=== PATIENT | female | born 1950 | race Caucasian/White ===

== ENCOUNTER 2021-07-23 11:45 | Outpatient (REF) | payer OTHER, SELFPAY ==
[2021-07-23 13:42] LABS: MANUAL DIFF FLAG NO
[2021-07-23 14:03] LABS: Basophils Absolute Auto 0.1 X10*3/uL (0.0-0.2); Basophils Percent Auto 0.5 % (0-2); Eosinophils Absolute Auto 0.3 X10*3/uL (0.0-0.4); Eosinophils Percent Auto 2.8 % (0-4); Hemoglobin 14.9 g/dl (12.0-16.0); Imm Gran Abs Auto 0.02 X10*3/uL (0.00-0.03); Imm Gran Pct Auto 0.2 % (0.0-0.4); Lymphocytes Absolute Auto 2.1 X10*3/uL (1.2-4.9); Lymphocytes Percent Auto 20.7 % (20-40); Mean Corpuscular HGB Conc 32.4 g/dl (31.0-35.0); Mean Corpuscular Hemoglobin 29.3 pg (27.0-33.0); Mean Corpuscular Volume 90.6 fL (80-98); Mean Platelet Volume 11.4 fL (9.4-12.3); Monocytes Percent Auto 9.6 % (2-11); Neutrophils Absolute Auto 6.8 X10*3/uL (2.0-8.3); Neutrophils Percent Auto 66.2 % (45-73); Platelet Count 426 X10*3/uL (160-400); Red Blood Count 5.08 X10*6/uL (4.20-5.50); White Blood Count 10.3 X10*3/uL (4.8-10.8)
[2021-07-23 14:10] LABS: Estimated Average Glucose 108 mg/dL; Hemoglobin A1c % 5.4 %
[2021-07-23 14:27] LABS: Anion Gap 15 (12-20); Blood Urea Nitrogen 11 mg/dL (9-16); Carbon Dioxide 23 mmol/L (22-29); Chloride 108 mmol/L (96-108); Estimated Glomerular Filt Rate > 60; Glucose Random 102 mg/dL (60-115); Sodium 142 mmol/L (135-145)
[2021-07-23 14:41] LABS: Thyroid Stimulating Hormone 1.11 uIU/mL (0.32-4.0)
== END 2021-07-23 11:46 | disposition home or self-care (01) ==
LOC: HO.HMGCLDS 11:45
PROVIDERS: PCP Physician Assistant Medical; Visit Provider Physician Assistant
DX: R10.9 Unspecified abdominal pain (principal); R42 Dizziness and giddiness; R63.4 Abnormal weight loss; R35.1 Nocturia
CPT/HCPCS: 36415; 80048; 83036; 84443; 85025

== ENCOUNTER 2024-05-28 13:45 | Outpatient (AMB) | payer OTHER, SELFPAY ==
--- OUTSIDE RECORDS SUMMARY | 2024-05-28 13:46 | XMS_ITS | Continuity of Care Document ---
Author Organization [facility] ter Address [address] [place] [id number]- Care Team Providers Care Classified Advertising Manager Name Role Phone Not on Staff, PCP Primary Care Physician Unavail able Encounter [facility] [place] Date(s): 02/01/22 - 02/01/[address] [address]- Encounter Diagnosis Blurred vision(Final) - 02/01/22 Discharge Disposition: A-D/C Home Attending Physician: Nerissa Hays MD Admitting Physician: Nerissa Hays MD Referring Physician: Not on Staff, Referring MD Allergies, Adverse Reactions, Alerts Substance Reaction Severity Status penicillin Active Bee Stings Active Latex Active Vital Signs Most recent to oldest [Reference Range]: 1 2 3 Oxygen Saturation [94-100 %] 100 % (02/01/22 4:02 PM) 100 % (02/01/22 2:22 PM) Pulse Rate [55-90 bpm] 64 bpm (02/01/22 6:14 PM) 64 bpm (02/01/22 4:02 PM) 65 bpm (02/01/22 2:22 PM) Blood Pressure [90-138/55-84 mm Hg] 129/71mm Hg (02/01/22 4:02 PM) 128/59mm Hg (02/01/22 2:22 PM) Respiratory Rate [16-30 br/min] 18 br/min (02/01/22 4:02 PM) 18 br/min (02/01/22 2:22 PM) Temperature [96.8-100.4 DegF] 98.5 DegF (02/01/22 4:02 PM) 98.7 DegF (02/01/22 2:22 PM) Mode of Delivery (Oxygen) Room air (02/01/22 4:02 PM) Room air (02/01/22 2:22 PM) Blood pressure sites Arm, left (02/01/22 4:02 PM) Temperature Route Oral (02/01/22 4:02 PM) Oral (02/01/22 2:22 PM) Social History Social History Type Response Smoking Status Never smoker entered on: 01/23/18 Sex
--- NOTE | 2024-05-28 14:14 | MHC.OFFWIV ---
Intake Vital Signs 05/28/24 14:15 Height 5 ft 6.75 in Weight 156 lb BMI 24.6 BP 118/84 Blood Pressure Location Lt brachial Position Sitting Pulse 76 Pulse Source Pulse Oximeter Temp 97.7 F Temp Source Temporal Artery Scan Pulse Oximetry (%) 96 Oxygen Delivery Method Room Air Intake Visit Reasons: EP ?UTI Intake Note: pt c/o urinary urgency and discomfort. Started Patient Tobacco Use Status: Never used Tobacco Allergies Penicillins [PENICILLINS] Allergy (Intermediate, Verified 05/28/24 14:14) HIVES latex [LATEX] Allergy (Mild, Verified 05/28/24 14:14) RASH Do you need a note to return to daycare/school/sports/work: No HPI HPI Comments History of Present Illness Details This is a 74-year-old female who presented to the walk-in clinic with her daughter complaining of dysuria and increased urinary frequency with decreased urine volume x2 days. Patient had an episode of urinary incontinence this morning, which is highly unusual for the patient. She denies any fever/chills. She denies any flank/back pain. Patient is otherwise feeling well no abdominal pain or nausea/vomiting/diarrhea. [facility] Medical History (Updated 07/23/21 @ 11:39 by CHER Pena) Nocturia more than twice per night Abdominal pain Dizziness Weight loss, non-intentional Social History Patient Tobacco Use Status: Never used Tobacco Review of Systems Const All systems reviewed & are unremarkable except as noted in HPI and below Reports no additional complaints Eyes Reports no additional complaints ENT Reports no additional complaints Card Reports no additional complaints Resp Reports no additional complaints GI Reports no additional complaints Reports no additional complaints Musc Reports no additional complaints Skin/Breast Reports system reviewed and no additional complaints, except as documented Neuro Reports no additional complaints Psych Reports no additional complaints Endo Reports no additional complaints Carroll/Lymph Reports no additional complaints Aller/Immun Reports no additional complaints Physical Exam Vital Signs: Last Vital Signs Temp 97.7 F 05/28/24 14:15 Pulse 76 05/28/24 14:15 BP 118/84 05/28/24 14:15 Pulse Ox 96 05/28/24 14:15 Oxygen Delivery Method Room Air 05/28/24 14:15 BMI result Body Mass Index 24.6 Const Other: Vital signs reviewed. Constitutional: Non-toxic appearing. No acute distress. Well-developed and well-nourished. HEENT: Normocephalic and atraumatic. Skin: Warm and dry. No rashes or lesions noted. Neck: Full and painless range of motion. No cervical lymphadenopathy. Cardio: Regular rate. No lower extremity edema. No JVD. Pulmonary: No respiratory distress. No accessory muscle usage. Gastrointestinal: Soft, nontender, and nondistended in all 4 quadrants. Normoactive bowel sounds in all 4 quadrants. Genitourinary: No CVA tenderness. Musculoskeletal: Normal range of motion in joints throughout the body. No deformity or other signs of injury. Neuro: Alert and oriented x4. Cranial nerves 2-12 grossly intact. No focal deficits appreciated. Psych: Normal mood and affect. Results AMB Urinalysis, Automated UA Leukoctes 70 Jessica/uL Last Edit by Nikita Quiroz CMA on 05/28/24 14:31 UA Nitrite Negative Last Edit by Nikita Quiroz CMA on 05/28/24 14:31 UA Urobilinogen 0.2 mg/dL Last Edit by Nikita Quiroz CMA on 05/28/24 14:31 UA Protein 15 mg/dL Last Edit by Nikita Quiroz CMA on 05/28/24 14:31 UA pH 5.5 Last Edit by Nikita Quiroz CMA on 05/28/24 14:31 UA Blood 10 Enzo/uL Last Edit by Nikita Quiroz CMA on 05/28/24 14:31 UA Specific [place] 1.025 Last Edit by Nikita Quiroz CMA on 05/28/24 14:31 UA Ketone Positive Last Edit by Nikita Quiroz CMA on 05/28/24 14:31 UA Bilirubin 1 mg/dL Last Edit by Nikita Quiroz CMA on 05/28/24 14:31 UA Glucose 0 mg/dL Last Edit by Nikita Quiroz CMA on 05/28/24 14:31 Results Reviewed Results Reviewed: Laboratory Last Values Urine pH (Auto) 5.5 05/28/24 14:30 Specific [place] (Auto) 1.025 05/28/24 14:30 Urine Protein (Auto) 15 mg/dL 05/28/24 14:30 Glucose (UA)(Auto) 0 mg/dL 05/28/24 14:30 Urine Ketones (Auto) Positive 05/28/24 14:30 Urine Blood (Auto) 10 Enzo/uL 05/28/24 14:30 Urine Nitrite (Auto) Negative 05/28/24 14:30 Urine Bilirubin (Auto) 1 mg/dL 05/28/24 14:30 Urine Urobilinogen (Auto) 0.2 mg/dL 05/28/24 14:30 Leukocyte Esterase (Auto) 70 Jessica/uL 05/28/24 14:30 Assessment & Plan Assessment & Plan (1) Urinary tract infection: Code(s): N39.0 - Urinary tract infection, site not specified Qualifiers: Urinary tract infection type: acute cystitis Hematuria presence: without hematuria Qualified Code(s): N30.00 - Acute cystitis without hematuria Plan: This is a 74-year-old female who presented to the walk-in clinic with her daughter complaining of dysuria and increased urinary frequency with decreased urine volume x2 days. POCT urinalysis shows positive leukocyte esterase concerning for acute cystitis. Patient's vital signs are stable, physical exam is otherwise benign, and patient is overall nontoxic appearing. No CVA tenderness or systemic symptoms to suggest acute pyelonephritis. History and physical most consistent with an acute uncomplicated cystitis. Patient was given a prescription for p.o. trimethoprim/sulfamethoxazole 800/160 mg twice daily x3 days. Patient's daughter requested the least frequent dosing as well as the shortest duration of time of her antibiotics as the patient's family is currently helping her with her medications. Patient was advised to follow-up here or proceed directly to the emergency room if she were to develop fever/chills, nausea/vomiting, flank/back pain, or worsening/persistent symptoms. Patient and her daughter verbalized understanding and they are in agreement with the plan. Orders: Orders AMB Urinalysis Automated Today Lidia Christopher NP Z13.9 - Encounter for screening, unspecified Medications: New sulfamethoxazole-trimethoprim 800-160 mg 1 tab PO BID 3 days 6 tabs 0RF CHER Morrison Coding Level of Care Code Est Pt Level 3 (14337) Diagnoses Acute cystitis without hematuria N30.00 Urinary tract infection type: acute cystitis Hematuria presence: without hematuria
[2024-05-28 14:15] VITALS: BP 118/84; PULSE 76; TEMP 36.5; O2SAT 96; BMI 24.6
== END 2024-05-28 15:39 | disposition home or self-care (01) ==
PROVIDERS: PCP Internal Medicine; Visit Provider Physician Assistant Medical
DX: N30.00 Acute cystitis without hematuria (principal)
CPT/HCPCS: 81003; 99213

== ENCOUNTER 2024-08-05 14:07 | Outpatient (AMB) | payer MEDICARE, OTHER, SELFPAY ==
--- NOTE | 2024-08-05 14:08 | MHC.OFFWIV ---
Intake Vital Signs 08/05/24 14:19 Height 5 ft 6.75 in Weight 156 lb BMI 24.6 BP 122/80 Blood Pressure Location Lt brachial Position Sitting Pulse 72 Pulse Source Pulse Oximeter Temp 97.6 F Temp Source Oral Pulse Oximetry (%) 97 Oxygen Delivery Method Room Air Intake Visit Reasons: EP-uti Intake Note: Patient here for itching, burning sensation at times which has been going on for a couple weeks. Patient Tobacco Use Status: Never used Tobacco Allergies Penicillins [PENICILLINS] Allergy (Intermediate, Verified 08/05/24 14:18) HIVES latex [LATEX] Allergy (Mild, Verified 08/05/24 14:18) RASH Do you need a note to return to daycare/school/sports/work: No HPI HPI Comments History of Present Illness Details Patient is a 74-year-old female who is here with her daughter complaining of at least 1 week of burning with urination, increased urgency and frequency of urination. She denies any fevers, low back pain or blood in her urine. Her daughter explains that the family helps her with her medications so she was requesting the same medication she got over the summer because it is only for 3 days and the family will have to be available to give her the medications so she is requesting in the shortest dose possible. She tells me that she had similar symptoms in the summer and was given Bactrim and it worked well after a 3 day course. [facility] Medical History (Updated 08/05/24 @ 14:35 by Paula Ttutle PA-C) Nocturia more than twice per night Abdominal pain Dizziness Weight loss, non-intentional Social History Patient Tobacco Use Status: Never used Tobacco Review of Systems Const All systems reviewed & are unremarkable except as noted in HPI and below Physical Exam Vital Signs: Last Vital Signs Temp 97.6 F 08/05/24 14:19 Pulse 72 08/05/24 14:19 BP 122/80 08/05/24 14:19 Pulse Ox 97 08/05/24 14:19 Oxygen Delivery Method Room Air 08/05/24 14:19 BMI result Body Mass Index 24.6 Const General: cooperative, healthy appearing, comfortable and no acute distress Orientation/consciousness: patient oriented x3 HEENT Head: Yes normal to inspection Ears: hearing grossly normal bilaterally General nose exam: Normal external nose present Face and sinus: Yes normal facial exam Neck Neck: Yes normal visual inspection, Yes trachea midline and Yes supple Resp Effort & Inspection: normal respiratory effort and able to speak in complete sentences Skin General skin exam: no rashes or lesions noted Neuro General: patient oriented x3 Psych Appearance: grossly normal Speech and movement: Normal speech and movement present Attitude: cooperative Thought process: Normal thought process present Insight: Good insight present (Psych) Judgement: Good judgement present (Psych) Assessment & Plan Assessment & Plan (1) UTI (urinary tract infection): Code(s): N39.0 - Urinary tract infection, site not specified Qualifiers: Urinary tract infection type: acute cystitis Hematuria presence: with hematuria Qualified Code(s): N30.01 - Acute cystitis with hematuria Plan: UA negative for leukocyte esterase and nitrites. However it was positive for blood. She is likely developing an infection based on her HPI. Sent Bactrim for 3 days, as requested. Plan See above Medications: Refilled sulfamethoxazole-trimethoprim 800-160 mg 1 tab PO BID 3 days 6 tabs 0RF Coding Level of Care Code New Pt Level 3 (91359) Diagnoses Acute cystitis with hematuria N30.01 Urinary tract infection type: acute cystitis Hematuria presence: with hematuria
[2024-08-05 14:19] VITALS: BP 122/80; PULSE 72; TEMP 36.4; O2SAT 97; BMI 24.6
== END 2024-08-05 14:37 | disposition home or self-care (01) ==
PROVIDERS: PCP Internal Medicine; Visit Provider Physician Assistant
DX: N30.01 Acute cystitis with hematuria (principal); Z13.9 Encounter for screening, unspecified

== ENCOUNTER → 2024-08-05 14:07 | Outpatient (BNVA) | payer MEDICARE, MEDICAID, OTHER, SELFPAY | PROVIDERS: PCP Internal Medicine; Visit Provider Physician Assistant | DX: N30.01 Acute cystitis with hematuria (principal) | CPT/HCPCS: 81003; 99202 ==

== ENCOUNTER 2024-11-29 11:13 | Inpatient (IN) | payer MEDICARE, SELFPAY ==
--- NOTE | ~2024-11-29 | XR_ITS ---
CLINICAL HISTORY: cough 1 view chest x-ray Comparison: CR - XR CHEST 1V - 11/30/24 01:13 EST Findings: Left basilar consolidation and small left effusion. Right lung is clear. Heart size is stable. No acute osseous findings. IMPRESSION: 1. Left basilar consolidation and small left pleural effusion. This document has been electronically signed by: Linda Butterfield MD on 12/05/2024 08:52:56
--- NOTE | ~2024-11-29 | CT_ITS ---
CLINICAL HISTORY: left flank pain. Kidnye stones CT abdomen and pelvis without contrast Comparison: None Findings: No consolidation or effusion. Mild atelectasis at the lung bases. Distended gallbladder with large fundal gallstone. No inflammatory change or bile duct dilatation. 3 mm obstructing right ureteropelvic junction stone. Mild hydronephrosis. No significant perinephric fat stranding. No bowel obstruction, pneumoperitoneum, or pneumatosis. Small umbilical hernia contains fat without induration. Extensive distal colonic diverticulosis without diverticulitis. Hysterectomy. Ovaries not identified. Normal appendix. Urinary bladder unremarkable. Osteopenia. Old fractures at T12, L1, L2, L3, L5, and S2. IMPRESSION: 1. 3 mm obstructing right ureteropelvic junction stone. 2. Additional findings as noted above. No CT explanation for left flank pain. This document has been electronically signed by: Joanie Walker MD on 11/29/2024 18:47:07
--- NOTE | ~2024-11-29 | XR_ITS ---
CLINICAL HISTORY: agitation, rales bilateral bases 1 view chest x-ray Comparison: None Findings: Low lung volumes. Prominent interstitium. No consolidation or effusion. Heart size at the upper limits. Osteopenia. No fracture. IMPRESSION: Prominent interstitium is nonspecific. This could be due to edema or infection. This document has been electronically signed by: Joanie Walker MD on 11/30/2024 02:06:09
--- NOTE | ~2024-11-29 | CT_ITS ---
CLINICAL HISTORY: fall CT head without contrast Comparison: None Findings: No intra-axial mass, midline shift, hydrocephalus, or acute hemorrhage. Moderate atrophy like change. Mild mucosal thickening in the sinuses. No fluid levels. Partial opacification of left mastoids. Right mastoids clear. The orbits are unremarkable. There is no acute fracture. IMPRESSION: 1. Mild left mastoid and paranasal sinus disease of uncertain chronicity. 2. No acute intracranial findings. This document has been electronically signed by: Joanie Walker MD on 11/29/2024 22:20:24
--- NOTE | ~2024-11-29 | CT_ITS ---
EXAMINATION: CT CHEST WITHOUT IV CONTRAST INDICATION: L rib ttp, s/p fall COMPARISON: There are no prior studies available for comparison. TECHNIQUE: Helical CT scan of the chest was performed without intravenous contrast. Coronal and sagittal reformatted images were generated and reviewed. This CT exam was performed with one or more of the following dose reduction techniques: automated exposure control, adjustment of the mA and/or kV according to patient size, use of iterative reconstruction technique. DLP: 760 mGy-cm CHEST: THYROID: The thyroid is unremarkable. LUNGS: There is subsegmental atelectasis at both lung bases. MEDIASTINUM: There is no mediastinal lymphadenopathy. CATINA: Evaluation of the hilar regions is limited by lack of intravenous contrast material. CARDIOVASCULATURE: The heart is normal in size. There is no pericardial effusion. The thoracic aorta is normal in caliber. There is an aberrant right subclavian artery. DEGREE OF CORONARY CALCIFICATION: none PLEURA: There are tiny bilateral pleural effusions. No pneumothorax. MAIN AIRWAYS: The mainstem bronchi and proximal branches are patent. AXILLA: There is no axillary lymphadenopathy. BONES AND SOFT TISSUES: There are nondisplaced fractures of the left 5th and 6th ribs. UPPER ABDOMEN: The visualized portions of the liver, spleen, and adrenals have an unremarkable appearance. CT/CT chest wo IV con IMPRESSION: 1. Nondisplaced fractures of the left 5th and 6th ribs. 2. Tiny bilateral pleural effusions with adjacent subsegmental atelectasis. 3. Aberrant right subclavian artery. Electronically signed by: Kush Lauren MD 11/30/2024 03:17 PM [facility]
--- NOTE | ~2024-11-29 | CT_ITS ---
CLINICAL HISTORY: rib fractures, new consolidation r o hemothorax CT chest without contrast Comparison: CT/ME/SR - CT CHEST WO IV CON - 11/30/24 14:29 EST Findings: No mediastinal mass or lymphadenopathy. No cardiomegaly. Trace calcified coronary artery disease. Normal size thoracic aorta with a trace amount of calcified atherosclerotic disease. Aberrant right subclavian artery. Consolidation in the lower lobes. Question ground-glass opacity versus motion. No pneumothorax. Small bilateral pleural effusions measuring fluid attenuation, previously trace. Mild height loss T12 and L2 and severe height loss of L1, unchanged. Fracture of left 4th through 6th rib of the posterior/lateral aspect. The 6th rib fracture is displaced by up 3 mm. No identified acute right rib fractures; there is motion Question sludge ball in the gallbladder measuring 3.3 cm. Motion versus mild gallbladder wall thickening. Colonic diverticulosis. Impression: Fracture of the left 4th through 6th ribs. No pneumothorax or hemothorax. Small bilateral pleural effusions, increased since the prior study. Consolidation in the lower lobes could be atelectasis and/or pneumonia. Ground-glass opacity versus motion which could be secondary to edema or infectious/inflammatory. Suspect a sludge ball in the gallbladder measuring 3.3 cm. Motion artifact versus mild gallbladder wall thickening. Evaluate further with right upper quadrant ultrasound. This document has been electronically signed by: Jes Maddox MD on 12/05/2024 13:32:32
--- NOTE | ~2024-11-29 | CT_ITS ---
CLINICAL HISTORY: fall CT cervical spine without contrast Comparison: None Findings: Normal vertebral body alignment. Severe hypertrophic multilevel facet disease. [id number] disc disease most significant C6-C7. Moderate to severe foraminal stenosis throughout the cervical spine. Osteopenia. No acute fracture. Visualized intracranial contents are unremarkable. No cervical fluid collections or masses. Aberrant right subclavian artery noted. Mild atelectasis in the upper lungs. IMPRESSION: Degenerative spondylosis cervical spine with no acute fracture. This document has been electronically signed by: Joanie Walker MD on 11/29/2024 22:20:07
[2024-11-29 11:23] VITALS: BP 114/59; PULSE 81; O2SAT 96
[2024-11-29 11:25] VITALS: BMI 26.1
--- NOTE | 2024-11-29 11:45 | ED_ITS ---
HPI - General Adult General Chief complaint: Abdominal Pain Stated complaint: L FLANK PAIN PER EMS Time Seen by Provider: 11/29/24 11:21 Source: patient Mode of arrival: ambulatory Limitations: no limitations History of Present Illness ED Provider: Nolan Kruger HPI narrative: 74-year-old female history of dementia UTI, Alzheimer's presents to ED for left flank left lower abdominal pain. Patient states flank. It is worse on movement. Patient denies any recent trauma. Due to pain patient rather not walk due to pain. Patient has sent me she moves her torso and walk she has flank low back pain. Patient denies any urinary/bowel incontinence. LASER BEAM MACHINE OPERATOR was presents to confirm patient's history. Patient and LASER BEAM MACHINE OPERATOR denies any fever or chills or coughing. Related Data Home Medications ?Medication ?Instructions ?Recorded ?Confirmed diltiazem HCl 240 mg 240 mg PO DAILY 05/28/24 11/30/24 capsule,extended release 24 hr fluoxetine 20 mg capsule 20 mg PO DAILY 05/28/24 11/30/24 loratadine 10 mg tablet 10 mg PO DAILY PRN Allergy Symptoms 05/28/24 11/30/24 acetaminophen 650 mg 1,300 mg PO BID 11/30/24 11/30/24 tablet,extended release atorvastatin 20 mg tablet 20 mg PO DAILY 11/30/24 11/30/24 cholecalciferol (vitamin D3) 50 50 mcg PO DAILY 11/30/24 11/30/24 mcg (2,000 unit) tablet (Vitamin D3) fluticasone propionate 50 1 spray intranasal DAILY 11/30/24 11/30/24 mcg/actuation nasal spray,suspension food supplemt, lactose-reduced 1 ea PO DAILY 11/30/24 11/30/24 (Ensure oral liquid) hydrocortisone acetate 1 % topical 1 appl topical DAILY PRN Rash 11/30/24 11/30/24 cream hydroxyzine HCl 25 mg tablet 25 mg PO TID PRN Anxiety 11/30/24 11/30/24 lidocaine 5 % topical cream 1 appl topical DAILY PRN Pain 11/30/24 11/30/24 olmesartan 5 mg tablet 5 mg PO DAILY 11/30/24 11/30/24 vitamin B complex 1 tab PO DAILY 11/30/24 11/30/24 Previous Rx's ?Medication ?Instructions ?Recorded cefuroxime axetil 250 mg tablet 250 mg PO Q12H 7 days #14 tabs 11/29/24 naproxen 500 mg tablet 500 mg PO BID PRN pain #14 tabs 11/29/24 Allergies Allergy/AdvReac Type Severity Reaction Status Date / Time Penicillins [PENICILLINS] Allergy Intermediate HIVES Verified 11/29/24 11:25 latex [LATEX] Allergy Mild RASH Verified 11/29/24 11:25 Review of Systems 2 Review of Systems: Left flank Yes all other systems are reviewed and are negative [facility] Past Medical History Medical History (Updated 11/30/24 @ 15:31 by CHER Larsen) Nocturia more than twice per night Abdominal pain Dizziness Weight loss, non-intentional Social History Social History Patient Tobacco Use Status: Never used Tobacco Smoked in Last 30 Days: No Use of substances other than those prescribed or required for medical reasons: No Advance Directives: No Advance Directives Information Provided: Yes Do you have a plan to hurt others: No Plan Physical Exam ED Vital Signs: Vital Signs - 24 hr 11/29/24 21:15 11/29/24 23:48 11/30/24 01:48 Temperature 97.8 F 97.8 F 98.2 F Pulse Rate 59 75 79 Respiratory Rate 18 16 16 Blood Pressure 143/77 H 147/77 H 115/67 Pulse Oximetry 95 95 97 Oxygen Delivery Method Room Air Room Air Room Air 11/30/24 06:23 11/30/24 07:15 11/30/24 07:16 Temperature 97.0 F 97.7 F Pulse Rate 58 77 77 Respiratory Rate 16 16 18 Blood Pressure 148/57 H 123/62 123/62 Pulse Oximetry 95 95 Oxygen Delivery Method Room Air Room Air 11/30/24 08:55 11/30/24 10:25 Temperature 98.7 F 97.8 F Pulse Rate 68 68 Respiratory Rate 16 16 Blood Pressure 138/63 127/65 Pulse Oximetry 97 96 Oxygen Delivery Method Room Air Room Air BMI result Body Mass Index 26.1 Const General: cooperative, healthy appearing, comfortable and no acute distress Orientation/consciousness: patient oriented x3 HENMT Head: Yes normal to inspection, Yes No palpable skull fracture present, Yes normocephalic and Yes atraumatic Ears: hearing grossly normal bilaterally, external ears normal, TM's normal bilaterally, TM normal on the right, TM normal on the left, EAC's normal, mastoids normal and no periauricular adenopathy Throat: Yes posterior oropharynx normal, Yes tonsils normal and Yes uvula midline Eyes General: appearance normal, both eyes and all related structures Neck Neck: Yes normal visual inspection, Yes full ROM, Yes no lymphadenopathy, Yes no meningeal signs, Yes trachea midline, Yes supple, No anterior neck swelling and No tender Chest Chest palpation & inspection: normal inspection of the chest and normal palpation of entire chest wall Resp Effort & Inspection: normal respiratory effort and able to speak in complete sentences Cardio Jugular venous distension: no JVD Heart sounds: S1 normal heart sound present and S2 normal heart sound present GI Inspection: Yes normal to inspection Palpation (GI): Soft to palpation, not firm, nontender, no guarding and not rigid General: Yes CVA tenderness (Left. Also were pain on moving) Back/Spine/Pelvis Back: CVA tenderness (Left. Also were pain on moving) Skin General skin exam: no rashes or lesions noted, elasticity normal and turgor normal Neuro General: patient oriented x3, gait normal, tone normal, moves all extremities, Normal light touch and pain sensation, no meningeal signs, no focal motor deficits, CN's II-XI intact bilaterally and normal sensation to monofilament Extrem General: Yes normal to inspection, Yes full ROM and Yes capillary refill normal Psych Appearance: grossly normal, well kempt and not disheveled Course Reevaluation(s) Reevaluation #1: Rosy Simmons NP 11/29/2024 22:30 - physician observation is starting at this time, reviewed narrative below Received patient in a brief sign out D Nadine KWON, received sign-out on patient pending CT imaging after a fall in the emergency department. CT remains pending at this time. Case management had become involved in her case, given daughter expressing concerns for patient returning home this evening given the late hour, and her history of dementia, daughter felt that she would be better suited for assistance with discharge home in the morning. The daughter lives in [place], she does not have local family. There is a family friend locally as well as her CHART COMPUTER her CHART COMPUTER would not be able to be with her tonight. Our upper caser Jesenia MCCANN thought that during her time of evaluation with the patient she appeared uncomfortable, she seemed to be moving about on the bed having a hard time sitting still. Order was placed for patient to receive acetaminophen for analgesia. Nursing staff advised me that when they attempted to provide medication to patient she became acutely agitated, spitting the medication out yelling kicking and swinging at staff. She was not able to be redirected verbally. She received an additional dose of lorazepam 2 mg. Despite previous notations in the chart with provider having spoken with patient's CHART COMPUTER Dana, who noted that sundowning, and agitated behaviors are not uncommon for her. Patient's daughter as well as her son report that this acute agitation is is entirely new behavior for her. She has not experienced behaviors like this in the past. I am unable to discern whether she is having pain as she is not answering any questions for me. 23:15 - On re-evaluation patient is resting on stretcher with eyes closed, she arouses to verbal stimuli but not answering questions purposefully. Will allow patient additional rest at this time. CT of the head is without acute intracranial pathology, and CT of the cervical spine without acute fracture subluxation. IMPRESSION: 1. Mild left mastoid and paranasal sinus disease of uncertain chronicity. 2. No acute intracranial findings. IMPRESSION: Degenerative spondylosis cervical spine with no acute fracture. 00:30 - unable to obtain much history from patient, to be expected secondary to sedative effects from lorazepam. Is not clear whether she is experiencing any abdominal or flank pain upon palpation which traction she does not overtly endorse pain no grimacing or guarding, but stating various different numbers. I am able to passively range her bilateral lower extremities without difficulty or meeting any resistance no signs of pain wincing or guarding. I do note at this time that she has bilateral lower extremity pitting edema 1+ on the right 2+ on the left, she does not follow commands for auscultation of lung sounds but she does appear to have some mild rales at the bilateral bases, not certain if this is baseline for her core she has any underlying CHF. It is unclear to me whether the agitated behavior she has exhibited today are entirely new for her as there is conflicting information from her caregiver versus family members, I am less inclined to think that this is acute delirium secondary to urinary tract infection, on review urinalysis with gross microscopic hematuria, 2+ leukocyte esterase, urine WBC is 6-10 but also with squamous epithelial cells, trace urine bacteria. She is afebrile. In part her persistent agitated behavior may be medication side effect as she is not chronically exposed to benzodiazepines. Plan to assess BNP, obtain CXR to evaluate for pulmonary vascular congestion, viral serologies. Her LFTs are within normal range, do not suspect hyperammonemia/hepatic encephalopathy as etiology for agitation/confusion. Signed out to ED Attending Dr. Cardona, if CXR/viral serologies unremarkable, she will remain in physician observation for PT/CM and disposition Reevaluation #2: 11/30/24--physician observation continued. Labs and imaging reviewed. Case management evaluated patient plan was for patient to be brought home by daughter with resumption of home health services. However daughter at bedside and states patient's current mental status is atypical for her. States this is not her baseline. Patient in exquisite amount of left-sided rib pain. No appreciable ecchymosis/erythema or deformity. Chest x-ray showing possible CHF vs infectious etiology, mild bilateral LE pitting edema noted, chronic per daughter. Lower suspicion for acute CHF at this time. >Will obtain CT chest for further eval. Additional labs added on including ammonia. Concern for acute encephalopathy. Patient will require admission for further workup. -ammonia, magnesium and lipase WNL 1523--CT chest wo IV con IMPRESSION: 1. Nondisplaced fractures of the left 5th and 6th ribs. 2. Tiny bilateral pleural effusions with adjacent subsegmental atelectasis. 3. Aberrant right subclavian artery. > plan to admit for further management. Case discussed with hospitalist, Dr. Fuentes Medications Administered Discontinued Medications Generic Name Dose Route Start Last Admin Trade Name Freq PRN Reason Stop Dose Admin Acetaminophen 975 mg 11/29/24 22:18 11/29/24 23:00 Acetaminophen 325 Mg Tablet PO 11/29/24 22:19 Not Given ONCE ONE Cefuroxime Axetil 500 mg 11/29/24 19:13 11/29/24 19:31 Cefuroxime Axetil 500 Mg Tablet PO 11/29/24 19:14 500 mg ONCE ONE Administration Ketorolac Tromethamine 15 mg 11/30/24 02:10 11/30/24 02:17 Ketorolac Tromethamine 15 Mg/Ml Vial IVPUSH 11/30/24 02:11 15 mg ONCE ONE Administration Lorazepam 2 mg 11/29/24 16:07 11/29/24 16:31 Lorazepam 2 Mg/Ml Vial IVPUSH 11/29/24 16:08 2 mg ONCE ONE Administration Lorazepam 2 mg 11/29/24 22:46 11/29/24 23:19 Lorazepam 1 Mg Tablet PO 11/29/24 22:47 Not Given ONCE ONE Lorazepam 2 mg 11/29/24 22:58 11/29/24 23:13 Lorazepam 2 Mg/Ml Vial IVPUSH 11/29/24 22:59 2 mg ONCE ONE Administration Olanzapine 10 mg 11/29/24 12:23 11/29/24 12:33 Olanzapine 10 Mg Vial IM 11/29/24 12:24 10 mg STAT STA Administration Medical Decision Making Medical Decision Making MDM Narrative: 74-year-old female with flank pain radiating to lower back abdomen that is worse with movement seems more muscular but do basic labs and a UA most likely imaging probably CT scan. Patient well-appearing not in any distress. 12:22pm; patient patient is starting being aggressive and noncompliant for labs and imaging due to dementia Alzheimer's. LASER BEAM MACHINE OPERATOR patient usually has these moments of agression around this time. Patient tried to hit staff and was walking away from the bed. Son Grant was on the phone and he says he makes final decision for his mom and states his mother is not compliant and continue to be aggressive he gave us permission to give patient medication to calm her down. We tracked doctor patient fell least 20 minutes with no improvement. Zyprexa ordered. 12:33pm: Patient is scratching me and kicking me and staff. Patient was placed in bed and Zyprexa 10 was given with help of ANGELO. 7:02pm: Patient, and pleasant. Patient was able to get CT scan done which showed she had 3 mm UVJ stone. As per LASER BEAM MACHINE OPERATOR patient has episodes of dementia . She states she will be home with patient. ANGELO explained the patient will need follow-up with outpatient Urology. ANGELO Cortez will contact patient's Provider. . Not suspecting urosepsis. Not suspecting a KI pyelonephritis. Patient walk around the ED pleasant. 7:14pm: Spoke with patient's daughter Anali who was informed of patient's diagnosis of kidney stones and UTI. She was informed of worrisome signs and informed for patient to return to the ED immediately if she has a. She is agreeable for patient to be given a cephalosporin to ensure there is no allergic reaction. And she states patient is part of the pace program and they will organize her follow-up with Urology. She was informed patient will not be given any narcotic due to history of Alzheimer's and dementia. Patient will be given naproxen for pain. 7;37pm: Waiting for patient to receive oral antibiotics we heard a loud thud in the room and found patient sitting down with back face in the wall. Patient fell and hit her head until the wall. Patient fell onto the her buttocks and her head hit the wall. Ca states patient was trying to use the commode. Patient has a parietallaceration that required [address] scan and cervical C-spine scan ordered. Case signed out to CHER NOWAK Differential Diagnosis Differential Diagnoses: The differential diagnosis associated with the presentation includes (UTI kidney) Admission/Observation Consideration of admission/observation: Escalation of care including admission/observation considered Lab Data MDM Lab Attestation statement: I reviewed the patient's lab results. 11/29/24 14:28 11/29/24 14:28 Labs: Lab Results 11/29/24 11/29/24 11/30/24 Range/Units 14:25 14:28 01:27 WBC 12.7 H (4.8-10.8) X10*3/uL RBC 4.74 (4.20-5.50) X10*6/uL Hgb 14.1 (12.0-16.0) g/dl Hct 42.0 (37.0-47.0) % MCV 88.6 (80.0-98.0) fL MCH 29.7 (27.0-33.0) pg MCHC 33.6 (31.0-35.0) g/dl RDW 13.5 (11.0-16.0) % Plt Count 431 H (160-400) X10*3/uL MPV 10.0 (9.4-12.3) fL Immature Gran % (Auto) 0.4 (0.0-0.4) % Neut % (Auto) 66.7 (45-73) % Lymph % (Auto) 20.0 (20-40) % Gilliam % (Auto) 8.9 (2-11) % Eos % (Auto) 3.4 (0-4) % Baso % (Auto) 0.6 (0-2) % Lymph # (Auto) 2.5 (1.2-4.9) X10*3/uL Gilliam # (Auto) 1.1 (0.1-1.2) X10*3/uL Eos # (Auto) 0.4 (0.0-0.4) X10*3/uL Baso # (Auto) 0.1 (0.0-0.2) X10*3/uL Abs Immat Gran (auto) 0.05 H (0.00-0.03) X10*3/uL Absolute Neuts (auto) 8.4 H (2.0-8.3) x10*3/uL Absolute Nucleated RBC 0.000 (0.0-0.012) X10*3/uL Nucleated RBC % (auto) 0.0 (0.0-0.2) /100WBC Sodium 141 (135-145) mmol/L Potassium 3.6 (3.3-5.1) mmol/L Chloride 111 H (96-108) mmol/L Carbon Dioxide 21 L (22-29) mmol/L Anion Gap 13 (12-20) BUN 20 H (9-16) mg/dL Creatinine 0.79 (0.5-1.4) mg/dL Estim Creat Clear Calc 64.0 Estimated GFR > 60 Random Glucose 102 (60-115) mg/dL Calcium 9.9 (8.4-10.2) mg/dL Magnesium (1.6-2.6) mg/dL Total Bilirubin 0.3 (0.0-1.0) mg/dL AST 22 (5-31) U/L ALT 15 (0-31) U/L Alkaline Phosphatase 117 (39-117) U/L Ammonia (13-55) umol/L B-Natriuretic Peptide 49 (<100) pg/mL Total Protein 8.1 H (6.5-8.0) g/dL Albumin 4.5 (3.5-5.0) g/dL Lipase (8-78) U/L Urine Color Yellow Urine Appearance Turbid Urine pH 5.5 (5.0-9.0) Ur Specific Lennon 1.025 (1.005-1.025) Urine Protein 30 (1+) H (Neg-Trace) mg/dL Urine Glucose (UA) Negative (Negative) mg/dL Urine Ketones Trace (Negative) mg/dL Urine Blood Large (3+) H (Negative) Urine Nitrite Negative (Negative) Ur Leukocyte Esterase Moderate (2+) H (Negative) Urine RBC >20 H (0-2) /HPF Urine WBC 6-10 (0-5) /HPF Ur Squamous Epith Cells 11-20 (0-2) /HPF Calcium Oxalate Crystal Present Urine Bacteria Trace (None Seen) Hyaline Casts 3-5 (0-2) /LPF Influenza Type A (PCR) NEGATIVE (Negative) Influenza Type B (PCR) NEGATIVE (Negative) RSV RNA Qual (PCR) NEGATIVE (Negative) SARS-CoV-2 RNA (RT-PCR) NEGATIVE (Negative) 11/30/24 Range/Units 13:05 WBC (4.8-10.8) X10*3/uL RBC (4.20-5.50) X10*6/uL Hgb (12.0-16.0) g/dl Hct (37.0-47.0) % MCV (80.0-98.0) fL MCH (27.0-33.0) pg MCHC (31.0-35.0) g/dl RDW (11.0-16.0) % Plt Count (160-400) X10*3/uL MPV (9.4-12.3) fL Immature Gran % (Auto) (0.0-0.4) % Neut % (Auto) (45-73) % Lymph % (Auto) (20-40) % Gilliam % (Auto) (2-11) % Eos % (Auto) (0-4) % Baso % (Auto) (0-2) % Lymph # (Auto) (1.2-4.9) X10*3/uL Gilliam # (Auto) (0.1-1.2) X10*3/uL Eos # (Auto) (0.0-0.4) X10*3/uL Baso # (Auto) (0.0-0.2) X10*3/uL Abs Immat Gran (auto) (0.00-0.03) X10*3/uL Absolute Neuts (auto) (2.0-8.3) x10*3/uL Absolute Nucleated RBC (0.0-0.012) X10*3/uL Nucleated RBC % (auto) (0.0-0.2) /100WBC Sodium (135-145) mmol/L Potassium (3.3-5.1) mmol/L Chloride (96-108) mmol/L Carbon Dioxide (22-29) mmol/L Anion Gap (12-20) BUN (9-16) mg/dL Creatinine (0.5-1.4) mg/dL Estim Creat Clear Calc Estimated GFR Random Glucose (60-115) mg/dL Calcium (8.4-10.2) mg/dL Magnesium 2.4 (1.6-2.6) mg/dL Total Bilirubin (0.0-1.0) mg/dL AST (5-31) U/L ALT (0-31) U/L Alkaline Phosphatase (39-117) U/L Ammonia 39 (13-55) umol/L B-Natriuretic Peptide (<100) pg/mL Total Protein (6.5-8.0) g/dL Albumin (3.5-5.0) g/dL Lipase 13 (8-78) U/L Urine Color Urine Appearance Urine pH (5.0-9.0) Ur Specific Lennon (1.005-1.025) Urine Protein (Neg-Trace) mg/dL Urine Glucose (UA) (Negative) mg/dL Urine Ketones (Negative) mg/dL Urine Blood (Negative) Urine Nitrite (Negative) Ur Leukocyte Esterase (Negative) Urine RBC (0-2) /HPF Urine WBC (0-5) /HPF Ur Squamous Epith Cells (0-2) /HPF Calcium Oxalate Crystal Urine Bacteria (None Seen) Hyaline Casts (0-2) /LPF Influenza Type A (PCR) (Negative) Influenza Type B (PCR) (Negative) RSV RNA Qual (PCR) (Negative) SARS-CoV-2 RNA (RT-PCR) (Negative) Independent Interpretation I performed an independent interpretation of an: CT Scan Radiology Impression Discussion of test interpretation with radiology: I have reviewed the radiologist's reading. Independent Historian Clinical information obtained from an independent historian. History obtained from or confirmed by: Other (LASER BEAM MACHINE OPERATOR Dana) Discharge Plan Discharge Clinical Impression: Encephalopathy, Calculus, ureter, Acute UTI, Fracture, ribs Patient Disposition: Admitted As Inpatient Additional Instructions: Patient will need follow-up with Urology. Return to the ED immediately for any altered mental status, fever, chills, nausea, vomiting, flank pain, bloody urine, or any other concerning symptoms. Report Number: [id number]: Total DLP = 861.00 mGy-cm CLINICAL HISTORY: left flank pain. Kidnye stones CT abdomen and pelvis without contrast Comparison: None Findings: No consolidation or effusion. Mild atelectasis at the lung bases. Distended gallbladder with large fundal gallstone. No inflammatory change or bile duct dilatation. 3 mm obstructing right ureteropelvic junction stone. Mild hydronephrosis. No significant perinephric fat stranding. No bowel obstruction, pneumoperitoneum, or pneumatosis. Small umbilical hernia contains fat without induration. Extensive distal colonic diverticulosis without diverticulitis. Hysterectomy. Ovaries not identified. Normal appendix. Urinary bladder unremarkable. Osteopenia. Old fractures at T12, L1, L2, L3, L5, and S2. IMPRESSION: 1. 3 mm obstructing right ureteropelvic junction stone. 2. Additional findings as noted above. No CT explanation for left flank pain. This document has been electronically signed by: Joanie Walker MD on 11/29/2024 18:47:07 Dictated By: Joanie Walker MD Signed By: <Electronically signed by Joanie Walker MD in [place]> 11/29/241846 DD/ 46 TD/TT: 11/29/241846 Automobile Drivers: Print Language: Slovenian
[2024-11-29] MEDS: OLANZapine 10 MG VIAL IM (12:33)
--- OUTSIDE RECORDS SUMMARY | 2024-11-29 13:09 | XMS_ITS | Clinical Summary ---
Author Organization [facility] Address [address] [place] [address] Phone Care Team Providers Care Student Career Development Specialist Name Role Phone Sean Roberts MD Primary Care Provider + Allergies Active Allergy Reactions Criticality Noted Date Comments Bee Pollen 03/18/2006 Other Reaction(s): Hives/Urticaria Erythromycin Nausea And Vomiting 03/18/2006 Latex 12/05/2005 Other Reaction(s): Hives/Urticaria Penicillins 12/05/2005 Other Reaction(s): Hives/Urticaria Medications Medication Sig Dispensed Refills Start Date End Date Status multivit-min/folic acid/lutein (CENTRUM SILVER ORAL) Take by mouth. Active dilTIAZem CD (CARDIZEM CD) 240 mg 24 hr capsule Take 1 capsule (240 mg total) by mouth 1 (one) time each day. 07/27/2024 Active acetaminophen (TYLENOL) 500 mg capsule Take 2 Capsules by mouth. Active cholecalciferol (VITAMIN D-3) 25 mcg (1,000 unit) capsule Take by mouth. 01/01/2011 Active docusate sodium (COLACE) 100 mg capsule Take 100 mg by mouth. Active EPINEPHrine (EpiPen 2-Sedrick) 0.3 mg/0.3 mL injection Inject 1 Units as directed as needed for Other (anaphylaxis). 02/10/2024 Active FLUoxetine (PROzac) 20 mg capsule Take 1 capsule (20 mg total) by mouth 1 (one) time each day. 04/14/2024 Active fluticasone propionate (FLONASE) 50 mcg/actuation nasal spray 2 Sprays by Nasal route daily. 02/05/2023 Active hydrOXYzine HCL (ATARAX) 10 mg tablet Take 1 Tablet by mouth every 8 hours as needed for Itching. 07/27/2024 Active lidocaine (LIDODERM) 5 % patch Place 1 Patch onto the skin every 24 hours. 2024 Active loratadine (CLARITIN) 10 mg tablet Take 1 Tablet by mouth at bedtime. 04/14/2024 Active ondansetron (ZOFRAN) 4 mg tablet Take 1 Tablet by mouth. Active pravastatin (PRAVACHOL) 10 mg tablet Take 1 tablet (10 mg total) by mouth 1 (one) time each day. 02/10/2024 Active Active Problems Problem Noted Date Diagnosed Date Diarrhea 09/15/2024 White matter disease 01/22/2022 Gallstone 06/04/2019 Chronic headache 08/16/2016 Overview (09/15/2024): Cluster pattern; onset prior to 40's. IBS (irritable bowel syndrome) 08/16/2016 Overview (09/15/2024): IBS/C; childhood onset. Alt C/D as adult. Midline cystocele 04/15/2016 Mixed hyperlipidemia 08/14/2012 Obesity, unspecified 01/01/2011 Vitamin D deficiency 12/14/2009 Anxiety 12/15/2008 Diverticulitis of colon without hemorrhage 03/16 Overview (09/15/2024): Incidental finding at colonoscopy 03/16/2008. Palpitations 12/25/2005 Encounters Date Type Department Care Team Description 10/01/2024 2:54 PM EST - 10/01/2024 11:[address] [facility] Hospital Encounter [facility] Xray [address] [place] [id number] Back pain, lumbosacral Discharge Disposition: Home or Self Care 10/01/2024 1:30 PM EST - 10/01/2024 11:[address] [facility] Hospital Encounter [facility] Bone Density [address] [place] [id number] Vitamin D deficiency, unspecified; Encounter for screening for osteoporosis Discharge Disposition: Home or Self Care 09/22/[address] [place] [address] [place], [place] from Last 3 Months Immunizations Name Administration Dates Next Due H1N1 Inj Preservative Free 10/25/2009 Influenza Quadravalent, MDCK , 0.5ml, with preservative (Flucelvax) 6mo and older 09/10/2017 Influenza trivalent, 0.5mL ( Fluad) 65yo and older 07/27/2024,07/30/2023,08/03/2021,08/18,08/10/2018,08/05/2016,07/04/2015 ,08/10/2014,08/24/2013,08/14/2012,06/29,07/20/2010 Influenza trivalent, 0.5mL, preservative free (Fluarix; FluLaval; Fluzone) ages 6mo and older (Afluria) 3 years and older 07/10/2020,08/27/2007 Influenza, Unspecified 08/27/2022,07/01/2020 Moderna SARS-CoV-2 COVID-19, mRNA, LNP-S, preservative free 02/23/2021 Pneumococcal conjugate 13 va lent (Prevnar 13, PCV13) 2mo and older 08/06/2019,03/09/2015 Pneumococcal polysaccharide 23 valent (Pneumovax 23) 2yo and older 08/05/2016 Td Tetanus diptheria (Tdvax) 7yo and older 05/11/2005 Tdap Tetanus diptheria acell ular pertussis (Boostrix; Adacel) 7yo and older 03/10/2013 Zoster Live 08/14/2012 Zoster recombinant (Shingrix ) 19yo and older 01/04/2022,10/25/2021,10/28/2019 Surgical History Surgery Date Site/Laterality Comments KNEE SURGERY 2002 Right PROCEDURE: HISTORICAL KNEE SURGERY; COMMENT: arthroscopic COLONOSCOPY 2013 PROCEDURE: HISTORICAL COLONOSCOPY; COMMENT: diverticulosis COLONOSCOPY 2007 PROCEDURE: HISTORICAL COLONOSCOPY; COMMENT: diverticulosis SALPINGOOPHORECTOMY 09/2013 PROCEDURE: AK LAPAROSCOPY W/RMVL ADNEXAL STRUCTURES; COMMENT: r cystadenoma; BSO done by Dr. Wyman OTHER SURGICAL HISTORY Left PROCEDURE: HISTORY OTHER; COMMENT: wrist fracture left Medical History Medical History Date Comments Family history of colonic polyps 03/16/2008 DX:Family history of colonic polyps; COMMENT: Negative colonoscopy 03/16/2008, no colon cancer screening needed for 5 years. Diverticulosis of colon (wit hout mention of hemorrhage) 03/16/2008 DX:Diverticulosis of colon ( without mention of hemorrhage); COMMENT: Incidental finding at colonoscopy 03/16/2008. FHx: migraine headaches 07/20/2010 DX:FHx: migraine headaches Obesity, unspecified 01/01/2011 DX:Obesity, unspecified Mixed hyperlipidemia 08/14/2012 DX:Mixed hy perlipidemia History of other specified c onditions presenting hazards to health DX:History of other speci fied conditions presenting hazards to health; COMMENT: pt states she had overies removed about 2 years ago. pt stsates it was not cancer but was told it could have turned into cancer if not removed IBS (irritable bowel syndrome) 08/16/2016 D X:IBS (irritable bowel syndrome); COMMENT: IBS/C; childhood onset. Chronic headache 08/16/2016 DX:Chronic head ache Gallstone 06/04/2019 DX:Gallstone Diarrhea DX:Diarrhea Anxiety state DX:Anxiety state Esophageal reflux DX:Esophageal reflux Depressive disorder DX:Depressiv e disorder Family History Medical History Relation Name Comments Breast cancer Aunt m. aunt dx55 maternal No Known Problems Brother Cataracts Father No Known Problems Maternal Grandfather No Known Problems Maternal Grandmother Cervical cancer Mother No Known Problems Other No Known Problems Paternal Grandfather No Known Problems Paternal Grandmother No Known Problems Sister 1 No Known Problems Sister 2 No Known Problems Sister 3 No Known Problems Uncle Blindness Neg Hx Colon cancer Neg Hx Glaucoma Neg Hx Macular degeneration Neg Hx Ovarian cancer Neg Hx Strabismus Neg Hx Relation Name Status Comments Aunt m. aunt dx55 Brother Daughter Anali Alive Father (Age 91) HEART Maternal Grandfather Maternal Grandmother Mother (Age 63) CANCER CER VIX Other Paternal Grandfather Paternal Grandmother Sister 1 LUNG CANCER Sister 2 Alive htn colon polyp arrythmia thyroid disease kidney stone Sister 3 Alive borderline dm k idney stone Son Grant Alive Uncle Social History Tobacco Use Types Packs/Day Years Used Date Smoking Tobacco: Never Smokeless Tobacco: Never Alcohol Use Standard Drinks/Week Comments No 0 (1 standard drink = 0.6 oz pur e alcohol) Sex and Gender Information Value Date Recorded Sex Assigned at Not on file Gender Identity Not on file Sexual Orientation Not on file Job Start Date Occupation Industry Not on file Not on file Not on file Obstetrics History Last Filed Vital Signs Vital Sign Reading Time Taken Comments Blood Pressure 128/80 07/27/2024 1:35 PM EDT Pulse 78 07/27/2024 1:35 PM EDT Temperature - - Respiratory Rate - - Oxygen Saturation - - Inhaled Oxygen Concentration - - Weight 72.6 kg (160 lb) 07/27/2024 1:35 PM EDT Height 167.6 cm (5' 6 ) 07/27/2024 1:35 PM EDT Body Mass Index 25.82 07/27/2024 1:35 PM EDT Plan of Treatment Health Maintenance Due Date Last Done Comments Cholesterol Screening (Lipid Panel) 10/05/2022 Depression Screening 10/05/2022 Falls Risk Assessment 10/05/2022 Medicare Annual Wellness Visit 10/05/2022 Social Influencers of Health Screening 10/05/2022 DTaP,Tdap,and Td Vaccines (3 - Td or Tdap) 03/10/2023 03/10/2013, 05/11/2005 Colorectal Cancer Screening: Colonoscopy 01/14/2024 01/13/2014 COVID-19 Vaccine ( season) 2024 10/25/2021, 03/21/2021, 02/23/2021 Breast Cancer Screening 08/29/2024 08/29/20, 08/23/2021, 12/07/2018, Additional history exists Osteoporosis Screening (Bone Density Screening) 10/01/2029 10/01/2024, 12/07/2018 Hepatitis C Screening Completed 05/28/2013 Zoster Vaccines Completed 01/04/2022, 09/28, 10/28/2019, Additional history exists Influenza Vaccine Completed 07/27/2024, , 08/27/2022, Additional history exists Pneumococcal Vaccine: 65+ Years Completed 08/31/2024, 08/06/2019, 08/05/2016, Additional history exists RSV Immunization Patients 60+ Years Old Completed 09/21/2024 HIB Vaccines Aged Out No longer eligi ble based on patient's age to complete this topic HPV Vaccines Aged Out No longer eligi ble based on patient's age to complete this topic Hepatitis A Vaccines Aged Out No long er eligible based on patient's age to complete this topic Hepatitis B Vaccines Aged Out No long er eligible based on patient's age to complete this topic IPV Vaccines Aged Out No longer eligi ble based on patient's age to complete this topic MMR Vaccines Aged Out No longer eligi ble based on patient's age to complete this topic Meningococcal ACWY Vaccine Aged Out N o longer eligible based on patient's age to complete this topic RSV Immunization Patients Under 20 months Aged Out No longer eligible based on patient's age to complete this topic Varicella Vaccines Aged Out No longer eligible based on patient's age to complete this topic Procedures Procedure Name Priority Date/Time Associated Diagnosis Comments XR TOTAL SPINE 1 VIEW Routine 10/01/2024 3:03 PM EST Back pain, lumbosacral BD BONE DENSITY DXA AXIAL SKELETON Routine 10/01/2024 2:16 PM EST Vitamin D deficiency, unspecified Encounter for screening for osteoporosis SCREENING MAMMOGRAPHY BI 2-VIEW BREAST INC CAD Routine 08/29/2022 10:34 AM EDT Encounter for screening mammogram for malignant neoplasm of breast COLONOSCOPY Routine 01/13/2014 HEPATITIS C SCREENING Routine 05/28/2013 from Last 3 Months or Most Recently Relevant to Health Maintenance Results * XR Total Spine 1 View (10/01/2024 3:03 PM EST) Anatomical Region Laterality Modality Spine Radiographic Jovanna ging 10/04/2024 9:34 AM EST Impressions 10/04/2024 9:37 AM EST Diffuse osteopenia. Mild superior end plate compression deformity T12 and L1 vertebra likely acute fractures. These are new compared to previous lumbar spine x-ray 11/16/2023. -------- FINAL REPORT -------- Dictated By: Yoandy Moser Dictated Date: 10/04/2024 09:34 ET Assigned Physician: Yoandy Moser Reviewed and Electronically Signed By: Yoandy Moser Signed Date: 10/04/2024 09:37 ET Workstation ID: [id number] Transcribed By: Self Edit Transcribed Date: 10/04/2024 09:34 ET Narrative 10/04/2024 9:37 AM EST EXAMINATION: Total spine, one view. CLINICAL INDICATION: Back pain. COMPARISON: Lumbar spine MRI ??11/16/2023. Lumbar spine x-ray 120 and 24 FINDINGS: Single AP view of the enteric tube thoracic and lumbar spine reveals mild levoscoliosis of the thoracolumbar junction. There is diffuse osteopenia. There is mild compression deformity T12 and L1 vertebra . Rest of the thoracic spine is limited on AP view however no obvious deformity seen. There is diffuse osteopenia. The paravertebral soft tissues are normal. Procedure Note Yoandy Moser MD - 10/04/2024 EXAMINATION: Total spine, one view. CLINICAL INDICATION: Back pain. COMPARISON: Lumbar spine MRI 11/16/2023. Lumbar spine x-ray 120 and 24 FINDINGS: Single AP view of the enteric tube thoracic and lumbar spinereveals mild levoscoliosis of the thoracolumbar junction. There is diffuseosteopenia. There is mild compression deformity T12 and L1 vertebra . Restof the thoracic spine is limited on AP view however no obvious deformityseen. There is diffuse osteopenia. The paravertebral soft tissues arenormal. IMPRESSION: Diffuse osteopenia. Mild superior end plate compression deformity T12 andL1 vertebra likely acute fractures. These are new compared to previouslumbar spine x-ray 11/16/2023. -------- FINAL REPORT -------- Dictated By: Yoandy Moser Dictated Date: 10/04/2024 09:34 ET Assigned Physician: Yoandy Moser Reviewed and Electronically Signed By: Yoandy Moser Signed Date: 10/04/2024 09:37 ET Workstation ID: [id number] Transcribed By: Self Edit Transcribed Date: 10/04/2024 09:34 ET Sean Roberts MD IMG XR PROCEDURE S * BD Bone Density DXA Axial Skeleton (10/01/2024 2:16 PM EST) Anatomical Region Laterality Modality Wrist, Hip, L-spine Bone Densito metry 10/03/2024 9:46 AM EST Impressions 10/03/2024 9:47 AM EST Osteoporosis. ? [id number] -------- FINAL REPORT -------- Dictated By: Pratibha Stone Dictated Date: 10/03/2024 09:46 ET Assigned Physician: Pratibha Stone Reviewed and Electronically Signed By: Pratibha Stone Signed Date: 10/03/2024 09:47 ET Workstation ID: [id number] Transcribed By: Self Edit Transcribed Date: 10/03/2024 09:46 ET Narrative 10/03/2024 9:47 AM EST History: Low estrogen state due to menopause. Personal history of fracture. Comparison: No comparison imaging at this institution. Findings: Bone densitometry is performed utilizing dual energy x-ray absorptiometry (DXA) in the Chat[employer] Prodigy unit. The lumbar spine and proximal femora are evaluated in the AP projection. The FRAX questionaire was completed. The results indicate osteoporosis, with a left total femur T-score of -3.6. The Z score is -2.1, indicating low bone mineral density for age. ??The detailed DEXA report will be mailed to the referring physician's office. DualFemur FRAX: 10-year Probability of Fracture: Major Osteoporotic 33.8 percent ??Hip 14.0 percent. Procedure Note Pratibha Stone MD - 10/03/2024 History: Low estrogen state due to menopause. Personal history offracture. Comparison: No comparison imaging at this institution. Findings: Bone densitometry is performed utilizing dual energy x-ray absorptiometry(DXA) in the Chat[employer] Prodigy unit. The lumbar spine and proximal femora areevaluated in the AP projection. The FRAX questionaire was completed. The results indicate osteoporosis, with a left total femur T-score of-3.6. The Z score is -2.1, indicating low bone mineral density for age.The detailed DEXA report will be mailed to the referring physician'soffice. DualFemur FRAX: 10-year Probability of Fracture: Major Osteoporotic 33.8percent Hip 14.0 percent. IMPRESSION: Osteoporosis. [id number] -------- FINAL REPORT -------- Dictated By: Pratibha Stone Dictated Date: 10/03/2024 09:46 ET Assigned Physician: Pratibha Stone Reviewed and Electronically Signed By: Pratibha Stone Signed Date: 10/03/2024 09:47 ET Workstation ID: [id number] Transcribed By: Self Edit Transcribed Date: 10/03/2024 09:46 ET Sean Roberts MD IMG DXA PROCEDUR ES * SCREENING MAMMOGRAPHY BI 2-VIEW BREAST INC CAD (08/29/2022 10:34 AM EDT) Anatomical Region Laterality Modality Radiographic Jovanna ging 08/23/2021 5:23 PM EDT Narrative 08/29/2022 12:45 PM EDT This is a summary report. The complete report is available in the patient's medical record. If you cannot access the medical record, please contact the sending organization for a detailed fax or copy. Full field digital screening mammography, using both 2D mammography and tomosynthesis, reviewed with CAD and compared to previous. ??The breasts are composed of fatty and fibroglandular tissue. ??No suspicious mass, architectural distortion or suspicious calcifications are identified. IMPRESSION: : No mammographic evidence of malignancy. BIRADS 1-Negative; N. 5 year breast cancer risk assessment 2.0 % Lifetime breast cancer risk assessment 5.1 % Breast cancer risk category Low (<15%) Procedure Note Ronnie Paez MD - 12/01/2023 This is a summary report. The complete report is available in thepatient's medical record. If you cannot access the medical record, pleasecontact the sending organization for a detailed fax or copy. Full field digital screening mammography, using both 2D mammography andtomosynthesis, reviewed with CAD and compared to previous. The breastsare composed of fatty and fibroglandular tissue. No suspicious mass,architectural distortion or suspicious calcifications are identified. IMPRESSION: : No mammographic evidence of malignancy. BIRADS 1-Negative; N. 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 Expl anation Health Care Decision (hx) 11/19/2023 HE ALTH CARE PROXY Health Care Decision (hx) 11/19/2023 HE ALTH CARE PROXY Health Care Decision (hx) 04/14/2018 AD GUZMAN DIRECTIVE Health Care Decision (hx) 04/14/2018 AD GUZMAN DIRECTIVE Health Care Decision (hx) 04/14/2018 AD GUZMAN DIRECTIVE Health Care Decision (hx) 04/14/2018 AD GUZMAN DIRECTIVE Health Care Decision (hx) 04/14/2018 AD GUZMAN DIRECTIVE Health Care Decision (hx) 04/14/2018 AD GUZMAN DIRECTIVE Health Care Decision (hx) 04/14/2018 AD GUZMAN DIRECTIVE Health Care Decision (hx) 04/14/2018 AD GUZMAN DIRECTIVE Care Teams Student Career Development Specialist Relationship Specialty Start Date End Date Sean Roberts MD [address] [place] [id number] PCP - General Internal Medicine 10/01/24
--- OUTSIDE RECORDS SUMMARY | 2024-11-29 13:09 | XMS_ITS | Clinical Summary ---
Author Organization [facility] Address [address] [place] [address] Care Team Providers Care Supervisor Weaving Name Role Phone Luiza St MD Primary Care Provider [phone] Allergies No known active allergies Medications Medication Sig Dispensed Refills Start Date End Date Status hydrOXYzine (ATARAX) 25 MG tablet Take 1 tablet (25 mg total) by mouth. 0 Active FLUoxetine (PROzac) 20 MG capsule Take 1 capsule (20 mg total) by mouth daily. 0 Active dilTIAZem (CARDIZEM) 30 MG tablet Take 1 tablet (30 mg total) by mouth 4 (four) times a day. 0 Active pravastatin (PRAVACHOL) tablet 20 mg Take 1 tablet (20 mg total) by mouth daily. 0 Active Active Problems No known active problems Social History Tobacco Use Types Packs/Day Years Used Date Smoking Tobacco: Never Smokeless Tobacco: Never Tobacco Cessation:Counseling Given: Not Answered Alcohol Use Standard Drinks/Week Comments Not Currently 0 (1 standard drink = 0.6 oz pur e alcohol) Social Sex and Gender Information Value Date Recorded Sex Assigned at Not on file Gender Identity Not on file Sexual Orientation Not on file Job Start Date Occupation Industry Not on file Not on file Not on file Last Filed Vital Signs Vital Sign Reading Time Taken Comments Blood Pressure 143/73 10/28/2023 11:22 AM EST Pulse 74 10/28/2023 11:22 AM EST Temperature 37 ??C (98.6 ??F) 10/28/2023 11:22 AM EST Respiratory Rate - - Oxygen Saturation 100% 10/28/2023 11:22 AM EST Inhaled Oxygen Concentration - - Weight 68.9 kg (152 lb) 10/28/2023 11:22 AM EST Height - - Body Mass Index - - Plan of Treatment Health Maintenance Due Date Last Done Comments Hepatitis C Screening 1950 COVID-19 Vaccine (#1) 1950 Depression Screening 1962 Preventative Health Evaluation 1968 Colon Cancer Screening (Colonoscopy) 1995 Breast Cancer Screening (Mammogram) 2000 Fall Risk Assessment 2015 Osteoporosis Screening (DEXA Scan) 2015 DTap / Tdap / Td (2 - Td or Tdap) 03/10/2023 03/10/2013 Influenza Vaccine (#1) 2024 3, 08/03/2021, 09/10/2017, Additional history exists RSV Adult > 60+ Yrs or (1 - 1-dose 75+ series) 2025 Pneumococcal Vaccine Completed 08/05/2016, 03/09/20 Shingrix-Zoster Vaccine Completed 01/05/20, 10/25/2021, 10/28/2019 Hepatitis B Vaccines Aged Out No long er eligible based on patient's age to complete this topic RSV Ped < 20 months Aged Out No longe r eligible based on patient's age to complete this topic Care Teams Supervisor Weaving Relationship Specialty Start Date End Date Luiza St MD [address] [place] [address] PCP - General Internal Medicine 09/10/23
[2024-11-29 14:33] LABS: MANUAL DIFF FLAG NO
[2024-11-29 14:36] LABS: Appearance Urine Turbid; Color Urine Yellow; Glucose Urine UA Negative (Negative); Leukocyte Esterase Urine Moderate (2+) (Negative); Nitrite Urine Negative (Negative); PH 5.5 (5.0-9.0); Specific Gravity - Urine 1.025 (1.005-1.025); UMIC TRIGGER UACC YES; Urine Blood Large (3+) (Negative); Urine Ketones Trace mg/dL (Negative); Urine Protein 30 (1+) mg/dL (Neg-Trace)
[2024-11-29 14:40] VITALS: BP 129/81; PULSE 69; RESP 18; TEMP 36.2; O2SAT 98
[2024-11-29 14:40] LABS: Basophils Absolute Auto 0.1 X10*3/uL (0.0-0.2); Basophils Percent Auto 0.6 % (0-2); Eosinophils Absolute Auto 0.4 X10*3/uL (0.0-0.4); Eosinophils Percent Auto 3.4 % (0-4); Hemoglobin 14.1 g/dl (12.0-16.0); Imm Gran Abs Auto 0.05 X10*3/uL (0.00-0.03); Imm Gran Pct Auto 0.4 % (0.0-0.4); Lymphocytes Absolute Auto 2.5 X10*3/uL (1.2-4.9); Mean Corpuscular HGB Conc 33.6 g/dl (31.0-35.0); Mean Corpuscular Hemoglobin 29.7 pg (27.0-33.0); Mean Corpuscular Volume 88.6 fL (80.0-98.0); Monocytes Absolute Auto 1.1 X10*3/uL (0.1-1.2); Monocytes Percent Auto 8.9 % (2-11); Neutrophils Absolute Auto 8.4 x10*3/uL (2.0-8.3); Neutrophils Percent Auto 66.7 % (45-73); Platelet Count 431 X10*3/uL (160-400); Red Blood Count 4.74 X10*6/uL (4.20-5.50); Red Cell Distribution Width 13.5 % (11.0-16.0); White Blood Count 12.7 X10*3/uL (4.8-10.8)
[2024-11-29 14:45] LABS: Bacteria Urine Trace (None Seen); Calcium Oxalate Crystals Urine Present; RBC Urine >20 /HPF (0-2); UACC Culture Trigger YES
[2024-11-29 14:51] LABS: Alanine Aminotransferase 15 U/L (0-31); Albumin Level 4.5 g/dL (3.5-5.0); Anion Gap 13 (12-20); Aspartate Amino Transferase 22 U/L (5-31); Bilirubin Total 0.3 mg/dL (0.0-1.0); Blood Urea Nitrogen 20 mg/dL (9-16); Calcium 9.9 mg/dL (8.4-10.2); Carbon Dioxide 21 mmol/L (22-29); Chloride 111 mmol/L (96-108); Estimated Glomerular Filt Rate > 60; Glucose Random 102 mg/dL (60-115); Potassium 3.6 mmol/L (3.3-5.1); Sodium 141 mmol/L (135-145); Total Protein 8.1 g/dL (6.5-8.0)
[2024-11-29 15:05] LABS: Alkaline Phosphatase 117 U/L (39-117)
[2024-11-29] MEDS: LORazepam 2 MG/ML VIAL IVPUSH ×2 (16:31→23:13)
[2024-11-29] MEDS: cefuroxime axetiL 500 MG TABLET PO (19:31)
--- NOTE | 2024-11-29 19:34 | PC.NURSE ---
Pt medicated per [facility] plan of care ongoing.
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
[2024-11-29 21:15] VITALS: BP 143/77; PULSE 59; RESP 18; TEMP 36.6; O2SAT 95
--- NOTE | 2024-11-29 21:32 | PC.NURSE ---
T/w contacting daughter Anali at [phone]. Daughter lives in [place], trying to get a flight home tomorrow to bring patient home as pt lives alone. Daughter concerned pt is not safe for DC home alone. AUBRIE aware, plan for PT/CM.
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
[2024-11-29 23:48] VITALS: BP 147/77; PULSE 75; RESP 16; TEMP 36.6; O2SAT 95
[2024-11-30] VITALS (10 sets, daily range): BP systolic 106–148; BP diastolic 53–74; PULSE 58–91; RESP 16–18; TEMP 36.1–37.1; O2SAT 93–99
--- NOTE | 2024-11-30 01:15 | PC.NURSE ---
xray with pt Plan of care ongoing
[2024-11-30 01:53] LABS: B Type Natriuretic Peptide 49 pg/mL (<100)
[2024-11-30 02:10] LABS: Influenza A PCR NEGATIVE (Negative); Influenza B PCR NEGATIVE (Negative); Resp Syncy Virus RNA Qual PCR NEGATIVE (Negative); SARS COV2 PCR INHOUSE NEGATIVE (Negative)
[2024-11-30] MEDS: Ketorolac Tromethamine 15 MG/ML VIAL IVPUSH (02:17)
--- NOTE | 2024-11-30 02:18 | PC.NURSE ---
Pt medicated per [facility] Plan of care ongoing
--- NOTE | 2024-11-30 08:46 | MHC.CM.PN ---
Addendum entered by Shilpi Topete 11/30/24 16:15: Pts cesar Briones present at bedside and very concerned about her mothers condition, stating she is not even close to her baseline and something is wrong. Per ED provider, pt will be evaluated further and likely admitted. Addendum entered by Shilpi Topete 11/30/24 10:17: Return call received from Marium Lee at [facility], per Marium this pt is not with their insurance program. She suggested this CM call [facility] and [facility] to inquire about her being with them. This CM spoke with [facility] and they confirmed this pt is active with their insurance program. Task sent to registration to update insurance info. Addendum entered by Shilpi Topete 11/30/24 09:39: Return call received from pts cesar Briones. This CM shared PT's recommendation for STR for her mother with Anali. Per Anali, she doesn't think her mother will do well there, and would like to instead have her return home with PT services in the home. Anali is currently in route to the hospital from the airport in [place] and will be here this afternoon to set up the plan for her mother. This CM placed a call to [place] program bottle caser Marium Lee to discuss VNA options with her, voicemail left, awaiting return call. Original Note: PT has evaluated pt and are recommending STR. This CM placed a call to pts cesar Briones to discuss STR options, voicemail was left, awaiting return call.
--- NOTE | 2024-11-30 11:21 | PHA.MEDREC ---
Addendum entered by Ulises Chi RPh 11/30/24 11:42: MED REC CHECKED BY [facility] Original Note: Pharmacy Consult ? Medication Reconciliation Pharmacy has completed the medication reconciliation. Utilized list from [employer] program ([phone])
[2024-11-30 13:24] LABS: Ammonia 39 umol/L (13-55)
[2024-11-30 13:32] LABS: Lipase 13 U/L (8-78); Magnesium 2.4 mg/dL (1.6-2.6)
--- NOTE | 2024-11-30 16:08 | P.HPHOSP_ITS ---
History of Present Illness Date of Service: 11/30/24 Chief Complaint: Confusion in backdrop of UTI 74-year-old female history of dementia UTI, Alzheimer's presents to ED for left flank left lower abdominal pain. Patient states flank. It is worse on movement. Patient denies any recent trauma. Due to pain patient rather not walk due to pain. Patient has sent me she moves her torso and walk she has flank low back pain. Patient denies any urinary/bowel incontinence. CLINICAL RESEARCHER was presents to confirm patient's history. Patient and CLINICAL RESEARCHER denies any fever or chills or coughing. Hospital Course Admitted to physician observation after fall in ER with fracture of left 5th and 6th ribs; urine with active sediment empirically started on Ceftin orally. Alzheimer's dementia worsened in the backdrop of UTI. Patient lives alone and unable to return home Review of Systems 2 Review of Systems: Unable to obtain [facility] Medical History Nocturia more than twice per night Abdominal pain Dizziness Weight loss, non-intentional Social History Patient Tobacco Use Status: Never used Tobacco Smoked in Last 30 Days: No Use of substances other than those prescribed or required for medical reasons: No Advance Directives: No Advance Directives Information Provided: Yes Do you have a plan to hurt others: No Plan Meds Allergies Allergy/AdvReac Type Severity Reaction Status Date / Time Penicillins [PENICILLINS] Allergy Intermediate HIVES Verified 11/29/24 11:25 latex [LATEX] Allergy Mild RASH Verified 11/29/24 11:25 Active Medications: Current Medications Acetaminophen (Acetaminophen 325 Mg Tablet) 650 mg PO Q6H PRN PRN Reason: Pain, Mild 1-3,fever,headache Calcium Carbonate (Calcium Carbonate 750 Mg Tab.Chew) 750 mg PO Q4H PRN PRN Reason: Heartburn Ceftriaxone Sodium (Ceftriaxone Sodium 1 Gm Vial) 1 gm IVPUSH DAILY ONE Stop: 11/30/24 16:03 Diltiazem HCl (Diltiazem Hcl Cd 240 Mg Cap.Er.Deg) 240 mg PO DAILY [facility]; Protocol Enoxaparin Sodium (Enoxaparin Sodium 40 Mg/0.4 Ml Syringe) 40 mg SUBCUT Q24H [facility] Fluoxetine HCl (Fluoxetine Hcl 20 Mg Capsule) 20 mg PO DAILY [facility] Hydroxyzine HCl (Hydroxyzine Hcl 25 Mg Tablet) 25 mg PO Q6H PRN PRN Reason: anxiety/restlessness Lactated Ringer's (Lr) 1,000 mls @ 100 mls/hr IVCONT .Q10H [facility] Magnesium Hydroxide (Milk Of Magnesia 30 Ml Oral.Susp) 30 ml PO DAILY PRN PRN Reason: Constipation Melatonin (Melatonin 3 Mg Tablet) 6 mg PO BEDTIME PRN PRN Reason: Insomnia Morphine Sulfate (Morphine Sulfate 4 Mg/Ml Cartridge) 2 mg IVPUSH Q4H PRN; Protocol PRN Reason: Pain, Moderate(Pain Scale 4-6) Non-Formulary Medication (Olmesartan) 5 mg PO DAILY [facility] Ondansetron HCl (Ondansetron Hcl 4 Mg/2 Ml Vial) 4 mg IVPUSH Q8H PRN PRN Reason: Nausea and Vomiting Risperidone (Risperidone 1 Mg Tablet) 1 mg PO BEDTIME PRN PRN Reason: agitation/sundowning Sodium Chloride (0.9 % Sodium Chloride Flush 3 Ml Syringe) 3 ml IVFLUSH QSHIFT [facility] Home Medications ?Medication ?Instructions ?Recorded ?Confirmed ?Last Taken ?Type diltiazem HCl 240 mg 240 mg PO DAILY 05/28/24 11/30/24 Unknown History capsule,extended release 24 hr fluoxetine 20 mg capsule 20 mg PO DAILY 05/28/24 11/30/24 Unknown History loratadine 10 mg tablet 10 mg PO DAILY PRN Allergy Symptoms 05/28/24 11/30/24 Unknown History acetaminophen 650 mg 1,300 mg PO BID 11/30/24 11/30/24 Unknown History tablet,extended release atorvastatin 20 mg tablet 20 mg PO DAILY 11/30/24 11/30/24 Unknown History cholecalciferol (vitamin D3) 50 50 mcg PO DAILY 11/30/24 11/30/24 Unknown History mcg (2,000 unit) tablet (Vitamin D3) fluticasone propionate 50 1 spray intranasal DAILY 11/30/24 11/30/24 Unknown History mcg/actuation nasal spray,suspension food supplemt, lactose-reduced 1 ea PO DAILY 11/30/24 11/30/24 Unknown History (Ensure oral liquid) hydrocortisone acetate 1 % topical 1 appl topical DAILY PRN Rash 11/30/24 11/30/24 Unknown History cream hydroxyzine HCl 25 mg tablet 25 mg PO TID PRN Anxiety 11/30/24 11/30/24 Unknown History lidocaine 5 % topical cream 1 appl topical DAILY PRN Pain 11/30/24 11/30/24 Unknown History olmesartan 5 mg tablet 5 mg PO DAILY 11/30/24 11/30/24 Unknown History vitamin B complex 1 tab PO DAILY 11/30/24 11/30/24 Unknown History Physical Exam 2 Vital Signs and Narrative: Vital Signs: Last Vital Signs Temp 97.8 F 11/30/24 10:25 Pulse 68 11/30/24 10:25 Resp 16 11/30/24 10:25 BP 127/65 11/30/24 10:25 Pulse Ox 96 11/30/24 10:25 O2 Del Method Room Air 11/30/24 10:25 BMI result Body Mass Index 26.1 Const: Other: Awake confused uncomfortable appearing Chest: Other: Tender left lateral chest wall Resp: Other: Clear but diminished all srivastava. Air entry to bases Cardio: Other: No S4; positive S1-S2; no S3 murmurs rubs or gallops GI: Other: Soft nontender nondistended normoactive bowel sounds Neuro: Other: Unable to complete exam but moving all extremities with equal power Extrem: Other: No edema bilaterally Results Labs 11/29/24 14:28 11/29/24 14:28 Labs: Laboratory Results - last 24 hr 11/30/24 11/30/24 01:27 13:05 Magnesium 2.4 Ammonia 39 B-Natriuretic Peptide 49 Lipase 13 Influenza Type A (PCR) NEGATIVE Influenza Type B (PCR) NEGATIVE RSV RNA Qual (PCR) NEGATIVE SARS-CoV-2 RNA (RT-PCR) NEGATIVE Imaging Radiologist's Impressions: Impressions Chest CT 11/30/24 12:39 IMPRESSION: 1. Nondisplaced fractures of the left 5th and 6th ribs. 2. Tiny bilateral pleural effusions with adjacent subsegmental atelectasis. 3. Aberrant right subclavian artery. Electronically signed by: Kush Lauren MD 11/30/2024 03:17 PM [facility] Assessment and Plan (1) Acute metabolic encephalopathy: Status: Acute (2) Acute UTI: Status: Acute (3) Alzheimer's type dementia: Qualifiers: Alzheimer's disease onset: unspecified onset Dementia severity: u nspecified severity Dementia behavioral or psychological symptom: without behavioral, psychotic, or mood disturbance or anxiety Qualified Code(s): G30.9 - Alzheimer's disease, unspecified; F02.80 - Dementia in other diseases classified elsewhere, unspecified severity, without behavioral disturbance, psychotic disturbance, mood disturbance, and anxiety Status: Acute Plan 74-year-old female history of dementia UTI, Alzheimer's presents to ED for left flank left lower abdominal pain. During ER stay fell and sustained fractures of left 5th and 6th ribs. Confusion escalated inpatient unable to return to home setting 1. Acute metabolic encephalopathy likely secondary to UTI -admit to genera medical floor; IV ceftriaxone 1 g daily -we will attempt to repeat urine with blood cultures as well -follow up clinically 2. Nondisplaced fractures left 5th 6th rib -Lidoderm patch q.12 hours -judicious use of morphine -adjust as clinically indicated 3. Alzheimer's type dementia with increased confusion secondary to 1 -continue outpatient therapies as ordered -avoid benzodiazepines at all cost -hydroxyzine 25 mg p.o. q.6 hours p.r.n. anxiety -Risperdal 1 mg at HS for sundowning or agitation Full code Lovenox Will require at least 2 midnights going forward for IV antibiotics to treat UTI causing severe metabolic encephalopathy. Has essentially failed outpatient therapies. This can not be achieved a lesser acute setting Quality Stroke Does the patient have a stroke diagnosis?: No VTE Prior VTE?: No VTE Risk Level:: Medical - moderate - high VTE Device Contraindication: Treatment Not Indicated VTE Drug Contraindication: N/A - Med Ordered
[2024-11-30] MEDS: Lactated Ringers 1,000 ML 100 ML IVCONT (16:25)
[2024-11-30] MEDS: 0.9 % Sodium Chloride Flush 3 ML SYRINGE IVFLUSH ×2 (16:25→21:23)
[2024-11-30] MEDS: Morphine Sulfate 4 MG/ML CARTRIDGE 2 MG IVPUSH (16:33)
--- NOTE | 2024-11-30 17:11 | PC.NURSE ---
Pt adamantly refuses Enoxaprin injection. Will continue to encourage Pt to take injection.
[2024-11-30] MEDS: Enoxaparin Sodium 40 MG/0.4 ML SYRINGE SUBCUT (19:19)
[2024-11-30] MEDS: risperiDONE 1 MG TABLET PO (20:04)
[2024-11-30] MEDS: Melatonin 3 MG TABLET 6 MG PO (20:04)
[2024-11-30] MEDS: hydrOXYzine HCL 25 MG TABLET PO (20:04)
[2024-11-30] MEDS: cefTRIAXone sodium 1 GM VIAL IVPUSH (21:23)
[2024-12-01 00:12] VITALS: BMI 26.9
[2024-12-01] MEDS: Lactated Ringers 1,000 ML 100 ML IVCONT ×2 (02:01→12:20)
[2024-12-01 04:00] VITALS: BP 145/63; PULSE 68; RESP 16; TEMP 36.8; O2SAT 92
[2024-12-01 07:19] VITALS: BP 134/69; PULSE 81; RESP 20; TEMP 37; O2SAT 92
[2024-12-01 07:51] LABS: MANUAL DIFF FLAG NO
[2024-12-01 07:58] LABS: Basophils Absolute Auto 0.1 X10*3/uL (0.0-0.2); Basophils Percent Auto 0.6 % (0-2); Eosinophils Absolute Auto 0.4 X10*3/uL (0.0-0.4); Eosinophils Percent Auto 3.8 % (0-4); Hematocrit 36.5 % (37.0-47.0); Hemoglobin 12.1 g/dl (12.0-16.0); Imm Gran Abs Auto 0.03 X10*3/uL (0.00-0.03); Imm Gran Pct Auto 0.3 % (0.0-0.4); Lymphocytes Absolute Auto 1.8 X10*3/uL (1.2-4.9); Lymphocytes Percent Auto 19.1 % (20-40); Mean Corpuscular HGB Conc 33.2 g/dl (31.0-35.0); Mean Corpuscular Hemoglobin 29.9 pg (27.0-33.0); Mean Corpuscular Volume 90.1 fL (80.0-98.0); Mean Platelet Volume 10.4 fL (9.4-12.3); Monocytes Absolute Auto 1.2 X10*3/uL (0.1-1.2); Monocytes Percent Auto 12.1 % (2-11); Neutrophils Absolute Auto 6.1 x10*3/uL (2.0-8.3); Neutrophils Percent Auto 64.1 % (45-73); Platelet Count 313 X10*3/uL (160-400); Red Blood Count 4.05 X10*6/uL (4.20-5.50); Red Cell Distribution Width 13.8 % (11.0-16.0); White Blood Count 9.6 X10*3/uL (4.8-10.8)
[2024-12-01 08:21] LABS: Alanine Aminotransferase 11 U/L (0-31); Albumin Level 3.4 g/dL (3.5-5.0); Alkaline Phosphatase 87 U/L (39-117); Anion Gap 8 (12-20); Aspartate Amino Transferase 24 U/L (5-31); Bilirubin Total 0.6 mg/dL (0.0-1.0); Blood Urea Nitrogen 14 mg/dL (9-16); Carbon Dioxide 23 mmol/L (22-29); Chloride 114 mmol/L (96-108); Creatinine Clr Calc Pharmacy 73.2; Estimated Glomerular Filt Rate > 60; Glucose Random 101 mg/dL (60-115); Potassium 3.9 mmol/L (3.3-5.1); Sodium 141 mmol/L (135-145); Total Protein 6.2 g/dL (6.5-8.0)
[2024-12-01] MEDS: Morphine Sulfate 4 MG/ML CARTRIDGE 2 MG IVPUSH ×3 (08:29→21:53)
[2024-12-01 08:56] LABS: Calcium 8.8 mg/dL (8.4-10.2)
[2024-12-01] MEDS: hydrOXYzine HCL 50 MG/ML VIAL IM (09:01)
[2024-12-01 09:56] VITALS: O2SAT 90
--- NOTE | 2024-12-01 11:49 | MHC.CM.PN ---
[facility], Pt lives alone and has home care services from [facility] program. 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 At baseline, pt. walks without assistive device, goes out regularly with family (gets her nails done) is able to walk up and down stairs. She began with [facility] this past Jul. PCP is: Sean Roberts. HCP is her dtr, copy will be requested from [facility] program. DCP TBD. CM to follow for DC needs.
--- NOTE | 2024-12-01 12:48 | P.PNIM_ITS ---
Subjective Subjective Date of Service: 12/02/24 Interval History: Agitated this a.m.. Remains confused. Responded well to IV morphine and IM hydroxyzine Review of Systems Unable to obtain Physical Exam 2 Vital Signs: Vital Signs: Last Vital Signs Temp 98.6 F 12/01/24 07:19 Pulse 81 12/01/24 07:19 Resp 20 12/01/24 07:19 BP 134/69 12/01/24 07:19 Pulse Ox 90 L 12/01/24 09:56 O2 Del Method Room Air 12/01/24 09:56 BMI result Body Mass Index 26.9 Const: Other: Awake confused uncomfortable appearing Chest: Other: Tender left lateral chest wall Resp: Other: Clear but diminished all srivastava. Air entry to bases Cardio: Other: No S4; positive S1-S2; no S3 murmurs rubs or gallops GI: Other: Soft nontender nondistended normoactive bowel sounds Neuro: Other: Unable to complete exam but moving all extremities with equal power Extrem: Other: No edema bilaterally Objective Data Active Medications Acetaminophen (Acetaminophen 325 Mg Tablet) 650 mg PO Q6H PRN PRN Reason: Pain, Mild 1-3,fever,headache Calcium Carbonate (Calcium Carbonate 750 Mg Tab.Chew) 750 mg PO Q4H PRN PRN Reason: Heartburn Ceftriaxone Sodium (Ceftriaxone Sodium 1 Gm Vial) 1 gm IVPUSH Q24H [facility] Last Admin: 11/30/24 21:23 Dose: 1 gm Documented By: DOMO Diltiazem HCl (Diltiazem Hcl Cd 240 Mg Cap.Er.Deg) 240 mg PO DAILY [facility]; Protocol Last Admin: 12/01/24 09:09 Dose: Not Given Documented By: RODRIGO Non-Admin Reason: Agitation Enoxaparin Sodium (Enoxaparin Sodium 40 Mg/0.4 Ml Syringe) 40 mg SUBCUT Q24H [facility] Last Admin: 11/30/24 19:19 Dose: 40 mg Documented By: AUDREY Fluoxetine HCl (Fluoxetine Hcl 20 Mg Capsule) 20 mg PO DAILY [facility] Last Admin: 12/01/24 09:09 Dose: Not Given Documented By: RODRIGO Non-Admin Reason: Agitation Hydroxyzine HCl (Hydroxyzine Hcl 25 Mg Tablet) 25 mg PO Q6H PRN PRN Reason: anxiety/restlessness Last Admin: 11/30/24 20:04 Dose: 25 mg Documented By: AUDREY Lactated Ringer's (Lr) 1,000 mls @ 100 mls/hr IVCONT .Q10H [facility] Last Admin: 12/01/24 12:20 Dose: 100 mls/hr Documented By: RODRIGO Lidocaine (Lidocaine 4 % Patch Adh..Patch) 1 patch TRANSDERMA DAILY [facility]; Protocol Last Admin: 12/01/24 09:09 Dose: Not Given Documented By: RODRIGO Non-Admin Reason: Agitation Magnesium Hydroxide (Milk Of Magnesia 30 Ml Oral.Susp) 30 ml PO DAILY PRN PRN Reason: Constipation Melatonin (Melatonin 3 Mg Tablet) 6 mg PO BEDTIME PRN PRN Reason: Insomnia Last Admin: 11/30/24 20:04 Dose: 6 mg Documented By: AUDREY Morphine Sulfate (Morphine Sulfate 4 Mg/Ml Cartridge) 2 mg IVPUSH Q4H PRN; Protocol PRN Reason: Pain, Moderate(Pain Scale 4-6) Last Admin: 12/01/24 08:29 Dose: 2 mg Documented By: RODRIGO Ondansetron HCl (Ondansetron Hcl 4 Mg/2 Ml Vial) 4 mg IVPUSH Q8H PRN PRN Reason: Nausea and Vomiting Risperidone (Risperidone 1 Mg Tablet) 1 mg PO BEDTIME PRN PRN Reason: agitation/sundowning Last Admin: 11/30/24 20:04 Dose: 1 mg Documented By: AUDREY Sodium Chloride (0.9 % Sodium Chloride Flush 3 Ml Syringe) 3 ml IVFLUSH QSHIFT [facility] Last Admin: 12/01/24 09:04 Dose: Not Given Documented By: RODRIGO Non-Admin Reason: IV Running Valsartan (Valsartan 40 Mg Tablet) 20 mg PO DAILY [facility] Last Admin: 12/01/24 09:10 Dose: Not Given Documented By: RODRIGO Non-Admin Reason: Agitation Labs 12/01/24 07:23 12/01/24 07:23 Labs: Laboratory Results - last 24 hr 11/30/24 12/01/24 13:05 07:23 MCV 90.1 MCH 29.9 MCHC 33.2 RDW 13.8 Plt Count 313 D MPV 10.4 Immature Gran % (Auto) 0.3 Neut % (Auto) 64.1 Lymph % (Auto) 19.1 L Schley % (Auto) 12.1 H Eos % (Auto) 3.8 Baso % (Auto) 0.6 Lymph # (Auto) 1.8 Schley # (Auto) 1.2 Eos # (Auto) 0.4 Baso # (Auto) 0.1 Abs Immat Gran (auto) 0.03 Absolute Neuts (auto) 6.1 Absolute Nucleated RBC 0.000 Nucleated RBC % (auto) 0.0 Anion Gap 8 L Estim Creat Clear Calc 73.2 Estimated GFR > 60 Random Glucose 101 Calcium 8.8 D Magnesium 2.4 Total Bilirubin 0.6 AST 24 ALT 11 Alkaline Phosphatase 87 Ammonia 39 Total Protein 6.2 L Albumin 3.4 L Lipase 13 Microbiology Microbiology Results: Microbiology 11/29/24 Unknown Urine Culture - Final Urine clean catch - Clean Catch Midstream Strep agalactiae (Grp B) Assessment and Plan (1) Acute metabolic encephalopathy: Status: Acute (2) Alzheimer's type dementia: Status: Acute (3) Acute UTI: Status: Acute (4) Fracture, ribs: Status: Acute Plan 74-year-old female history of dementia UTI, Alzheimer's presents to ED for left flank left lower abdominal pain. During ER stay fell and sustained fractures of left 5th and 6th ribs. Confusion escalated inpatient unable to return to home setting 1. Acute metabolic encephalopathy likely secondary to UTI -admit to genera medical floor; IV ceftriaxone 1 g daily(initially treated can not obtain urine. We will treat empirically) -we will attempt to repeat urine with blood cultures as well -follow up clinically 2. Nondisplaced fractures left 5th 6th rib -Lidoderm patch q.12 hours -judicious use of morphine -adjust as clinically indicated 3. Alzheimer's type dementia with increased confusion secondary to 1 -continue outpatient therapies as ordered -avoid benzodiazepines at all cost -hydroxyzine 25 mg p.o. q.6 hours p.r.n. anxiety -Risperdal 1 mg at HS for sundowning or agitation Full code Lovenox Will require at least 2 midnights going forward for IV antibiotics to treat UTI causing severe metabolic encephalopathy. Has essentially failed outpatient therapies. This can not be achieved a lesser acute setting Quality Stroke Does the patient have a stroke diagnosis?: No VTE Prior VTE?: No VTE Risk Level:: Medical - moderate - high VTE Device Contraindication: Treatment Not Indicated VTE Drug Contraindication: N/A - Med Ordered
[2024-12-01 20:16] VITALS: BP 137/62; PULSE 83; RESP 23; TEMP 37.1; O2SAT 92
[2024-12-01] MEDS: cefTRIAXone sodium 1 GM VIAL IVPUSH (21:53)
[2024-12-02] MEDS: Lactated Ringers 1,000 ML 100 ML IVCONT (03:55)
[2024-12-02 05:03] VITALS: BP 113/60; PULSE 75; RESP 16; TEMP 37.5; O2SAT 93
[2024-12-02] MEDS: Morphine Sulfate 4 MG/ML CARTRIDGE 2 MG IVPUSH ×2 (09:11→13:20)
[2024-12-02] MEDS: 0.9 % Sodium Chloride Flush 3 ML SYRINGE IVFLUSH ×2 (09:17→22:27)
[2024-12-02] MEDS: hydrOXYzine HCL 25 MG TABLET PO (11:59)
[2024-12-02] MEDS: FLUoxetine HCl 20 MG CAPSULE PO (12:06)
[2024-12-02] MEDS: dilTIAZem HCL CD 240 MG CAP.ER.DEG PO (12:06)
--- NOTE | 2024-12-02 12:48 | PM.NEUROCN ---
History of Present Illness Data of Consult Service Date: 12/02/24 Primary Care Provider: Sean Roberts MD HPI Reason for consult: Dementia and encephalopathy 74 years old woman who probably has underlying diagnosis of dementia came to hospital with abdominal pain and I was asked to see her were confusion. She was unable to provide any history. There was no history of any recent seizure or focal finding or complaint Review of Systems Review of Systems: No recent cold or flu-like illness PMFSH Past Medical History Medical History Nocturia more than twice per night Abdominal pain Dizziness Weight loss, non-intentional Social History Social History Household Members: None Housing: House Do you presently have visiting nurse or other home services: Yes Comment: 1:1 Patient Tobacco Use Status: Never used Tobacco Smoked in Last 30 Days: No Use of substances other than those prescribed or required for medical reasons: No Currently Displaying Signs/Symptoms of Drug Intoxication Withdrawal: No Have you been hit, kicked, punched, or otherwise hurt by someone within the past year? If so, by whom?: No Do you feel safe in your current relationship?: No Current Relationship Is there a partner from a previous relationship who is making you feel unsafe now?: No Are you made to feel afraid or neglected: No (Family answers for pt d/t confusion and hx of dementia) Advance Directives: No Advance Directives Information Provided: Yes Do you have a plan to hurt others: No Plan Recently lost weight without trying: Unsure How much weight loss: Unsure Eating poorly because of decreased appetite: Yes Nutrition screen score: 5 Nutrition Risks: On aspiration precautions Patient : No : No Poor oral hygiene: No service: No Meds Allergies Allergy/AdvReac Type Severity Reaction Status Date / Time Penicillins [PENICILLINS] Allergy Intermediate HIVES Verified 11/29/24 11:25 latex [LATEX] Allergy Mild RASH Verified 11/29/24 11:25 Active Medications: Current Medications Acetaminophen (Acetaminophen 325 Mg Tablet) 650 mg PO Q6H PRN PRN Reason: Pain, Mild 1-3,fever,headache Calcium Carbonate (Calcium Carbonate 750 Mg Tab.Chew) 750 mg PO Q4H PRN PRN Reason: Heartburn Ceftriaxone Sodium (Ceftriaxone Sodium 1 Gm Vial) 1 gm IVPUSH Q24H [facility] Last Admin: 12/01/24 21:53 Dose: 1 gm Diltiazem HCl (Diltiazem Hcl Cd 240 Mg Cap.Er.Deg) 240 mg PO DAILY [facility]; Protocol Last Admin: 12/02/24 12:06 Dose: 240 mg Enoxaparin Sodium (Enoxaparin Sodium 40 Mg/0.4 Ml Syringe) 40 mg SUBCUT Q24H [facility] Last Admin: 12/01/24 17:08 Dose: Not Given Fluoxetine HCl (Fluoxetine Hcl 20 Mg Capsule) 20 mg PO DAILY [facility] Last Admin: 12/02/24 12:06 Dose: 20 mg Hydroxyzine HCl (Hydroxyzine Hcl 25 Mg Tablet) 25 mg PO Q6H PRN PRN Reason: anxiety/restlessness Last Admin: 12/02/24 11:59 Dose: 25 mg Hydroxyzine HCl (Hydroxyzine Hcl 50 Mg/Ml Vial) 25 mg IM Q4H PRN PRN Reason: agitation Lidocaine (Lidocaine 4 % Patch Adh..Patch) 1 patch TRANSDERMA DAILY [facility]; Protocol Last Admin: 12/02/24 09:19 Dose: Not Given Magnesium Hydroxide (Milk Of Magnesia 30 Ml Oral.Susp) 30 ml PO DAILY PRN PRN Reason: Constipation Melatonin (Melatonin 3 Mg Tablet) 6 mg PO BEDTIME PRN PRN Reason: Insomnia Last Admin: 11/30/24 20:04 Dose: 6 mg Morphine Sulfate (Morphine Sulfate 4 Mg/Ml Cartridge) 2 mg IVPUSH Q4H PRN; Protocol PRN Reason: Pain, Moderate(Pain Scale 4-6) Last Admin: 12/02/24 09:11 Dose: 2 mg Ondansetron HCl (Ondansetron Hcl 4 Mg/2 Ml Vial) 4 mg IVPUSH Q8H PRN PRN Reason: Nausea and Vomiting Risperidone (Risperidone 1 Mg Tablet) 1 mg PO BEDTIME PRN PRN Reason: agitation/sundowning Last Admin: 11/30/24 20:04 Dose: 1 mg Sodium Chloride (0.9 % Sodium Chloride Flush 3 Ml Syringe) 3 ml IVFLUSH QSHIFT [facility] Last Admin: 12/02/24 09:17 Dose: 3 ml Valsartan (Valsartan 40 Mg Tablet) 20 mg PO DAILY [facility] Last Admin: 12/02/24 09:19 Dose: Not Given Home Medications ?Medication ?Instructions ?Recorded ?Confirmed ?Last Taken ?Type diltiazem HCl 240 mg 240 mg PO DAILY 05/28/24 11/30/24 Unknown History capsule,extended release 24 hr fluoxetine 20 mg capsule 20 mg PO DAILY 05/28/24 11/30/24 Unknown History loratadine 10 mg tablet 10 mg PO DAILY PRN Allergy Symptoms 05/28/24 11/30/24 Unknown History acetaminophen 650 mg 1,300 mg PO BID 11/30/24 11/30/24 Unknown History tablet,extended release atorvastatin 20 mg tablet 20 mg PO DAILY 11/30/24 11/30/24 Unknown History cholecalciferol (vitamin D3) 50 50 mcg PO DAILY 11/30/24 11/30/24 Unknown History mcg (2,000 unit) tablet (Vitamin D3) fluticasone propionate 50 1 spray intranasal DAILY 11/30/24 11/30/24 Unknown History mcg/actuation nasal spray,suspension food supplemt, lactose-reduced 1 ea PO DAILY 11/30/24 11/30/24 Unknown History (Ensure oral liquid) hydrocortisone acetate 1 % topical 1 appl topical DAILY PRN Rash 11/30/24 11/30/24 Unknown History cream hydroxyzine HCl 25 mg tablet 25 mg PO TID PRN Anxiety 11/30/24 11/30/24 Unknown History lidocaine 5 % topical cream 1 appl topical DAILY PRN Pain 11/30/24 11/30/24 Unknown History olmesartan 5 mg tablet 5 mg PO DAILY 11/30/24 11/30/24 Unknown History vitamin B complex 1 tab PO DAILY 11/30/24 11/30/24 Unknown History Physical Exam Vital Signs: Vital Signs: Last Vital Signs Temp 99.5 F 12/02/24 05:03 Pulse 75 12/02/24 05:03 Resp 16 12/02/24 05:03 BP 113/60 12/02/24 05:03 Pulse Ox 93 12/02/24 05:03 O2 Del Method Nasal Cannula 12/02/24 05:03 O2 Flow Rate 2 12/02/24 05:03 BMI result Body Mass Index 26.9 Neuro: Other: She was alert and awake restless anxious trying to come out of bed stating that people were trying to hurt her. She followed some one-step commands. Face was symmetrical. Visual srivastava seem to be full. There was no focal arm or leg weakness. Plantars were flexor. Speech was okay. Results Labs 12/01/24 07:23 12/01/24 07:23 Labs: Head CT revealed moderate to severe left and moderately severe right hemispheric atrophy that was more pronounced in temporal areas and cortical areas. 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 At this time she was confused and was having anxiety, paranoia and delusions. These symptoms were probably part of the neuropsychiatric syndrome. I recommend quickly ruling out any treatable medical problem and sending her back to her place of residence as her mental status would likely worsened if she stays away in a new situation. Treatment is symptomatic. Sometime memantine 5-10 mg twice a day can make significant difference. Procedures Date of Service Date of Service: 12/02/24
[2024-12-02] MEDS: Lactated Ringers 1,000 ML 80 ML IVCONT (13:42)
--- NOTE | 2024-12-02 14:27 | HO.PM.IMPN ---
Subjective Subjective Date of Service: 12/02/24 Interval History: seen and examined this morning follow up for rib fractures, possible UTI, encephalopathy confused and agitated this am; name calling and refusing vitals, medications unable to get any significant history Constitutional Constitutional: Denies chills and Denies fever(s) Physical Exam Vital Signs: Vital Signs: Last Vital Signs Temp 99.5 F 12/02/24 05:03 Pulse 75 12/02/24 05:03 Resp 16 12/02/24 05:03 BP 113/60 12/02/24 05:03 Pulse Ox 93 12/02/24 05:03 O2 Del Method Nasal Cannula 12/02/24 05:03 O2 Flow Rate 2 12/02/24 05:03 BMI result Body Mass Index 26.9 Const: Other: awake, alert; agitated; confused Resp: Effort & Inspection: normal respiratory effort, able to speak in complete sentences, no respiratory distress and no use of accessory muscles Neuro: Other: no focal deficits appreciated; speech normal; confused; difficult to obtain full neuro exam General: moves all extremities Objective Data Active Medications Acetaminophen (Acetaminophen 325 Mg Tablet) 650 mg PO Q6H PRN PRN Reason: Pain, Mild 1-3,fever,headache Calcium Carbonate (Calcium Carbonate 750 Mg Tab.Chew) 750 mg PO Q4H PRN PRN Reason: Heartburn Ceftriaxone Sodium (Ceftriaxone Sodium 1 Gm Vial) 1 gm IVPUSH Q24H [facility] Last Admin: 12/01/24 21:53 Dose: 1 gm Documented By: MELITON Diltiazem HCl (Diltiazem Hcl Cd 240 Mg Cap.Er.Deg) 240 mg PO DAILY [facility]; Protocol Last Admin: 12/02/24 12:06 Dose: 240 mg Documented By: LORRAINE Enoxaparin Sodium (Enoxaparin Sodium 40 Mg/0.4 Ml Syringe) 40 mg SUBCUT Q24H [facility] Last Admin: 12/01/24 17:08 Dose: Not Given Documented By: RODRIGO Non-Admin Reason: Patient Refused Fluoxetine HCl (Fluoxetine Hcl 20 Mg Capsule) 20 mg PO DAILY [facility] Last Admin: 12/02/24 12:06 Dose: 20 mg Documented By: LORRAINE Hydroxyzine HCl (Hydroxyzine Hcl 25 Mg Tablet) 25 mg PO Q6H PRN PRN Reason: anxiety/restlessness Last Admin: 12/02/24 11:59 Dose: 25 mg Documented By: LORRAINE Hydroxyzine HCl (Hydroxyzine Hcl 50 Mg/Ml Vial) 25 mg IM Q4H PRN PRN Reason: agitation Lactated Ringer's (Lr) 1,000 mls @ 80 mls/hr IVCONT .[id number] [facility] Last Admin: 12/02/24 13:42 Dose: 80 mls/hr Documented By: LORRAINE Lidocaine (Lidocaine 4 % Patch Adh..Patch) 1 patch TRANSDERMA DAILY [facility]; Protocol Last Admin: 12/02/24 09:19 Dose: Not Given Documented By: LORRAINE Non-Admin Reason: agitation. pt refused Magnesium Hydroxide (Milk Of Magnesia 30 Ml Oral.Susp) 30 ml PO DAILY PRN PRN Reason: Constipation Melatonin (Melatonin 3 Mg Tablet) 6 mg PO BEDTIME PRN PRN Reason: Insomnia Last Admin: 11/30/24 20:04 Dose: 6 mg Documented By: AUDREY Morphine Sulfate (Morphine Sulfate 4 Mg/Ml Cartridge) 2 mg IVPUSH Q4H PRN; Protocol PRN Reason: Pain, Moderate(Pain Scale 4-6) Last Admin: 12/02/24 13:20 Dose: 2 mg Documented By: LORRAINE Ondansetron HCl (Ondansetron Hcl 4 Mg/2 Ml Vial) 4 mg IVPUSH Q8H PRN PRN Reason: Nausea and Vomiting Risperidone (Risperidone 1 Mg Tablet) 1 mg PO BEDTIME PRN PRN Reason: agitation/sundowning Last Admin: 11/30/24 20:04 Dose: 1 mg Documented By: AUDREY Sodium Chloride (0.9 % Sodium Chloride Flush 3 Ml Syringe) 3 ml IVFLUSH QSHIFT [facility] Last Admin: 12/02/24 09:17 Dose: 3 ml Documented By: LORRAINE Valsartan (Valsartan 40 Mg Tablet) 20 mg PO DAILY [facility] Last Admin: 12/02/24 09:19 Dose: Not Given Documented By: LORRAINE Non-Admin Reason: agitation. pt refused Labs 12/01/24 07:23 12/01/24 07:23 Assessment and Plan (1) Acute metabolic encephalopathy: Status: Acute (2) Fracture, ribs: Status: Acute (3) UTI (urinary tract infection): Status: Acute Plan 74-year-old female history of dementia UTI, Alzheimer's presents to ED for left flank left lower abdominal pain. During ER stay fell and sustained fractures of left 5th and 6th ribs. Confusion escalated inpatient unable to return to home setting Acute metabolic encephalopathy vs hospital delirium likely multifactorial due to possible UTI, obstructing kidney stone, pain medication, in the setting of dementia (reported as alzheimer's) seen by neuro - significant cerebral degeneration especially in temporal lobes, more so on the left side, which would typically result in cognitive and behavioral symptoms seen by psych - recommend to avoid hydroxyzine; recommend scheduled risperidone EKG ordered, pt not cooperative will check b12, folate, thyroid function minimal po intake - gentle IVF to prevent dehydration minimize use of narcotics if able to control pain with tylenol possible UTI continue IV ceftriaxone urine culture from 2/3 group B strep repeat urine culture pending kidney stone initial ct with 3mm obstructing stone unclear if patient is having pain related to this urology consult pending Nondisplaced fractures left 5th 6th rib Lidoderm patch and IV tylenol for pain control IV morphine for severe pain only due to confusion HTN continue baseline medications Full code Lovenox requires ongoing inpatient stay for IV antibiotics to treat UTI causing severe metabolic encephalopathy, safe disposition Quality Stroke Does the patient have a stroke diagnosis?: No VTE Prior VTE?: No VTE Risk Level:: Medical - moderate - high VTE Device Contraindication: Treatment Not Indicated VTE Drug Contraindication: N/A - Med Ordered
[2024-12-02] MEDS: risperiDONE 0.5 MG TABLET PO ×2 (15:28→22:27)
[2024-12-02] MEDS: Enoxaparin Sodium 40 MG/0.4 ML SYRINGE SUBCUT (15:30)
--- NOTE | 2024-12-02 15:42 | PM.PSYCN ---
History of Present Illness Date of Service: 12/02/2024 Chief Complaint: Metabolic encephalopathy Reason for Consult: delirium Discussed with referring provider: Yes Sources of Information: patient interviewed, chart reviewed and crisis/core team assessment reviewed HPI Narrative: Mrs. Maciel is a 74 year-old woman with hx of AD who was brought to [facility] ED due to left side pain. She was found to have a non displaced fractures of 5th and 5th ribs and mild plural effusion. Other pertinent labs include initial slight elevation of WBC (12.7), no anemia; CMP no electrolyte abnormality, BUN 14, Cr. 0.70 with a creatinine clearance of 73.2. LFT wnl, ammonia 39. TSH 1.11. UA showed +protein, +blood, +leukocytes, culture positive for strep gr B. Psychiatry asked to assess if symptoms of paranoia and increase combative behaviors are related to delirium or her underlying dx of AD. Pt seen in the room. She reports as increasingly more confused, poor attention. She had received combination of hydroxyzine, morphine and therefore presented slightly more somnolent. She tells me she is at home and ask me to leave. She is not able to tell the month, year. [facility] Medical History Nocturia more than twice per night Abdominal pain Dizziness Weight loss, non-intentional Diagnostics Vital Signs (24Hr): Vital Signs - 24 hr 12/01/24 20:16 12/02/24 05:03 Temperature 98.7 F 99.5 F Pulse Rate 83 75 Respiratory Rate 23 H 16 Blood Pressure 137/62 113/60 Pulse Oximetry 92 93 Oxygen Delivery Method Room Air Nasal Cannula Oxygen Flow Rate 2 BMI result Body Mass Index 26.9 Labs 12/01/24 07:23 12/01/24 07:23 Labs: Laboratory Results - last 48 hr 12/01/24 07:23 WBC 9.6 RBC 4.05 L Hgb 12.1 Hct 36.5 L MCV 90.1 MCH 29.9 MCHC 33.2 RDW 13.8 Plt Count 313 D MPV 10.4 Immature Gran % (Auto) 0.3 Neut % (Auto) 64.1 Lymph % (Auto) 19.1 L Miller % (Auto) 12.1 H Eos % (Auto) 3.8 Baso % (Auto) 0.6 Lymph # (Auto) 1.8 Miller # (Auto) 1.2 Eos # (Auto) 0.4 Baso # (Auto) 0.1 Abs Immat Gran (auto) 0.03 Absolute Neuts (auto) 6.1 Absolute Nucleated RBC 0.000 Nucleated RBC % (auto) 0.0 Sodium 141 Potassium 3.9 Chloride 114 H Carbon Dioxide 23 Anion Gap 8 L BUN 14 Creatinine 0.70 Estim Creat Clear Calc 73.2 Estimated GFR > 60 Random Glucose 101 Calcium 8.8 D Total Bilirubin 0.6 AST 24 ALT 11 Alkaline Phosphatase 87 Total Protein 6.2 L Albumin 3.4 L Imaging Radiology Impressions: ITS Impressions Chest CT 11/30/24 12:39 IMPRESSION: 1. Nondisplaced fractures of the left 5th and 6th ribs. 2. Tiny bilateral pleural effusions with adjacent subsegmental atelectasis. 3. Aberrant right subclavian artery. Electronically signed by: Kush Lauren MD 11/30/2024 03:17 PM [facility] [place] Exam Mental Status Exam Narrative: Appearance: wearing hospital gown, poor hygiene, in NAD Behavior: engagement limited by poor attention, somnolence. Psychomotor: no agitation or retardation noted Speech:mumbling, some delayed in response, spontaneous TP: disorganized/derailment TC: being at home, somewhat paranoid, asking this mortgage or loan underwriter to leave Mood: okay Affect: somnolent Psychosis: appears internally preoccupied Delusions: some paranoia Insight/judgment: impaired x 2. Memory/cog: alert, not oriented to place, month, year nor situation, very poor attention. Medications Medications Current Medications Acetaminophen (Acetaminophen 325 Mg Tablet) 650 mg PO Q6H PRN PRN Reason: Pain, Mild 1-3,fever,headache Calcium Carbonate (Calcium Carbonate 750 Mg Tab.Chew) 750 mg PO Q4H PRN PRN Reason: Heartburn Ceftriaxone Sodium (Ceftriaxone Sodium 1 Gm Vial) 1 gm IVPUSH Q24H [facility] Last Admin: 12/01/24 21:53 Dose: 1 gm Diltiazem HCl (Diltiazem Hcl Cd 240 Mg Cap.Er.Deg) 240 mg PO DAILY [facility]; Protocol Last Admin: 12/02/24 12:06 Dose: 240 mg Enoxaparin Sodium (Enoxaparin Sodium 40 Mg/0.4 Ml Syringe) 40 mg SUBCUT Q24H [facility] Last Admin: 12/02/24 15:30 Dose: 40 mg Fluoxetine HCl (Fluoxetine Hcl 20 Mg Capsule) 20 mg PO DAILY [facility] Last Admin: 12/02/24 12:06 Dose: 20 mg Lactated Ringer's (Lr) 1,000 mls @ 80 mls/hr IVCONT .[id number] [facility] Last Admin: 12/02/24 13:42 Dose: 80 mls/hr Acetaminophen (Ofirmev) 1,000 mg in 100 mls @ 400 mls/hr IV Q6H PRN PRN Reason: Pain, Moderate(Pain Scale 4-6) Lidocaine (Lidocaine 4 % Patch Adh..Patch) 1 patch TRANSDERMA DAILY [facility]; Protocol Last Admin: 12/02/24 09:19 Dose: Not Given Magnesium Hydroxide (Milk Of Magnesia 30 Ml Oral.Susp) 30 ml PO DAILY PRN PRN Reason: Constipation Melatonin (Melatonin 3 Mg Tablet) 6 mg PO BEDTIME PRN PRN Reason: Insomnia Last Admin: 11/30/24 20:04 Dose: 6 mg Morphine Sulfate (Morphine Sulfate 4 Mg/Ml Cartridge) 2 mg IVPUSH Q4H PRN; Protocol PRN Reason: Pain, Severe (Pain Scale 7-10) Ondansetron HCl (Ondansetron Hcl 4 Mg/2 Ml Vial) 4 mg IVPUSH Q8H PRN PRN Reason: Nausea and Vomiting Risperidone (Risperidone 0.5 Mg Tablet) 0.5 mg PO TID [facility] Last Admin: 12/02/24 15:28 Dose: 0.5 mg Sodium Chloride (0.9 % Sodium Chloride Flush 3 Ml Syringe) 3 ml IVFLUSH QSHIFT [facility] Last Admin: 12/02/24 15:28 Dose: Not Given Valsartan (Valsartan 40 Mg Tablet) 20 mg PO DAILY [facility] Last Admin: 12/02/24 09:19 Dose: Not Given Allergies Allergies Allergy/AdvReac Type Severity Reaction Status Date / Time Penicillins [PENICILLINS] Allergy Intermediate HIVES Verified 11/29/24 11:25 latex [LATEX] Allergy Mild RASH Verified 11/29/24 11:25 Assessment & Plan Assessment & Plan (1) Major neurocognitive disorder: Status: Acute Code(s): F03.90 - Unspecified dementia, unspecified severity, without behavioral disturbance, psychotic disturbance, mood disturbance, and anxiety (2) Delirium due to another medical condition: Status: Acute Code(s): F05 - Delirium due to known physiological condition Plan Mrs. Maciel is a 74 year-old woman with hx of AD, who was brought to [facility] ED after a fall. She was found to have nondisplaced fracture 5th and 6th. urine culture + for strep grp B started on ceftriaxone. Her current presentation is consistent with delirium superimposed on dementia. Recommend scheduling risperidone 0.5mg po BID. If pt agitated and refusing oral would recommend low dose of olanzapine 2.5mg IM/IV q6h prn agitation. Monitor EKG, Qtc<500ms, K>4, Mg>2. Avoid oversedation with morphine, also try other non opioid medications for pain. I would recommend to discontinue hydroxizine as antihistamine medication also worsen delirium. Will follow pts tomorrow. Total time managing care of this patient today ____ minutes.
[2024-12-02 15:47] VITALS: BP 133/82; PULSE 86; RESP 18; TEMP 36.4; O2SAT 90
[2024-12-02] MEDS: Acetaminophen 1,000 MG/100 ML PIGGYBACK 400 MG IV (17:40)
[2024-12-02 20:00] VITALS: BP 104/56; PULSE 69; RESP 16; TEMP 37.1; O2SAT 90
[2024-12-02] MEDS: cefTRIAXone sodium 1 GM VIAL IVPUSH (22:27)
[2024-12-02 23:42] VITALS: BP 130/58; PULSE 62; RESP 18; TEMP 36.7; O2SAT 93
[2024-12-03] MEDS: Acetaminophen 1,000 MG/100 ML PIGGYBACK 400 MG IV ×2 (00:39→09:39)
[2024-12-03] MEDS: Lactated Ringers 1,000 ML 80 ML IVCONT ×2 (01:23→15:51)
[2024-12-03 03:07] VITALS: BP 102/55; PULSE 56; RESP 14; TEMP 36.6; O2SAT 93
[2024-12-03 08:00] VITALS: BP 135/68; PULSE 66; RESP 16; TEMP 37.2; O2SAT 94
[2024-12-03] MEDS: Lidocaine 4 % Patch ADH..PATCH 1 PATCH TRANSDERMA (09:28)
[2024-12-03] MEDS: FLUoxetine HCl 20 MG CAPSULE PO (09:29)
[2024-12-03] MEDS: dilTIAZem HCL CD 240 MG CAP.ER.DEG PO (09:29)
[2024-12-03] MEDS: risperiDONE 0.5 MG TABLET PO ×2 (09:29→20:31)
[2024-12-03] MEDS: Valsartan 40 MG TABLET 20 MG PO (09:29)
[2024-12-03 11:19] LABS: Anion Gap 13 (12-20); Blood Urea Nitrogen 11 mg/dL (9-16); Calcium 8.9 mg/dL (8.4-10.2); Carbon Dioxide 20 mmol/L (22-29); Chloride 110 mmol/L (96-108); Creatinine Clr Calc Pharmacy 81.3; Estimated Glomerular Filt Rate > 60; Glucose Random 98 mg/dL (60-115); Potassium 3.5 mmol/L (3.3-5.1); Sodium 139 mmol/L (135-145)
--- NOTE | 2024-12-03 11:28 | HO.PM.IMPN ---
Subjective Subjective Date of Service: 12/03/24 Interval History: seen and examined this morning follow up for dilirium, suspected UTI, rib fractures calm and cooperative this morning, following commands, remains confused has pain sometimes but not able to localize pain Review of Systems Review of Systems: Yes all other systems are reviewed and are negative Constitutional Constitutional: Denies fever(s) Cardiovascular Cardiovascular: Denies dyspnea Respiratory Respiratory: Denies cough and Denies dyspnea Gastrointestinal Gastrointestinal: Denies abdominal pain Physical Exam Vital Signs: Vital Signs: Last Vital Signs Temp 98.9 F 12/03/24 08:00 Pulse 66 12/03/24 08:00 Resp 16 12/03/24 08:00 BP 135/68 12/03/24 08:00 Pulse Ox 94 12/03/24 08:00 O2 Del Method Room Air 12/03/24 08:00 O2 Flow Rate 2 12/02/24 05:03 BMI result Body Mass Index 26.9 Const: General: cooperative, comfortable, no acute distress, alert and awake Nutritional Appearance: average body habitus Orientation/consciousness: oriented to person Resp: Effort & Inspection: normal respiratory effort, able to speak in complete sentences, no respiratory distress and no use of accessory muscles Cardio: Rate: regular rate Neuro: General: oriented to person, moves all extremities and CN's II-XI intact bilaterally Extrem: General: Yes no pedal edema Objective Data Active Medications Acetaminophen (Acetaminophen 325 Mg Tablet) 650 mg PO Q6H PRN PRN Reason: Pain, Mild 1-3,fever,headache Calcium Carbonate (Calcium Carbonate 750 Mg Tab.Chew) 750 mg PO Q4H PRN PRN Reason: Heartburn Ceftriaxone Sodium (Ceftriaxone Sodium 1 Gm Vial) 1 gm IVPUSH Q24H [facility] Last Admin: 12/02/24 22:27 Dose: 1 gm Documented By: TYREE Diltiazem HCl (Diltiazem Hcl Cd 240 Mg Cap.Er.Deg) 240 mg PO DAILY [facility]; Protocol Last Admin: 12/03/24 09:29 Dose: 240 mg Documented By: LORRAINE Enoxaparin Sodium (Enoxaparin Sodium 40 Mg/0.4 Ml Syringe) 40 mg SUBCUT Q24H [facility] Last Admin: 12/02/24 15:30 Dose: 40 mg Documented By: LORRAINE Fluoxetine HCl (Fluoxetine Hcl 20 Mg Capsule) 20 mg PO DAILY [facility] Last Admin: 12/03/24 09:29 Dose: 20 mg Documented By: LORRAINE Lactated Ringer's (Lr) 1,000 mls @ 80 mls/hr IVCONT .[id number] [facility] Last Admin: 12/03/24 01:23 Dose: 80 mls/hr Documented By: ZACARIAS-WYATT Acetaminophen (Ofirmev) 1,000 mg in 100 mls @ 400 mls/hr IV Q6H PRN PRN Reason: Pain, Moderate(Pain Scale 4-6) Last Infusion: 12/03/24 09:54 Dose: Infused Documented By: LORRAINE Lidocaine (Lidocaine 4 % Patch Adh..Patch) 1 patch TRANSDERMA DAILY [facility]; Protocol Last Admin: 12/03/24 09:28 Dose: 1 patch Documented By: LORRAINE Magnesium Hydroxide (Milk Of Magnesia 30 Ml Oral.Susp) 30 ml PO DAILY PRN PRN Reason: Constipation Melatonin (Melatonin 3 Mg Tablet) 6 mg PO BEDTIME PRN PRN Reason: Insomnia Last Admin: 11/30/24 20:04 Dose: 6 mg Documented By: AUDREY Morphine Sulfate (Morphine Sulfate 4 Mg/Ml Cartridge) 2 mg IVPUSH Q4H PRN; Protocol PRN Reason: Pain, Severe (Pain Scale 7-10) Ondansetron HCl (Ondansetron Hcl 4 Mg/2 Ml Vial) 4 mg IVPUSH Q8H PRN PRN Reason: Nausea and Vomiting Risperidone (Risperidone 0.5 Mg Tablet) 0.5 mg PO TID [facility] Last Admin: 12/03/24 09:29 Dose: 0.5 mg Documented By: LORRAINE Sodium Chloride (0.9 % Sodium Chloride Flush 3 Ml Syringe) 3 ml IVFLUSH QSHIFT [facility] Last Admin: 12/03/24 09:29 Dose: Not Given Documented By: LORRAINE Non-Admin Reason: IV Running Valsartan (Valsartan 40 Mg Tablet) 20 mg PO DAILY [facility] Last Admin: 12/03/24 09:29 Dose: 20 mg Documented By: LORRAINE Labs 12/01/24 07:23 12/03/24 10:45 Labs: Laboratory Results - last 24 hr 12/03/24 10:45 Anion Gap 13 Estim Creat Clear Calc 81.3 Estimated GFR > 60 Random Glucose 98 Calcium 8.9 Assessment and Plan (1) Delirium due to another medical condition: Status: Acute (2) Acute metabolic encephalopathy: Status: Acute (3) Fracture, ribs: Status: Acute Plan This is a 74-year-old female history of dementia UTI, Alzheimer's presents to ED for left flank left lower abdominal pain. During ER stay fell and sustained fractures of left 5th and 6th ribs. Confusion escalated inpatient unable to return to home setting Acute metabolic encephalopathy vs hospital delirium multifactorial due to possible UTI, obstructing kidney stone, pain medication, in the setting of dementia (reported as alzheimer's) seen by neuro - significant cerebral degeneration especially in temporal lobes, more so on the left side, which would typically result in cognitive and behavioral symptoms seen by psych - recommend to avoid hydroxyzine; recommend scheduled risperidone for probable hospital delirium EKG ordered, pt not cooperative tsh normal; B12, folate pending minimal po intake - gentle IVF to prevent dehydration minimize use of narcotics if able to control pain with tylenol possible UTI continue IV ceftriaxone urine culture from 2/3 group B strep repeat urine culture pending kidney stone initial ct with 3mm obstructing stone pt does not seem to be having pain related to this. likely no intervention needed urology consult pending Nondisplaced fractures left 5th 6th rib Lidoderm patch and IV tylenol for pain control IV morphine for severe pain only to minimize confusion/dilirium encourage incentive spirometry HTN continue baseline medications Full code Lovenox requires ongoing inpatient stay for IV antibiotics to treat UTI causing severe metabolic encephalopathy, safe disposition PT evaluation - pending Quality Stroke Does the patient have a stroke diagnosis?: No VTE Prior VTE?: No VTE Risk Level:: Medical - moderate - high VTE Device Contraindication: Treatment Not Indicated VTE Drug Contraindication: N/A - Med Ordered
[2024-12-03 11:36] LABS: TSH reflex Free T4 0.68 uIU/mL (0.32-4.0)
--- NOTE | 2024-12-03 11:49 | MHC.CM.PN ---
Per rounds, pt. is improving, goal is for her to go home with services from [facility] and family support. CM to follow.
[2024-12-03 11:52] LABS: Folate 14.8 ng/mL (> or = 4.0); Vitamin B12 476 pg/mL (200-900)
--- NOTE | 2024-12-03 12:46 | MHC.CM.PN ---
Addendum entered by Brenda Aguilera 12/03/24 15:34: Pt is part of the [facility] program, and the SNF's in [facility] are not contracted with this, so following up with local referrals. Original Note: Pt is now medically ready to DC. Dtr has requested that referrals be submitted to [facility] near her home in [place], [place]. She requested ref to [facility], this was submitted.
--- NOTE | 2024-12-03 13:57 | PM.PSYCN ---
History of Present Illness Date of Service: 12/03/2024 Chief Complaint: Metabolic encephalopathy Discussed with referring provider: Yes Sources of Information: patient interviewed, chart reviewed and crisis/core team assessment reviewed Additional Sources of Information: daughter who was at bedside HPI Narrative: Mrs. Maciel is a 74 year-old woman with hx of AD. Pt seen yesterday when she was more disorganized, poor attention. Today, pt presents as fully awake. She is sitting, waiting for lunch. She is pleasant and smiling. She is not oriented to place, month nor situation. She denies pain. Her attention seems improved. Per daughter, prior to coming to the hospital, she was oriented to place, maybe month. Daughter reports she did have some paranoia at home. Review of Systems Review of Systems No recent cold or flu-like illness Yes all other systems are reviewed and are negative Constitutional: Denies chills and Denies fever(s) Cardiovascular: Denies dyspnea Respiratory: Denies cough and Denies dyspnea Gastrointestinal: Denies abdominal pain [facility] Medical History Nocturia more than twice per night Abdominal pain Dizziness Weight loss, non-intentional Diagnostics Vital Signs (24Hr): Vital Signs - 24 hr 12/02/24 15:47 12/02/24 20:00 12/02/24 23:42 Temperature 97.5 F 98.8 F 98.1 F Pulse Rate 86 69 62 Respiratory Rate 18 16 18 Blood Pressure 133/82 104/56 L 130/58 L Pulse Oximetry 90 L 90 L 93 Oxygen Delivery Method Room Air Room Air Room Air 12/03/24 03:07 12/03/24 08:00 Temperature 97.9 F 98.9 F Pulse Rate 56 66 Respiratory Rate 14 16 Blood Pressure 102/55 L 135/68 Pulse Oximetry 93 94 Oxygen Delivery Method Room Air Room Air BMI result Body Mass Index 26.9 Labs 12/01/24 07:23 12/03/24 10:45 Labs: Laboratory Results - last 48 hr 12/03/24 10:45 Sodium 139 Potassium 3.5 Chloride 110 H Carbon Dioxide 20 L Anion Gap 13 BUN 11 Creatinine 0.63 Estim Creat Clear Calc 81.3 Estimated GFR > 60 Random Glucose 98 Calcium 8.9 Vitamin B12 476 Folate 14.8 TSH 0.68 Imaging Radiology Impressions: ITS Impressions Chest CT 11/30/24 12:39 IMPRESSION: 1. Nondisplaced fractures of the left 5th and 6th ribs. 2. Tiny bilateral pleural effusions with adjacent subsegmental atelectasis. 3. Aberrant right subclavian artery. Electronically signed by: Kush Lauren MD 11/30/2024 03:17 PM [facility] Mental Status Exam Mental Status Exam Narrative: Appearance: wearing hospital gown, good hygiene, in NAD Behavior:pleasant Psychomotor: no agitation or retardation noted Speech:clearer, some delayed in response, spontaneous TP: underlying aphasia, but more linear to simple questions TC: feeling well, likes that it is a ladonna day Mood: okay Affect: congruent, bright Psychosis: no overt Delusions:no overt at the time Insight/judgment: impaired x 2. Memory/cog: alert, not oriented to place, month, year nor situation. Attention is improved. Medications Medications Current Medications Acetaminophen (Acetaminophen 325 Mg Tablet) 650 mg PO Q6H PRN PRN Reason: Pain, Mild 1-3,fever,headache Calcium Carbonate (Calcium Carbonate 750 Mg Tab.Chew) 750 mg PO Q4H PRN PRN Reason: Heartburn Ceftriaxone Sodium (Ceftriaxone Sodium 1 Gm Vial) 1 gm IVPUSH Q24H [facility] Last Admin: 12/02/24 22:27 Dose: 1 gm Diltiazem HCl (Diltiazem Hcl Cd 240 Mg Cap.Er.Deg) 240 mg PO DAILY [facility]; Protocol Last Admin: 12/03/24 09:29 Dose: 240 mg Enoxaparin Sodium (Enoxaparin Sodium 40 Mg/0.4 Ml Syringe) 40 mg SUBCUT Q24H [facility] Last Admin: 12/02/24 15:30 Dose: 40 mg Fluoxetine HCl (Fluoxetine Hcl 20 Mg Capsule) 20 mg PO DAILY [facility] Last Admin: 12/03/24 09:29 Dose: 20 mg Lactated Ringer's (Lr) 1,000 mls @ 80 mls/hr IVCONT .[id number] [facility] Last Admin: 12/03/24 01:23 Dose: 80 mls/hr Acetaminophen (Ofirmev) 1,000 mg in 100 mls @ 400 mls/hr IV Q6H PRN PRN Reason: Pain, Moderate(Pain Scale 4-6) Last Infusion: 02/07/25 09:54 Dose: Infused Lidocaine (Lidocaine 4 % Patch Adh..Patch) 1 patch TRANSDERMA DAILY [facility]; Protocol Last Admin: 12/03/24 09:28 Dose: 1 patch Magnesium Hydroxide (Milk Of Magnesia 30 Ml Oral.Susp) 30 ml PO DAILY PRN PRN Reason: Constipation Melatonin (Melatonin 3 Mg Tablet) 6 mg PO BEDTIME PRN PRN Reason: Insomnia Last Admin: 11/30/24 20:04 Dose: 6 mg Morphine Sulfate (Morphine Sulfate 4 Mg/Ml Cartridge) 1 mg IVPUSH Q4H [facility]; Protocol PRN Reason: Pain, Severe (Pain Scale 7-10) Ondansetron HCl (Ondansetron Hcl 4 Mg/2 Ml Vial) 4 mg IVPUSH Q8H PRN PRN Reason: Nausea and Vomiting Risperidone (Risperidone 0.5 Mg Tablet) 0.5 mg PO BID [facility] Sodium Chloride (0.9 % Sodium Chloride Flush 3 Ml Syringe) 3 ml IVFLUSH QSHIFT [facility] Last Admin: 12/03/24 09:29 Dose: Not Given Valsartan (Valsartan 40 Mg Tablet) 20 mg PO DAILY [facility] Last Admin: 12/03/24 09:29 Dose: 20 mg Allergies Allergies Allergy/AdvReac Type Severity Reaction Status Date / Time Penicillins [PENICILLINS] Allergy Intermediate HIVES Verified 11/29/24 11:25 latex [LATEX] Allergy Mild RASH Verified 11/29/24 11:25 Assessment & Plan Assessment & Plan (1) Delirium due to another medical condition: Status: Acute Code(s): F05 - Delirium due to known physiological condition (2) Major neurocognitive disorder: Status: Acute Code(s): F03.90 - Unspecified dementia, unspecified severity, without behavioral disturbance, psychotic disturbance, mood disturbance, and anxiety Plan Mrs. Maciel is a 74 year-old woman with hx of AD, who was brought [place] [facility] [place] a [place]. She was found to have nondisplaced fracture 5th and 6th. urine culture + for strep grp B started on ceftriaxone. Her current presentation is consistent with delirium superimposed on dementia. Recommend scheduling risperidone 0.5mg po BID. If pt agitated and refusing oral would recommend low dose of olanzapine 2.5mg IM/IV q6h prn agitation. Monitor EKG, Qtc<500ms, K>4, Mg>2. Avoid oversedation with morphine, also try other non opioid medications for pain. I would recommend to discontinue hydroxizine as antihistamine medication also worsen delirium. 2/7- pt presents with improved attention, seems resolving delirium but orientation impaired to place, month, year and situation. At baseline orientation is impaired (maybe with exception to month). Daughter does report that she has some paranoia at home. I would recommend that she continues on risperidone 0.5mg po BID for paranoia related to progression of AD. In terms of addition to namenda, it can be done OP. Psychiatry will sign off at this time. Please re-consult if concerns arise. Total time managing care of this patient today ____ minutes.
[2024-12-03] MEDS: Acetaminophen 325 MG TABLET 650 MG PO (15:48)
[2024-12-03] MEDS: Enoxaparin Sodium 40 MG/0.4 ML SYRINGE SUBCUT (15:55)
[2024-12-03 16:00] VITALS: BP 142/68; PULSE 80; RESP 14; TEMP 38.1; O2SAT 98
[2024-12-03 19:03] VITALS: BP 149/67; PULSE 93; RESP 18; TEMP 36.9; O2SAT 93
[2024-12-03] MEDS: cefTRIAXone sodium 1 GM VIAL IVPUSH (20:31)
[2024-12-03] MEDS: Acetaminophen 1,000 MG/100 ML PIGGYBACK 40 MG IV (21:58)
[2024-12-03 23:46] VITALS: BP 121/60; PULSE 96; RESP 20; TEMP 38.1; O2SAT 91
[2024-12-04 01:05] VITALS: TEMP 37.7
[2024-12-04] MEDS: Morphine Sulfate 2 MG/ML CARTRIDGE 1 MG IVPUSH (01:27)
[2024-12-04 04:00] VITALS: BP 157/74; PULSE 97; RESP 20; TEMP 37.1; O2SAT 96
[2024-12-04 07:05] VITALS: BP 154/68; PULSE 75; RESP 18; TEMP 36.7; O2SAT 92
[2024-12-04] MEDS: Lactated Ringers 1,000 ML 80 ML IVCONT (08:17)
[2024-12-04] MEDS: 0.9 % Sodium Chloride Flush 3 ML SYRINGE IVFLUSH ×3 (08:18→21:07)
[2024-12-04] MEDS: FLUoxetine HCl 20 MG CAPSULE PO (08:18)
[2024-12-04] MEDS: dilTIAZem HCL CD 240 MG CAP.ER.DEG PO (08:18)
[2024-12-04] MEDS: Lidocaine 4 % Patch ADH..PATCH 1 PATCH TRANSDERMA (08:18)
[2024-12-04] MEDS: risperiDONE 0.5 MG TABLET PO (08:18)
[2024-12-04] MEDS: Valsartan 40 MG TABLET 20 MG PO (08:21)
--- NOTE | 2024-12-04 12:02 | PM.UROCN ---
History of Present Illness Consult details Consult date: 12/04/24 Narrative: Jeanne is a 74-year-old female noted to have a 3 mm right UPJ stone without significant hydronephrosis. The patient denies right flank pain. Urinalysis on admission 2+ leukocytes greater than 20 RBCs and negative nitrite urine culture on 11/29/2024 greater than 100,000 strep. Repeat urine culture 12/02/2024 less than 10,000 colonies. Plan to conservatively monitor. Outpatient follow up. The patient's daughter is at the bedside plan discussed with her. Review of Systems Review of Systems: Yes all other systems are reviewed and are negative Constitutional: Constitutional: Reports no additional constitutional complaints Eyes: Eyes: Reports no additional eye complaints ENT: Reports system reviewed and no additional complaints, except as documented Cardiovascular: Cardiovascular: Reports no additional cardiovascular complaints Respiratory: Respiratory: Reports no additional respiratory complaints Gastrointestinal: Gastrointestinal: Reports no additional gastrointestinal complaints Genitourinary: Genitourinary: Reports as per HPI Musculoskeletal: Comments: Left rib fractures Integumentary/Breasts: Skin/Breast: Reports system reviewed and no additional complaints, except as docu Neurologic: Reports system reviewed and no additional complaints, except as documented Psychiatric: Psychiatric: Reports no additional psychiatric complaints Endocrine: Endocrine: Reports no additional endocrine complaints Hematologic/Lymphatic: Hematologic/Lymphatic: Reports no additional hematologic/lymphatic complaints Allergic/Immunologic: Allergic/Immunologic: Reports no additional allergic/immunologic complaints [facility] Past Medical History Medical History Nocturia more than twice per night Abdominal pain Dizziness Weight loss, non-intentional Social History Social History Household Members: None Housing: House Do you presently have visiting nurse or other home services: Yes Comment: 1:1 Patient Tobacco Use Status: Never used Tobacco Smoked in Last 30 Days: No Use of substances other than those prescribed or required for medical reasons: No Currently Displaying Signs/Symptoms of Drug Intoxication Withdrawal: No Have you been hit, kicked, punched, or otherwise hurt by someone within the past year? If so, by whom?: No Do you feel safe in your current relationship?: No Current Relationship Is there a partner from a previous relationship who is making you feel unsafe now?: No Are you made to feel afraid or neglected: No (Family answers for pt d/t confusion and hx of dementia) Advance Directives: No Advance Directives Information Provided: Yes Do you have a plan to hurt others: No Plan Recently lost weight without trying: Unsure How much weight loss: Unsure Eating poorly because of decreased appetite: Yes Nutrition screen score: 5 Nutrition Risks: On aspiration precautions Patient : No : No Poor oral hygiene: No service: No Meds Allergies Allergy/AdvReac Type Severity Reaction Status Date / Time Penicillins [PENICILLINS] Allergy Intermediate HIVES Verified 11/29/24 11:25 latex [LATEX] Allergy Mild RASH Verified 11/29/24 11:25 Active Medications: Current Medications Acetaminophen (Acetaminophen 325 Mg Tablet) 650 mg PO Q6H PRN PRN Reason: Pain, Mild 1-3,fever,headache Last Admin: 12/03/24 15:48 Dose: 650 mg Calcium Carbonate (Calcium Carbonate 750 Mg Tab.Chew) 750 mg PO Q4H PRN PRN Reason: Heartburn Ceftriaxone Sodium (Ceftriaxone Sodium 1 Gm Vial) 1 gm IVPUSH Q24H [facility] Last Admin: 12/03/24 20:31 Dose: 1 gm Diltiazem HCl (Diltiazem Hcl Cd 240 Mg Cap.Er.Deg) 240 mg PO DAILY [facility]; Protocol Last Admin: 12/04/24 08:18 Dose: 240 mg Enoxaparin Sodium (Enoxaparin Sodium 40 Mg/0.4 Ml Syringe) 40 mg SUBCUT Q24H [facility] Last Admin: 12/03/24 15:55 Dose: 40 mg Fluoxetine HCl (Fluoxetine Hcl 20 Mg Capsule) 20 mg PO DAILY [facility] Last Admin: 12/04/24 08:18 Dose: 20 mg Lactated Ringer's (Lr) 1,000 mls @ 80 mls/hr IVCONT .[id number] [facility] Last Admin: 12/04/24 08:17 Dose: 80 mls/hr Lidocaine (Lidocaine 4 % Patch Adh..Patch) 1 patch TRANSDERMA DAILY [facility]; Protocol Last Admin: 12/04/24 08:18 Dose: 1 patch Magnesium Hydroxide (Milk Of Magnesia 30 Ml Oral.Susp) 30 ml PO DAILY PRN PRN Reason: Constipation Melatonin (Melatonin 3 Mg Tablet) 6 mg PO BEDTIME PRN PRN Reason: Insomnia Last Admin: 11/30/24 20:04 Dose: 6 mg Morphine Sulfate (Morphine Sulfate 2 Mg/Ml Cartridge) 1 mg IVPUSH Q4H [facility]; Protocol PRN Reason: Pain, Severe (Pain Scale 7-10) Last Admin: 12/04/24 01:27 Dose: 1 mg Ondansetron HCl (Ondansetron Hcl 4 Mg/2 Ml Vial) 4 mg IVPUSH Q8H PRN PRN Reason: Nausea and Vomiting Risperidone (Risperidone 0.5 Mg Tablet) 0.5 mg PO BID [facility] Last Admin: 12/04/24 08:18 Dose: 0.5 mg Sodium Chloride (0.9 % Sodium Chloride Flush 3 Ml Syringe) 3 ml IVFLUSH QSHIFT [facility] Last Admin: 12/04/24 08:18 Dose: 3 ml Valsartan (Valsartan 40 Mg Tablet) 20 mg PO DAILY [facility] Last Admin: 12/04/24 08:21 Dose: 20 mg Home Medications ?Medication ?Instructions ?Recorded ?Confirmed ?Last Taken ?Type diltiazem HCl 240 mg 240 mg PO DAILY 05/28/24 11/30/24 Unknown History capsule,extended release 24 hr fluoxetine 20 mg capsule 20 mg PO DAILY 05/28/24 11/30/24 Unknown History loratadine 10 mg tablet 10 mg PO DAILY PRN Allergy Symptoms 05/28/24 11/30/24 Unknown History acetaminophen 650 mg 1,300 mg PO BID 11/30/24 11/30/24 Unknown History tablet,extended release atorvastatin 20 mg tablet 20 mg PO DAILY 11/30/24 11/30/24 Unknown History cholecalciferol (vitamin D3) 50 50 mcg PO DAILY 11/30/24 11/30/24 Unknown History mcg (2,000 unit) tablet (Vitamin D3) fluticasone propionate 50 1 spray intranasal DAILY 11/30/24 11/30/24 Unknown History mcg/actuation nasal spray,suspension food supplemt, lactose-reduced 1 ea PO DAILY 11/30/24 11/30/24 Unknown History (Ensure oral liquid) hydrocortisone acetate 1 % topical 1 appl topical DAILY PRN Rash 11/30/24 11/30/24 Unknown History cream hydroxyzine HCl 25 mg tablet 25 mg PO TID PRN Anxiety 11/30/24 11/30/24 Unknown History lidocaine 5 % topical cream 1 appl topical DAILY PRN Pain 11/30/24 11/30/24 Unknown History olmesartan 5 mg tablet 5 mg PO DAILY 11/30/24 11/30/24 Unknown History vitamin B complex 1 tab PO DAILY 11/30/24 11/30/24 Unknown History Physical Exam Vital Signs: Vital Signs: Last Vital Signs Temp 98.0 F 12/04/24 07:05 Pulse 75 12/04/24 07:05 Resp 18 12/04/24 07:05 BP 154/68 H 12/04/24 07:05 Pulse Ox 92 12/04/24 07:05 O2 Del Method Room Air 12/04/24 07:05 O2 Flow Rate 4 12/03/24 16:00 BMI result Body Mass Index 26.9 Const: General: cooperative, healthy appearing and no acute distress Orientation/consciousness: patient oriented x3 HEENT: Head: Yes normal to inspection, Yes normocephalic and Yes atraumatic Eyes: Conjunctivae: conjunctivae normal Neck: Neck: Yes normal visual inspection and Yes trachea midline Chest: Chest palpation & inspection: normal inspection of the chest Resp: Effort & Inspection: normal respiratory effort Cardio: Rate: regular rate GI: Inspection: Yes normal to inspection : External Female Exam: normal external appearance Speculum Exam - Vagina: vagina atrophic Neuro: General: patient oriented x3 Psych: Appearance: grossly normal Results Labs 12/01/24 07:23 12/03/24 10:45 Labs: Urine 11/29/24 Range/Units 14:25 Urine Color Yellow Urine Appearance Turbid Urine pH 5.5 (5.0-9.0) Ur Specific [place] 1.025 (1.005-1.025) Urine Protein 30 (1+) H (Neg-Trace) mg/dL Urine Glucose (UA) Negative (Negative) mg/dL Imaging Abdomen CT scan report/results: report reviewed and image reviewed CT scan - pelvis: report reviewed and image reviewed Additional studies: Date of Service: 11/29/24 CT abdomen and pelvis without contrast Comparison: None Findings: No consolidation or effusion. Mild atelectasis at the lung bases. Distended gallbladder with large fundal gallstone. No inflammatory change or bile duct dilatation. 3 mm obstructing right ureteropelvic junction stone. Mild hydronephrosis. No significant perinephric fat stranding. No bowel obstruction, pneumoperitoneum, or pneumatosis. Small umbilical hernia contains fat without induration. Extensive distal colonic diverticulosis without diverticulitis. Hysterectomy. Ovaries not identified. Normal appendix. Urinary bladder unremarkable. Osteopenia. Old fractures at T12, L1, L2, L3, L5, and S2. IMPRESSION: 1. 3 mm obstructing right ureteropelvic junction stone. 2. Additional findings as noted above. No CT explanation for left flank pain. Assessment and Plan (1) UTI (urinary tract infection): Qualifiers: Urinary tract infection type: acute cystitis Hematuria presence: with hematuria Qualified Code(s): N30.01 - Acute cystitis with hematuria Status: Acute (2) Ureteral calculus, right: Status: Acute Plan Plan to conservatively monitor. Outpatient follow up. The patient's daughter is at the bedside plan discussed with her. Procedures Date of Service Date of Service: 12/04/24
--- NOTE | 2024-12-04 13:50 | P.PNIM_ITS ---
Subjective Subjective Date of Service: 12/04/24 Interval History: seen and examined this morning follow up for uti, ecephalopathy remains calm and cooperative; aphagia and confusion at baseline per daughter at baseline Cardiovascular Cardiovascular: Denies chest pain Gastrointestinal Gastrointestinal: Denies abdominal pain, Denies nausea and Denies vomiting Physical Exam 2 Vital Signs: Vital Signs: Last Vital Signs Temp 98.0 F 12/04/24 07:05 Pulse 75 12/04/24 07:05 Resp 18 12/04/24 07:05 BP 154/68 H 12/04/24 07:05 Pulse Ox 92 12/04/24 07:05 O2 Del Method Room Air 12/04/24 07:05 O2 Flow Rate 4 12/03/24 16:00 BMI result Body Mass Index 26.9 Const: General: cooperative, comfortable, no acute distress, alert and awake Nutritional Appearance: average body habitus Orientation/consciousness: o riented to person Resp: Effort & Inspection: normal respiratory effort, able to speak in complete sentences, no respiratory distress and no use of accessory muscles Cardio: Rate: regular rate Neuro: General: oriented to person, moves all extremities and CN's II-XI intact bilaterally Objective Data Active Medications Acetaminophen (Acetaminophen 325 Mg Tablet) 650 mg PO Q6H PRN PRN Reason: Pain, Mild 1-3,fever,headache Last Admin: 12/03/24 15:48 Dose: 650 mg Documented By: LORRAINE Calcium Carbonate (Calcium Carbonate 750 Mg Tab.Chew) 750 mg PO Q4H PRN PRN Reason: Heartburn Ceftriaxone Sodium (Ceftriaxone Sodium 1 Gm Vial) 1 gm IVPUSH Q24H [facility] Last Admin: 12/03/24 20:31 Dose: 1 gm Documented By: PRANAV Diltiazem HCl (Diltiazem Hcl Cd 240 Mg Cap.Er.Deg) 240 mg PO DAILY [facility]; Protocol Last Admin: 12/04/24 08:18 Dose: 240 mg Documented By: VEE Enoxaparin Sodium (Enoxaparin Sodium 40 Mg/0.4 Ml Syringe) 40 mg SUBCUT Q24H [facility] Last Admin: 12/03/24 15:55 Dose: 40 mg Documented By: LORRAINE Fluoxetine HCl (Fluoxetine Hcl 20 Mg Capsule) 20 mg PO DAILY [facility] Last Admin: 12/04/24 08:18 Dose: 20 mg Documented By: VEE Lidocaine (Lidocaine 4 % Patch Adh..Patch) 1 patch TRANSDERMA DAILY [facility]; Protocol Last Admin: 12/04/24 08:18 Dose: 1 patch Documented By: VEE Magnesium Hydroxide (Milk Of Magnesia 30 Ml Oral.Susp) 30 ml PO DAILY PRN PRN Reason: Constipation Melatonin (Melatonin 3 Mg Tablet) 6 mg PO BEDTIME PRN PRN Reason: Insomnia Last Admin: 11/30/24 20:04 Dose: 6 mg Documented By: AUDREY Morphine Sulfate (Morphine Sulfate 2 Mg/Ml Cartridge) 1 mg IVPUSH Q4H PRN; Protocol PRN Reason: Pain, Severe (Pain Scale 7-10) Last Admin: 12/04/24 01:27 Dose: 1 mg Documented By: TYREE Ondansetron HCl (Ondansetron Hcl 4 Mg/2 Ml Vial) 4 mg IVPUSH Q8H PRN PRN Reason: Nausea and Vomiting Risperidone (Risperidone 0.5 Mg Tablet) 0.5 mg PO BID [facility] Last Admin: 12/04/24 08:18 Dose: 0.5 mg Documented By: VEE Sodium Chloride (0.9 % Sodium Chloride Flush 3 Ml Syringe) 3 ml IVFLUSH QSHIFT [facility] Last Admin: 12/04/24 08:18 Dose: 3 ml Documented By: VEE Valsartan (Valsartan 40 Mg Tablet) 20 mg PO DAILY [facility] Last Admin: 12/04/24 08:21 Dose: 20 mg Documented By: VEE Labs 12/01/24 07:23 12/03/24 10:45 Microbiology Microbiology Results: Microbiology 12/02/24 06:32 Urine Culture - Final Urine clean catch - Clean Catch Midstream Assessment and Plan (1) Delirium due to another medical condition: Status: Acute (2) Alzheimer's type dementia: Status: Acute (3) Fracture, ribs: Status: Acute Plan This is a 74-year-old female history of dementia UTI, Alzheimer's presents to ED for left flank left lower abdominal pain. During ER stay fell and sustained fractures of left 5th and 6th ribs. Confusion escalated inpatient unable to return to home setting Acute metabolic encephalopathy vs hospital delirium multifactorial due to possible UTI, obstructing kidney stone, pain medication, in the setting of alzheimer's dementia seen by neuro - significant cerebral degeneration especially in temporal lobes, more so on the left side, which would typically result in cognitive and behavioral symptoms seen by psych - recommend to avoid hydroxyzine; recommend scheduled risperidone for probable hospital delirium EKG ordered, pt not cooperative tsh, B12, folate wnl minimize use of narcotics if able to control pain with tylenol possible UTI urine culture from 2/3 group B strep, repeat urine culture negative (was previously treated with po meds) as pt is improving will complete course of IV ceftriaxone kidney stone initial ct with 3mm obstructing stone pt does not seem to be having pain related to this see by urology, conservative management for now Nondisplaced fractures left 5th 6th ribs Lidoderm patch and IV tylenol for pain control IV morphine for severe pain only to minimize confusion/dilirium encourage incentive spirometry HTN continue baseline diltiazem, valsartan Full code Lovenox requires ongoing inpatient stay for IV antibiotics to treat UTI, safe disposition PT evaluation - STR or home with 19/05 care Quality Stroke Does the patient have a stroke diagnosis?: No VTE Prior VTE?: No VTE Risk Level:: Medical - moderate - high VTE Device Contraindication: Treatment Not Indicated VTE Drug Contraindication: N/A - Med Ordered
--- NOTE | 2024-12-04 14:50 | PC.NURSE ---
Patient family members- daughter (who mentioned she was an occupational therapist) and niece ( nurse ) at bedside asking to get patient up to the recliner. This RN told them that it is not safe to get patient up at this time in acute condition. Patient requires acute physical therapy at this time. It was reiterated that the patient is a/ox1, does not follow commands, and a heavy +2 person assist to get out of bed. She is a high fall risk, fell in ED per nursing report sustaining rib fractures. Despite this, family members were witnessed getting patient out of bed without any hospital staff assistance, placing patient at risk of sustaining another fall while here in the hospital. Staff intervened. While up on her feet, each family member was supporting body weight on either side of the patient and repetitively giving her commands to move her lower extremities. Patient appeared very confused and required a lot of cueing in order to move in small increments, if at all. Then patient was incontinent on the side of the bed. Patient was then placed on the commode by family members, assist of ANGELO Bolanos, and myself (+3-4 assist OOB). We then got her cleaned up and back into bed. CHER Gilliam made aware of incident via tigertext. Patient remains a high fall risk. Lisa Elias, migrant leader aware.
[2024-12-04 15:08] VITALS: BP 137/66; PULSE 76; RESP 18; TEMP 37.1; O2SAT 94
--- NOTE | 2024-12-04 15:11 | MHC.CM.PN ---
BUDDY SPOKE TO PTS DAUGHTER WHO REPORTS SHE DOES NOT WANT TO PLACE PT IN A SNF IN THIS AREA SHE SAYS THE PT DOES NOT DO WELL IN NEW ENVIRONMENTS, ESPECIALLY IF FAMILY IS UNABLE TO VISIT DAILY SHE SAYS SHE DID CALL A SNF NEAR HER TO INQUIRE ABOUT PRIVATE PAY, HOWEVER THEY WILL NOT HAVE A BED UNTIL THIS COMING WEEK SHE SAY SHE WOULD ALSO LIKE TO TAKE THE PT TO HER HOME IF SHE WERE JUST ABLE TO AMBULATE SAFELY ENOUGH PER DISCUSSION, OVIDIO WITH BE IN CONTACT WITH PTS CARE TEAM FROM [place] FOR ASSISTANCE WITH DC PLANNING SHE HOPES THEY CAN EITHER DO AN OUT OF CONTRACT AGREEMENT WITH A SNF NEAR HER, OR MAYBE INCREASE HOURS IF PT IS IMPROVED ENOUGH FOR HOME. SHE ALSO REITERATES, SHE MAY WANT TO TRY BRINGING HER TO HER HOME HOWEVER CANNOT MAKE A DEFINITE DECISION UNTIL SHE SEES HOW PT IS DOING ON FRIDAY
[2024-12-04] MEDS: Acetaminophen 325 MG TABLET 650 MG PO (17:54)
[2024-12-04] MEDS: Enoxaparin Sodium 40 MG/0.4 ML SYRINGE SUBCUT (17:54)
[2024-12-04 19:45] VITALS: BP 139/62; PULSE 82; RESP 26; TEMP 38.9; O2SAT 90
[2024-12-04] MEDS: Ketorolac Tromethamine 15 MG/ML VIAL IVPUSH (21:01)
[2024-12-04] MEDS: cefTRIAXone sodium 1 GM VIAL IVPUSH (21:01)
[2024-12-04 23:02] VITALS: BP 115/56; PULSE 57; RESP 18; TEMP 37.3; O2SAT 91
[2024-12-05 03:35] VITALS: BP 164/73; PULSE 81; RESP 26; TEMP 39.3; O2SAT 92
[2024-12-05] MEDS: Acetaminophen 325 MG TABLET 650 MG PO (03:48)
[2024-12-05 05:50] VITALS: TEMP 39.1
[2024-12-05 06:06] LABS: MANUAL DIFF FLAG NO
[2024-12-05 06:23] LABS: Anion Gap 13 (12-20); Blood Urea Nitrogen 10 mg/dL (9-16); C Reactive Protein 5.72 mg/dL (< or = 0.50); Calcium 8.6 mg/dL (8.4-10.2); Carbon Dioxide 20 mmol/L (22-29); Chloride 114 mmol/L (96-108); Creatinine Clr Calc Pharmacy 71.1; Estimated Glomerular Filt Rate > 60; Glucose Random 124 mg/dL (60-115); Potassium 3.1 mmol/L (3.3-5.1); Sodium 144 mmol/L (135-145)
[2024-12-05 06:24] LABS: Lactic Acid 1.3 mmol/L (0.5-2.0)
[2024-12-05] MEDS: Ketorolac Tromethamine 15 MG/ML VIAL IVPUSH (06:29)
[2024-12-05 06:41] LABS: Basophils Percent Auto 0.2 % (0-2); Eosinophils Percent Auto 0.3 % (0-4); Hematocrit 36.1 % (37.0-47.0); Hemoglobin 12.1 g/dl (12.0-16.0); Imm Gran Abs Auto 0.04 X10*3/uL (0.00-0.03); Imm Gran Pct Auto 0.4 % (0.0-0.4); Lymphocytes Absolute Auto 0.7 X10*3/uL (1.2-4.9); Lymphocytes Percent Auto 6.8 % (20-40); Mean Corpuscular HGB Conc 33.5 g/dl (31.0-35.0); Mean Corpuscular Hemoglobin 29.6 pg (27.0-33.0); Mean Corpuscular Volume 88.3 fL (80.0-98.0); Mean Platelet Volume 10.5 fL (9.4-12.3); Monocytes Absolute Auto 1.2 X10*3/uL (0.1-1.2); Monocytes Percent Auto 11.6 % (2-11); Neutrophils Absolute Auto 8.1 x10*3/uL (2.0-8.3); Neutrophils Percent Auto 80.7 % (45-73); Platelet Count 272 X10*3/uL (160-400); Red Blood Count 4.09 X10*6/uL (4.20-5.50); Red Cell Distribution Width 13.5 % (11.0-16.0)
[2024-12-05 07:53] VITALS: BP 135/63; PULSE 64; RESP 20; TEMP 36.7; O2SAT 92
[2024-12-05 08:17] LABS: Magnesium 1.8 mg/dL (1.6-2.6)
[2024-12-05] MEDS: Lidocaine 4 % Patch ADH..PATCH 1 PATCH TRANSDERMA (08:39)
[2024-12-05] MEDS: 0.9 % Sodium Chloride Flush 3 ML SYRINGE IVFLUSH ×3 (08:40→20:23)
[2024-12-05 08:49] VITALS: TEMP 37.4
[2024-12-05 09:13] LABS: Lactic Acid 0.8 mmol/L (0.5-2.0)
[2024-12-05] MEDS: Acetaminophen 1,000 MG/100 ML PIGGYBACK 400 MG IV ×2 (09:27→20:23)
[2024-12-05] MEDS: Lactated Ringers 1,000 ML 80 ML IVCONT ×2 (09:30→13:42)
[2024-12-05 09:57] LABS: Adenovirus PCR Not Detected (Not Detect.); Bordetella parapertussis PCR Not Detected (Not Detect.); Bordetella pertussis PCR Not Detected (Not Detect.); Chlamydia pneumoniae PCR Not Detected (Not Detect.); Coronavirus 229E PCR Not Detected (Not Detect.); Coronavirus HKU1 PCR Not Detected (Not Detect.); Coronavirus NL63 PCR Not Detected (Not Detect.); Coronavirus OC43 PCR Not Detected (Not Detect.); Human metapneumovirus PCR Not Detected (Not Detect.); Influenza A PCR Not Detected (Not Detect.); Influenza B PCR Not Detected (Not Detect.); Mycoplasma pneumoniae PCR Not Detected (Not Detect.); Parainfluenza 1 PCR Not Detected (Not Detect.); Parainfluenza 2 PCR Not Detected (Not Detect.); Parainfluenza 3 PCR Not Detected (Not Detect.); Parainfluenza 4 PCR Not Detected (Not Detect.); RSV PCR Not Detected (Not Detect.); Rhino/Enterovirus PCR Not Detected (Not Detect.)
[2024-12-05 09:59] LABS: SARS-CoV-2 PCR Not Detected (Not Detect.)
--- NOTE | 2024-12-05 10:48 | MHC.SLORD ---
Speech Language Pathology Order Status: Order placed for ST consult to assess swallow. Pt has aphasia and confusion at [facility], unable to participate in bedside clinical exam today d/t lethargy. PIANO ASSEMBLER to see pt tomorrow for swallow eval.
--- NOTE | 2024-12-05 11:18 | HO.PM.IMPN ---
Subjective Subjective Date of Service: 12/05/24 Interval History: seen and examined this morning follow up for dilirum, UTI overnight developed fever, this morning lethargic unable to obtain ROS Physical Exam Vital Signs: Vital Signs: Last Vital Signs Temp 99.3 F 12/05/24 08:49 Pulse 64 12/05/24 07:53 Resp 20 12/05/24 07:53 BP 135/63 12/05/24 07:53 Pulse Ox 92 12/05/24 07:53 O2 Del Method Room Air 12/05/24 07:53 O2 Flow Rate 4 12/03/24 16:00 BMI result Body Mass Index 26.9 Const: Other: lethargic General: cooperative, comfortable, no acute distress, alert and awake Nutritional Appearance: average body habitus Orientation/consciousness: oriented to person Resp: Effort & Inspection: normal respiratory effort, no respiratory distress and no use of accessory muscles Cardio: Rate: regular rate GI: Inspection: No distended Palpation (GI): Soft to palpation Neuro: Other: no focal deficits appreciated; speech normal; confused; difficult to obtain full neuro exam General: oriented to person, moves all extremities and CN's II-XI intact bilaterally Extrem: General: Yes no pedal edema Objective Data Active Medications Acetaminophen (Acetaminophen 325 Mg Tablet) 650 mg PO Q6H PRN PRN Reason: Pain, Mild 1-3,fever,headache Last Admin: 12/05/24 03:48 Dose: 650 mg Documented By: TYREE Calcium Carbonate (Calcium Carbonate 750 Mg Tab.Chew) 750 mg PO Q4H PRN PRN Reason: Heartburn Diltiazem HCl (Diltiazem Hcl Cd 240 Mg Cap.Er.Deg) 240 mg PO DAILY [facility]; Protocol Last Admin: 12/05/24 09:04 Dose: Not Given Documented By: VEE Non-Admin Reason: lethargic Enoxaparin Sodium (Enoxaparin Sodium 40 Mg/0.4 Ml Syringe) 40 mg SUBCUT Q24H [facility] Last Admin: 12/04/24 17:54 Dose: 40 mg Documented By: VEE Fluoxetine HCl (Fluoxetine Hcl 20 Mg Capsule) 20 mg PO DAILY [facility] Last Admin: 12/05/24 09:04 Dose: Not Given Documented By: VEE Non-Admin Reason: lethargic Acetaminophen (Ofirmev) 1,000 mg in 100 mls @ 400 mls/hr IV Q6H PRN PRN Reason: fever, pain 1-3 Stop: 12/06/24 03:14 Last Infusion: 12/05/24 10:31 Dose: Infused Documented By: VEE Lactated Ringer's (Lr) 1,000 mls @ 80 mls/hr IVCONT .[id number] [facility] Last Admin: 12/05/24 09:30 Dose: 80 mls/hr Documented By: VEE Levofloxacin (Levaquin) 750 mg in 150 mls @ 50 mls/hr IV Q24H [facility] Lidocaine (Lidocaine 4 % Patch Adh..Patch) 1 patch TRANSDERMA DAILY [facility]; Protocol Last Admin: 12/05/24 08:39 Dose: 1 patch Documented By: VEE Magnesium Hydroxide (Milk Of Magnesia 30 Ml Oral.Susp) 30 ml PO DAILY PRN PRN Reason: Constipation Melatonin (Melatonin 3 Mg Tablet) 6 mg PO BEDTIME PRN PRN Reason: Insomnia Last Admin: 11/30/24 20:04 Dose: 6 mg Documented By: AUDREY Morphine Sulfate (Morphine Sulfate 2 Mg/Ml Cartridge) 1 mg IVPUSH Q4H PRN; Protocol PRN Reason: Pain, Severe (Pain Scale 7-10) Last Admin: 12/04/24 01:27 Dose: 1 mg Documented By: TYREE Ondansetron HCl (Ondansetron Hcl 4 Mg/2 Ml Vial) 4 mg IVPUSH Q8H PRN PRN Reason: Nausea and Vomiting Risperidone (Risperidone 0.5 Mg Tablet) 0.5 mg PO BID [facility] Last Admin: 12/05/24 09:05 Dose: Not Given Documented By: VEE Non-Admin Reason: lethargic Sodium Chloride (0.9 % Sodium Chloride Flush 3 Ml Syringe) 3 ml IVFLUSH QSHIFT [facility] Last Admin: 12/05/24 08:40 Dose: 3 ml Documented By: VEE Valsartan (Valsartan 40 Mg Tablet) 20 mg PO DAILY [facility] Last Admin: 12/05/24 09:05 Dose: Not Given Documented By: VEE Non-Admin Reason: lethargic Labs 12/05/24 05:56 12/05/24 05:56 Labs: Laboratory Results - last 24 hr 12/05/24 12/05/24 12/05/24 05:56 08:43 08:50 MCV 88.3 MCH 29.6 MCHC 33.5 RDW 13.5 Plt Count 272 MPV 10.5 Immature Gran % (Auto) 0.4 Neut % (Auto) 80.7 H Lymph % (Auto) 6.8 L [place] % (Auto) 11.6 H Eos % (Auto) 0.3 Baso % (Auto) 0.2 Lymph # (Auto) 0.7 L [place] # (Auto) 1.2 Eos # (Auto) 0.0 Baso # (Auto) 0.0 Abs Immat Gran (auto) 0.04 H Absolute Neuts (auto) 8.1 Absolute Nucleated RBC 0.000 Nucleated RBC % (auto) 0.0 Anion Gap 13 Estim Creat Clear Calc 71.1 Estimated GFR > 60 Random Glucose 124 H Lactic Acid 1.3 0.8 Calcium 8.6 Magnesium 1.8 C-Reactive Protein 5.72 H Respiratory Panel Rodriguez See Note Adenovirus (Rapid PCR) Not Detected B.pert (TEM-PCR) Not Detected B.parapertussis DNA PCR Not Detected C. pneumoniae DNA (PCR) Not Detected Coronavirus OC43 (PCR) Not Detected Coronavirus HKU1 (PCR) Not Detected Coronavirus 229E (PCR) Not Detected Coronavirus NL63 (PCR) Not Detected Human Metapneumovir PCR Not Detected Influenza A (RT-PCR) Not Detected Influenza B (RT-PCR) Not Detected M. pneumoniae (PCR) Not Detected Parainfluenza 1 (PCR) Not Detected Parainfluenza 2 (PCR) Not Detected Parainfluenza 3 (PCR) Not Detected Parainfluenza 4 (PCR) Not Detected RSV (PCR) Not Detected Entero/Rhino (PCR) Not Detected SARS-CoV-2 RNA (RT-PCR) Not Detected Assessment and Plan (1) Delirium due to another medical condition: Status: Acute (2) Alzheimer's type dementia: Status: Acute (3) Fracture, ribs: Status: Acute (4) Acute UTI: Status: Acute (5) Pneumonia: Status: Acute Plan This is a 74-year-old female history of dementia UTI, Alzheimer's presents to ED for left flank left lower abdominal pain. During ER stay fell and sustained fractures of left 5th and 6th ribs. Confusion escalated inpatient unable to return to home setting. course complicated by fever/pneumonia sepsis due to pneumonia patient with fever and tachypnea. lactic acid normal. no severe features repeat cxr 12/05 showing left basilar consolidation and small left effusion given rib fractures will obtain chest CT to rule out hemothorax (h/h has remained stable) PCN allergy, start IV levaquin and check MRSA swab, if positive add vanco RPP negative blood cultures pending speech evaluation pending diarrhea check gi panel Acute metabolic encephalopathy vs hospital delirium multifactorial due to possible UTI, obstructing kidney stone, pain medication, in the setting of alzheimer's dementia seen by neuro - significant cerebral degeneration especially in temporal lobes, more so on the left side, which would typically result in cognitive and behavioral symptoms. can consider addition of namenda as outpatient seen by psych - recommend to avoid hydroxyzine; recommend scheduled risperidone for probable hospital delirium was initially combative and agitated but responded well to risperidone. no agitation for the past few days tsh, B12, folate wnl minimize use of narcotics if able to control pain with tylenol after agitation improved, on PT eval pt noted to have right knee buckling/ favoring one side (possibly due to left side rib fractures/pain) but no over extremity weakness on exam. d/w neuro, MRI would be only way to rule out stroke definitively, daughter did not want to pursue MRI hypokalemia likely due to diarrhea replace and follow possible UTI urine culture from 2/3 group B strep, repeat urine culture negative (was previously treated with po meds) completed course of IV ceftriaxone kidney stone initial ct with 3mm obstructing stone pt does not seem to be having pain related to this see by urology, conservative management for now Nondisplaced fractures left 5th 6th ribs Lidoderm patch and IV tylenol for pain control IV morphine for severe pain only to minimize confusion/dilirium encourage incentive spirometry HTN continue baseline diltiazem, valsartan Full code Lovenox requires ongoing inpatient stay for IV antibiotics to treat UTI, safe disposition PT evaluation - STR or home with 24/ care Quality Stroke Does the patient have a stroke diagnosis?: No VTE Prior VTE?: No VTE Risk Level:: Medical - moderate - high VTE Device Contraindication: Treatment Not Indicated VTE Drug Contraindication: N/A - Med Ordered
[2024-12-05] MEDS: levoFLOXacin/D5W 750 MG/150 ML PIGGYBACK 50 MG IV (11:25)
[2024-12-05] MEDS: Potassium Chloride Packet 20 MEQ PACKET 40 MEQ PO ×2 (13:43→20:22)
[2024-12-05 15:03] LABS: Alanine Aminotransferase 33 U/L (0-31); Albumin Level 3.4 g/dL (3.5-5.0); Alkaline Phosphatase 76 U/L (39-117); Aspartate Amino Transferase 46 U/L (5-31); Bilirubin Direct 0.1 mg/dL (0.0-0.5); Bilirubin Total 0.3 mg/dL (0.0-1.0); Total Protein 6.4 g/dL (6.5-8.0)
[2024-12-05 15:14] LABS: MRSA Nasal PCR NEGATIVE (Negative); SA Nasal PCR NEGATIVE (Negative)
[2024-12-05] MEDS: Enoxaparin Sodium 40 MG/0.4 ML SYRINGE SUBCUT (15:47)
[2024-12-05 16:00] VITALS: BP 139/69; PULSE 68; RESP 18; TEMP 36.3; O2SAT 93
[2024-12-05 19:26] VITALS: BP 133/70; PULSE 80; RESP 18; TEMP 36.5; O2SAT 92
[2024-12-05] MEDS: Melatonin 3 MG TABLET 6 MG PO (20:22)
[2024-12-05] MEDS: risperiDONE 0.5 MG TABLET PO (20:22)
[2024-12-06] MEDS: Lactated Ringers 1,000 ML 80 ML IVCONT ×3 (00:07→20:48)
[2024-12-06 03:30] VITALS: BP 158/73; PULSE 71; RESP 18; TEMP 36.6; O2SAT 92
[2024-12-06 07:10] VITALS: BP 147/73; PULSE 68; RESP 19; TEMP 36.3; O2SAT 96
[2024-12-06] MEDS: Lidocaine 4 % Patch ADH..PATCH 1 PATCH TRANSDERMA (09:38)
[2024-12-06] MEDS: 0.9 % Sodium Chloride Flush 3 ML SYRINGE IVFLUSH ×3 (09:39→20:49)
[2024-12-06] MEDS: levoFLOXacin/D5W 750 MG/150 ML PIGGYBACK 50 MG IV (10:21)
--- NOTE | 2024-12-06 10:33 | HO.PM.IMPN ---
Subjective Subjective Date of Service: 12/06/24 Interval History: seen and examined this morning follow up for dilirum, UTI overnight developed fever, this morning lethargic unable to obtain ROS Physical Exam Vital Signs: Vital Signs: Last Vital Signs Temp 97.3 F 12/06/24 07:10 Pulse 68 12/06/24 07:10 Resp 19 12/06/24 07:10 BP 147/73 H 12/06/24 07:10 Pulse Ox 96 12/06/24 07:10 O2 Del Method Room Air 12/06/24 07:10 O2 Flow Rate 4 12/03/24 16:00 BMI result Body Mass Index 26.9 Appearing in no acute distress, more awake lung sounds are clear to auscultation heart regular rate rhythm, clear S1, S2 positive bowel sounds, abdomen is soft, nontender neuro patient is alert, confused Objective Data Active Medications Acetaminophen (Acetaminophen 325 Mg Tablet) 650 mg PO Q6H PRN PRN Reason: Pain, Mild 1-3,fever,headache Last Admin: 12/05/24 03:48 Dose: 650 mg Documented By: TYREE Calcium Carbonate (Calcium Carbonate 750 Mg Tab.Chew) 750 mg PO Q4H PRN PRN Reason: Heartburn Diltiazem HCl (Diltiazem Hcl Cd 240 Mg Cap.Er.Deg) 240 mg PO DAILY [facility]; Protocol Last Admin: 12/06/24 09:48 Dose: Not Given Documented By: VEE Non-Admin Reason: Patient Refused Enoxaparin Sodium (Enoxaparin Sodium 40 Mg/0.4 Ml Syringe) 40 mg SUBCUT Q24H [facility] Last Admin: 12/05/24 15:47 Dose: 40 mg Documented By: VEE Fluoxetine HCl (Fluoxetine Hcl 20 Mg Capsule) 20 mg PO DAILY [facility] Last Admin: 12/06/24 09:48 Dose: Not Given Documented By: VEE Non-Admin Reason: Patient Refused Levofloxacin (Levaquin) 750 mg in 150 mls @ 50 mls/hr IV Q24H [facility] Last Admin: 12/06/24 10:21 Dose: 50 mls/hr Documented By: VEE Lactated Ringer's (Lr) 1,000 mls @ 80 mls/hr IVCONT .[id number] [facility] Last Admin: 12/06/24 10:26 Dose: 80 mls/hr Documented By: VEE Lidocaine (Lidocaine 4 % Patch Adh..Patch) 1 patch TRANSDERMA DAILY [facility]; Protocol Last Admin: 12/06/24 09:38 Dose: 1 patch Documented By: VEE Magnesium Hydroxide (Milk Of Magnesia 30 Ml Oral.Susp) 30 ml PO DAILY PRN PRN Reason: Constipation Melatonin (Melatonin 3 Mg Tablet) 6 mg PO BEDTIME PRN PRN Reason: Insomnia Last Admin: 12/05/24 20:22 Dose: 6 mg Documented By: ALONZO Morphine Sulfate (Morphine Sulfate 2 Mg/Ml Cartridge) 1 mg IVPUSH Q4H PRN; Protocol PRN Reason: Pain, Severe (Pain Scale 7-10) Last Admin: 12/04/24 01:27 Dose: 1 mg Documented By: TYREE Ondansetron HCl (Ondansetron Hcl 4 Mg/2 Ml Vial) 4 mg IVPUSH Q8H PRN PRN Reason: Nausea and Vomiting Risperidone (Risperidone 0.5 Mg Tablet) 0.5 mg PO BID [facility] Last Admin: 12/06/24 09:47 Dose: Not Given Documented By: VEE Non-Admin Reason: Patient Refused Sodium Chloride (0.9 % Sodium Chloride Flush 3 Ml Syringe) 3 ml IVFLUSH QSHIFT [facility] Last Admin: 12/06/24 09:39 Dose: 3 ml Documented By: VEE Valsartan (Valsartan 40 Mg Tablet) 20 mg PO DAILY [facility] Last Admin: 12/06/24 09:46 Dose: Not Given Documented By: VEE Non-Admin Reason: Patient Refused Labs 12/05/24 05:56 12/05/24 05:56 Labs: Laboratory Results - last 24 hr 12/05/24 12/05/24 05:56 13:41 Total Bilirubin 0.3 Direct Bilirubin 0.1 AST 46 H ALT 33 H Alkaline Phosphatase 76 Total Protein 6.4 L Albumin 3.4 L Nasal Screen MRSA (PCR) NEGATIVE Nasal S. aureus Screen NEGATIVE Nasal MRSA/S.aureus Interp SEE NOTE Assessment and Plan (1) Delirium due to another medical condition: Status: Acute (2) Alzheimer's type dementia: Status: Acute (3) Fracture, ribs: Status: Acute (4) Acute UTI: Status: Acute (5) Pneumonia: Status: Acute Plan This is a 74-year-old female history of dementia UTI, Alzheimer's presents to ED for left flank left lower abdominal pain. During ER stay fell and sustained fractures of left 5th and 6th ribs. Confusion escalated inpatient unable to return to home setting. course complicated by fever/pneumonia Sepsis due to pneumonia. Sepsis resolved repeat cxr 12/05 showing left basilar consolidation and small left effusion given rib fractures will obtain chest CT to rule out hemothorax (h/h has remained stable) IV levaquin RPP negative blood cultures pending speech evaluation pending Diarrhea GI panel pending Acute metabolic encephalopathy vs hospital delirium. slowly improving multifactorial due to UTI, obstructing kidney stone, pain medication, in the setting of alzheimer's dementia seen by neuro - significant cerebral degeneration especially in temporal lobes, more so on the left side, which would typically result in cognitive and behavioral symptoms. can consider addition of namenda as outpatient seen by psych - recommend to avoid hydroxyzine; recommend scheduled risperidone for probable hospital delirium, was initially combative and agitated but responded well to risperidone. no agitation for the past few days tsh, B12, folate wnl minimize use of narcotics if able to control pain with tylenol PT eval> pt noted to have right knee buckling/ favoring one side (possibly due to left side rib fractures/pain) but no over extremity weakness on exam. d/w neuro, MRI would be only way to rule out stroke definitively, daughter did not want to pursue MRI Hypokalemia likely due to diarrhea replace and follow Group B strep UTI urine culture from 2/3 group B strep, repeat urine culture negative (was previously treated with po meds) completed course of IV ceftriaxone Kidney stone initial ct with 3mm obstructing stone pt does not seem to be having pain related to this seen by urology, conservative management for now Nondisplaced fractures left 5th 6th ribs Lidoderm patch and IV tylenol for pain control IV morphine for severe pain only to minimize confusion/delirium encourage incentive spirometry HTN continue baseline diltiazem, valsartan Full code Lovenox requires ongoing inpatient stay for IV antibiotics to treat UTI, safe disposition PT evaluation - STR or home with 24/ care Quality Stroke Does the patient have a stroke diagnosis?: No VTE Prior VTE?: No VTE Risk Level:: Medical - moderate - high VTE Device Contraindication: Treatment Not Indicated VTE Drug Contraindication: N/A - Med Ordered
--- NOTE | 2024-12-06 10:53 | MHC.CM.PN ---
Addendum entered by Brigette Cantu 12/06/24 14:01: BUDDY SPOKE WITH PTS DAUGHTER, OVIDIO, WHO REPORTS SHE ALSO SPOKE TO DAVID AT [facility] WHO SAID THEY WOULD TRY TO DO A ONE TIME CONTRACT WITH A SNF IN HER AREA. SHE REPORTS SHE WOULD PREFER PT GO TO EITHER [facility] OR [facility]. REFERRALS SENT TO BOTH. Addendum entered by Brigette Cantu 12/06/24 12:29: BUDDY SPOKE WITH DAVID AT [employer] SHE REPORTS THEY MAY BE ABLE TO DO A ONE TIME CONTRACT WITH A SNF NEAR PTS DAUGHTER CM ATTEMPTED TO CONTACT PTS DAUGHTER TO DISCUSS SNF PREFERENCES, HOWEVER CALL WENT TO AND MAILBOX IS FULL Addendum entered by Brigette Cantu 12/06/24 11:34: CM [facility]CE[phone] WAS LEFT REQUESTING A RETURN CALL Original Note: BUDDY ATTEMPTED TO CONTACT [facility] [phone], TO DISCUSS POTENTIAL DC PLANS FOR THIS PT A WAS LEFT REQUESTING A RETURN CALL
[2024-12-06 10:56] LABS: Adenovirus F 40/41 Not Detected (Not Detect.); Astrovirus Not Detected (Not Detect.); Campylobacter Not Detected (Not Detect.); Cryptosporidium Not Detected (Not Detect.); Cyclospora cayetanensis Not Detected (Not Detect.); E. coli EAEC Not Detected (Not Detect.); E. coli EPEC Not Detected (Not Detect.); E. coli ETEC Not Detected (Not Detect.); E. coli STEC Not Detected (Not Detect.); Entamoeba histolytica Not Detected (Not Detect.); Giardia lamblia Not Detected (Not Detect.); Norovirus GI/GII Not Detected (Not Detect.); Plesiomonas shigelloides Not Detected (Not Detect.); Rotavirus A Not Detected (Not Detect.); Salmonella Not Detected (Not Detect.); Sapovirus Not Detected (Not Detect.); Shigella sp./EIEC Not Detected (Not Detect.); Vibrio Not Detected (Not Detect.); Vibrio Cholerae Not Detected (Not Detect.); Yersinia enterocolitica Not Detected (Not Detect.)
--- NOTE | 2024-12-06 14:05 | MHC.SL.SWA ---
Speech Pathologist Impression: Mild to moderate oral phase dysphgia d/t missing dentition, pt endorses avoiding foods she knows she cannot chew Risk of Aspiration Due to: Reduced Cognition Dysphasia Diet Status: Liquid Consistency and Strategies for Safe Swallow: Liquid Intake Recommendation: Thin Liquid Intake Strategies: Small Sips Solid Food Consistency: Dietary Recommendations: Pureed (NDD1) Additional Modifications to Solid Foods: Oral Medication Intake: Whole with Puree Please contact the pharmacy regarding appropriate crushable or liquid drug formulations that are available whenever modified delivery is recommended. Compensatory Strategies and Precautions to be Taken for Safe Swallow: Sitting Upright (90 deg) Small Bites and Sips Alternate Liquids/Solids Rate of Ingestion Change Supervision While Eating and Drinking for Safe Swallow: Total Supervision (1:1) Foods to Avoid: Swallowing Recommended Treatments: Compens. Strategy Educat. Recommendation for Speech: Inpatient Speech Therapy Comment: Frequency/Duration: Daily M-F Date Range for Service Req: Timeline to reassess: Preschool Principal Clinican/Clinical Fellow: No Supervisory Statement: I have reviewed and agree with the student/clinical fellow's documentation: N/A Speech Language Pathologist: Nerissa Chen M.A., CCC-[employer]
[2024-12-06 14:34] LABS: Anion Gap 12 (12-20); Blood Urea Nitrogen 13 mg/dL (9-16); Calcium 8.8 mg/dL (8.4-10.2); Carbon Dioxide 23 mmol/L (22-29); Chloride 113 mmol/L (96-108); Creatinine Clr Calc Pharmacy 70.2; Estimated Glomerular Filt Rate > 60; Glucose Random 138 mg/dL (60-115); Potassium 3.6 mmol/L (3.3-5.1); Sodium 144 mmol/L (135-145)
[2024-12-06 15:49] VITALS: BP 158/74; PULSE 83; RESP 18; TEMP 36.7; O2SAT 95
[2024-12-06] MEDS: Loperamide HCl 2 MG CAPSULE PO (16:32)
[2024-12-06] MEDS: Acetaminophen 325 MG TABLET 650 MG PO (16:32)
[2024-12-06] MEDS: Enoxaparin Sodium 40 MG/0.4 ML SYRINGE SUBCUT (16:32)
[2024-12-06 19:47] VITALS: BP 135/68; PULSE 85; RESP 18; TEMP 36.2; O2SAT 91
[2024-12-06] MEDS: risperiDONE 0.5 MG TABLET PO (20:48)
[2024-12-06] MEDS: Melatonin 3 MG TABLET 6 MG PO (20:48)
[2024-12-07 04:00] VITALS: BP 143/67; PULSE 68; RESP 18; TEMP 36.3; O2SAT 96
[2024-12-07 07:37] VITALS: BP 147/72; PULSE 70; RESP 18; TEMP 36.8; O2SAT 92
[2024-12-07] MEDS: Lactated Ringers 1,000 ML 80 ML IVCONT (09:11)
[2024-12-07] MEDS: Valsartan 40 MG TABLET 20 MG PO (09:12)
[2024-12-07] MEDS: risperiDONE 0.5 MG TABLET PO ×2 (09:13→20:54)
--- NOTE | 2024-12-07 11:54 | HO.PM.IMPN ---
Subjective Subjective Date of Service: 12/07/24 Interval History: seen and examined this morning follow up for delirum, UTI Physical Exam Vital Signs: Vital Signs: Last Vital Signs Temp 98.2 F 12/07/24 07:37 Pulse 70 12/07/24 07:37 Resp 18 12/07/24 07:37 BP 147/72 H 12/07/24 07:37 Pulse Ox 92 12/07/24 07:37 O2 Del Method Room Air 12/07/24 07:37 O2 Flow Rate 4 12/03/24 16:00 BMI result Body Mass Index 26.9 Appearing in no acute distress lung sounds are clear to auscultation heart regular rate rhythm, clear S1, S2 positive bowel sounds, abdomen is soft, nontender neuro patient is alert x3, no focal deficits Objective Data Active Medications Acetaminophen (Acetaminophen 325 Mg Tablet) 650 mg PO Q6H PRN PRN Reason: Pain, Mild 1-3,fever,headache Last Admin: 12/06/24 16:32 Dose: 650 mg Documented By: VEE Calcium Carbonate (Calcium Carbonate 750 Mg Tab.Chew) 750 mg PO Q4H PRN PRN Reason: Heartburn Diltiazem HCl (Diltiazem Hcl Cd 240 Mg Cap.Er.Deg) 240 mg PO DAILY [facility]; Protocol Last Admin: 12/07/24 09:25 Dose: Not Given Documented By: BALDEMAR Non-Admin Reason: pt unable to swallow Enoxaparin Sodium (Enoxaparin Sodium 40 Mg/0.4 Ml Syringe) 40 mg SUBCUT Q24H [facility] Last Admin: 12/06/24 16:32 Dose: 40 mg Documented By: VEE Fluoxetine HCl (Fluoxetine Hcl Oral Solution 20 Mg/5 Ml Solution) 20 mg PO DAILY [facility] Lactated Ringer's (Lr) 1,000 mls @ 80 mls/hr IVCONT .[id number] [facility] Last Admin: 12/07/24 09:11 Dose: 80 mls/hr Documented By: BALDEMAR Levofloxacin (Levaquin) 750 mg in 150 mls @ 100 mls/hr IV Q24H [facility] Lidocaine (Lidocaine 4 % Patch Adh..Patch) 1 patch TRANSDERMA DAILY [facility]; Protocol Last Admin: 12/07/24 09:24 Dose: Not Given Documented By: BALDEMAR Non-Admin Reason: Patient Refused Loperamide HCl (Loperamide Hcl 2 Mg Capsule) 2 mg PO Q4H PRN PRN Reason: Diarrhea Last Admin: 12/06/24 16:32 Dose: 2 mg Documented By: VEE Magnesium Hydroxide (Milk Of Magnesia 30 Ml Oral.Susp) 30 ml PO DAILY PRN PRN Reason: Constipation Melatonin (Melatonin 3 Mg Tablet) 6 mg PO BEDTIME PRN PRN Reason: Insomnia Last Admin: 12/06/24 20:48 Dose: 6 mg Documented By: ALONZO Morphine Sulfate (Morphine Sulfate 2 Mg/Ml Cartridge) 1 mg IVPUSH Q4H PRN; Protocol PRN Reason: Pain, Severe (Pain Scale 7-10) Last Admin: 12/04/24 01:27 Dose: 1 mg Documented By: TYREE Ondansetron HCl (Ondansetron Hcl 4 Mg/2 Ml Vial) 4 mg IVPUSH Q8H PRN PRN Reason: Nausea and Vomiting Risperidone (Risperidone 0.5 Mg Tablet) 0.5 mg PO BID [facility] Last Admin: 12/07/24 09:13 Dose: 0.5 mg Documented By: BALDEMAR Sodium Chloride (0.9 % Sodium Chloride Flush 3 Ml Syringe) 3 ml IVFLUSH QSHIFT [facility] Last Admin: 12/07/24 09:24 Dose: Not Given Documented By: BALDEMAR Non-Admin Reason: IV Running Valsartan (Valsartan 40 Mg Tablet) 20 mg PO DAILY [facility] Last Admin: 12/07/24 09:12 Dose: 20 mg Documented By: BALDEMAR Labs 12/05/24 05:56 12/06/24 14:06 Labs: Laboratory Results - last 24 hr 12/03/24 12/06/24 10:45 14:06 Anion Gap 13 12 Estim Creat Clear Calc 81.3 70.2 Estimated GFR > 60 > 60 Random Glucose 98 138 H Calcium 8.9 8.8 Vitamin B12 476 Folate 14.8 TSH 0.68 Microbiology Microbiology Results: Microbiology 12/05/24 08:43 Blood Culture - Preliminary Blood - Venous No growth after 48 hours. 12/05/24 08:43 Blood Culture - Preliminary Blood - Venous No growth after 48 hours. Assessment and Plan (1) Delirium due to another medical condition: Status: Acute (2) Alzheimer's type dementia: Status: Acute (3) Fracture, ribs: Status: Acute (4) Acute UTI: Status: Acute (5) Pneumonia: Status: Acute Plan This is a 74-year-old female history of dementia UTI, Alzheimer's presents to ED for left flank left lower abdominal pain. During ER stay fell and sustained fractures of left 5th and 6th ribs. Confusion escalated inpatient unable to return to home setting. course complicated by fever/pneumonia Sepsis due to pneumonia. Sepsis resolved repeat cxr 12/05 showing left basilar consolidation and small left effusion IV levaquin RPP negative blood cultures neg Diarrhea GI panel negative lomotil Acute metabolic encephalopathy vs hospital delirium. 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 can consider addition of namenda as outpatient seen by psych>recommend to avoid hydroxyzine; recommend scheduled risperidone for probable hospital delirium, was initially combative and agitated but responded well to risperidone. no agitation for the past few days tsh, B12, folate wnl minimize use of narcotics if able to control pain with tylenol PT eval> pt noted to have right knee buckling/ favoring one side (possibly due to left side rib fractures/pain) but no over extremity weakness on exam. d/w neuro, MRI would be only way to rule out stroke definitively, daughter did not want to pursue MRI Hypokalemia likely due to diarrhea replace and follow Group B strep UTI urine culture from 2/3 group B strep, repeat urine culture negative (was previously treated with po meds) completed course of IV ceftriaxone Kidney stone initial ct with 3mm obstructing stone pt does not seem to be having pain related to this seen by urology, conservative management for now Nondisplaced fractures left 5th 6th ribs Lidoderm patch and IV tylenol for pain control IV morphine for severe pain only to minimize confusion/delirium encourage incentive spirometry HTN continue baseline diltiazem, valsartan Full code Attending Dr. Bryan Lerma PT evaluation - STR or home with 24/ care, waiting for STR bed availability Quality Stroke Does the patient have a stroke diagnosis?: No VTE Prior VTE?: No VTE Risk Level:: Medical - moderate - high VTE Device Contraindication: Treatment Not Indicated VTE Drug Contraindication: N/A - Med Ordered
[2024-12-07] MEDS: FLUoxetine HCl Oral Solution 20 MG/5 ML SOLUTION PO (12:52)
[2024-12-07 15:49] VITALS: BP 160/82; PULSE 77; RESP 18; TEMP 36.6; O2SAT 93
--- NOTE | 2024-12-07 15:54 | MHC.CM.PN ---
BUDDY continued to work today with Silke at [facility], the pt.'s dtr, and SNFs in [facility] to see if pt. can go there for STR. Awaiting response from Sandhya Wallace (clinical info faxed today) and KELLY.
[2024-12-07] MEDS: Enoxaparin Sodium 40 MG/0.4 ML SYRINGE SUBCUT (17:29)
[2024-12-07] MEDS: 0.9 % Sodium Chloride Flush 3 ML SYRINGE IVFLUSH (17:30)
--- NOTE | 2024-12-07 17:56 | MHC.SL.SWA ---
Speech Pathologist Impression: Mild Oral Phase Dysphagia Risk of Aspiration Due to: Reduced Cognition Dysphasia Diet Status: UPGRADE to NDD3 Liquid Consistency and Strategies for Safe Swallow: Liquid Intake Recommendation: Thin Liquid Intake Strategies: Small Sips Solid Food Consistency: Dietary Recommendations: Chopped/Advanced (NDD3) Additional Modifications to Solid Foods: FITTER'S ASSISTANT to f/u 1-2x to monitor tolerance Oral Medication Intake: Whole with Puree Please contact the pharmacy regarding appropriate crushable or liquid drug formulations that are available whenever modified delivery is recommended. Compensatory Strategies and Precautions to be Taken for Safe Swallow: Sitting Upright (90 deg) Small Bites and Sips Alternate Liquids/Solids Rate of Ingestion Change Avoid Specific Foods Supervision While Eating and Drinking for Safe Swallow: Total Assistance (1:1) Foods to Avoid: [place] hard or tough to chew solids Swallowing Recommended Treatments: Compens. Strategy Educat. Recommendation for Speech: Inpatient Speech Therapy Comment: Frequency/Duration: Daily M-F Date Range for Service Req: Timeline to reassess: Retail Merchandising Specialist Clinican/Clinical Fellow: No Supervisory Statement: I have reviewed and agree with the student/clinical fellow's documentation: N/A Speech Language Pathologist: Pauline Carolina M.A., CCC-FITTER'S ASSISTANT
[2024-12-07 19:36] VITALS: BP 183/85; PULSE 72; RESP 18; TEMP 36.5; O2SAT 94
[2024-12-07] MEDS: Melatonin 3 MG TABLET 6 MG PO (20:54)
[2024-12-08 04:00] VITALS: BP 146/67; PULSE 75; RESP 16; TEMP 36.4; O2SAT 95
[2024-12-08 07:23] VITALS: BP 150/75; PULSE 61; RESP 18; TEMP 36.2; O2SAT 93
[2024-12-08] MEDS: 0.9 % Sodium Chloride Flush 3 ML SYRINGE IVFLUSH (09:36)
--- NOTE | 2024-12-08 12:36 | HO.PM.IMPN ---
Subjective Subjective Date of Service: 12/08/24 Interval History: seen and examined this morning follow up for delirum, UTI more confused today Physical Exam Vital Signs: Vital Signs: Last Vital Signs Temp 97.2 F 12/08/24 07:23 Pulse 61 12/08/24 07:23 Resp 18 12/08/24 07:23 BP 150/75 H 12/08/24 07:23 Pulse Ox 93 12/08/24 07:23 O2 Del Method Room Air 12/08/24 07:23 O2 Flow Rate 4 12/03/24 16:00 BMI result Body Mass Index 26.9 Appearing in no acute distress lung sounds are clear to auscultation heart regular rate rhythm, clear S1, S2 positive bowel sounds, abdomen is soft, nontender neuro patient is alert, confused Objective Data Active Medications Acetaminophen (Acetaminophen 325 Mg Tablet) 650 mg PO Q6H PRN PRN Reason: Pain, Mild 1-3,fever,headache Last Admin: 12/06/24 16:32 Dose: 650 mg Documented By: VEE Calcium Carbonate (Calcium Carbonate 750 Mg Tab.Chew) 750 mg PO Q4H PRN PRN Reason: Heartburn Diltiazem HCl (Diltiazem Hcl Cd 240 Mg Cap.Er.Deg) 240 mg PO DAILY [facility]; Protocol Last Admin: 12/08/24 09:39 Dose: Not Given Documented By: BALDEMAR Non-Admin Reason: Patient Refused Enoxaparin Sodium (Enoxaparin Sodium 40 Mg/0.4 Ml Syringe) 40 mg SUBCUT Q24H [facility] Last Admin: 12/07/24 17:29 Dose: 40 mg Documented By: BALDEMAR Fluoxetine HCl (Fluoxetine Hcl Oral Solution 20 Mg/5 Ml Solution) 20 mg PO DAILY [facility] Last Admin: 12/08/24 09:39 Dose: Not Given Documented By: BALDEMAR Non-Admin Reason: Patient Refused Levofloxacin (Levaquin) 750 mg in 150 mls @ 100 mls/hr IV Q24H [facility] Last Admin: 12/07/24 14:40 Dose: Not Given Documented By: BALDEMAR Non-Admin Reason: Med Not Available Comments: HCP aware Lidocaine (Lidocaine 4 % Patch Adh..Patch) 1 patch TRANSDERMA DAILY [facility]; Protocol Last Admin: 12/08/24 09:39 Dose: Not Given Documented By: BALDEMAR Non-Admin Reason: Patient Refused Loperamide HCl (Loperamide Hcl 2 Mg Capsule) 2 mg PO Q4H PRN PRN Reason: Diarrhea Last Admin: 12/06/24 16:32 Dose: 2 mg Documented By: VEE Magnesium Hydroxide (Milk Of Magnesia 30 Ml Oral.Susp) 30 ml PO DAILY PRN PRN Reason: Constipation Melatonin (Melatonin 3 Mg Tablet) 6 mg PO BEDTIME PRN PRN Reason: Insomnia Last Admin: 12/07/24 20:54 Dose: 6 mg Documented By: MARGARITA Morphine Sulfate (Morphine Sulfate 2 Mg/Ml Cartridge) 1 mg IVPUSH Q4H PRN; Protocol PRN Reason: Pain, Severe (Pain Scale 7-10) Last Admin: 12/04/24 01:27 Dose: 1 mg Documented By: TYREE Ondansetron HCl (Ondansetron Hcl 4 Mg/2 Ml Vial) 4 mg IVPUSH Q8H PRN PRN Reason: Nausea and Vomiting Risperidone (Risperidone 0.5 Mg Tablet) 0.5 mg PO BID [facility] Last Admin: 12/08/24 09:40 Dose: Not Given Documented By: BALDEMAR Non-Admin Reason: Patient Refused Sodium Chloride (0.9 % Sodium Chloride Flush 3 Ml Syringe) [facility] Last Admin: 12/08/24 09:36 Dose: 3 ml Documented By: BALDEMAR Valsartan (Valsartan 40 Mg Tablet) 20 mg PO DAILY [facility] Last Admin: 12/08/24 09:40 Dose: Not Given Documented By: BALDEMAR Non-Admin Reason: Patient Refused Labs 12/05/24 05:56 12/06/24 14:06 Microbiology Microbiology Results: Microbiology 12/05/24 08:43 Blood Culture - Preliminary Blood - Venous No growth after 48 hours. 12/05/24 08:43 Blood Culture - Preliminary Blood - Venous No growth after 48 hours. Assessment and Plan (1) Delirium due to another medical condition: Status: Acute (2) Alzheimer's type dementia: Status: Acute (3) Fracture, ribs: Status: Acute (4) Acute UTI: Status: Acute (5) Pneumonia: Status: Acute Plan This is a 74-year-old female history of dementia UTI, Alzheimer's presents to ED for left flank left lower abdominal pain. During ER stay fell and sustained fractures of left 5th and 6th ribs. Confusion escalated inpatient unable to return to home setting. course complicated by fever/pneumonia Acute metabolic encephalopathy vs hospital delirium. more confused today multifactorial due to UTI, obstructing kidney stone, pain medication, in the setting of alzheimer's dementia seen by neuro>significant cerebral degeneration especially in temporal lobes, more so on the left side, which would typically result in cognitive and behavioral symptoms. can consider addition of namenda as outpatient seen by psych>recommend to avoid hydroxyzine; recommend scheduled risperidone for probable hospital delirium, was initially combative and agitated but responded well to risperidone. tsh, B12, folate wnl minimize use of narcotics if able to control pain with tylenol PT eval> pt noted to have right knee buckling/ favoring one side (possibly due to left side rib fractures/pain) but no over extremity weakness on exam. d/w neuro, MRI would be only way to rule out stroke definitively, daughter did not want to pursue MRI Sepsis due to pneumonia. Sepsis resolved repeat cxr 12/05 showing left basilar consolidation and small left effusion oral levaquin RPP negative blood cultures neg Diarrhea GI panel negative lomotil Hypokalemia likely due to diarrhea replace and follow Group B strep UTI urine culture from 11/29 group B strep, repeat urine culture negative (was previously treated with po meds) completed course of IV ceftriaxone Kidney stone initial ct with 3mm obstructing stone pt does not seem to be having pain related to this seen by urology, conservative management for now Nondisplaced fractures left 5th 6th ribs Lidoderm patch and IV tylenol for pain control IV morphine for severe pain only to minimize confusion/delirium encourage incentive spirometry HTN continue baseline diltiazem, valsartan Full code Attending Dr. Bryan Lerma PT evaluation - STR or home with 19/05 care, waiting for STR bed availability Quality Stroke Does the patient have a stroke diagnosis?: No VTE Prior VTE?: No VTE Risk Level:: Medical - moderate - high VTE Device Contraindication: Treatment Not Indicated VTE Drug Contraindication: N/A - Med Ordered
[2024-12-08] MEDS: levoFLOXacin 750 MG TABLET PO (14:12)
--- NOTE | 2024-12-08 14:33 | MHC.SL.SWA ---
Speech Pathologist Impression: Emotional lability interfered with PO today, limited intake as pt refused. Pt tolerated ice cream and thin liquids without overt s/s of aspiration Risk of Aspiration Due to: Reduced Cognition Dysphasia Diet Status: Liquid Consistency and Strategies for Safe Swallow: Liquid Intake Recommendation: Thin Liquid Intake Strategies: Small Sips Solid Food Consistency: Dietary Recommendations: Chopped/Advanced (NDD3) Additional Modifications to Solid Foods: CURATOR OF PHOTOGRAPHY AND PRINTS to f/u 1-2x to monitor tolerance Oral Medication Intake: Whole with Puree Please contact the pharmacy regarding appropriate crushable or liquid drug formulations that are available whenever modified delivery is recommended. Compensatory Strategies and Precautions to be Taken for Safe Swallow: Sitting Upright (90 deg) Small Bites and Sips Alternate Liquids/Solids Rate of Ingestion Change Avoid Specific Foods Supervision While Eating and Drinking for Safe Swallow: Total Assistance (1:1) Foods to Avoid: [place] hard or tough to chew solids Swallowing Recommended Treatments: Compens. Strategy Educat. Recommendation for Speech: Inpatient Speech Therapy Comment: Frequency/Duration: Daily M-F Date Range for Service Req: Timeline to reassess: Director Of Automation Clinican/Clinical Fellow: No Supervisory Statement: I have reviewed and agree with the student/clinical fellow's documentation: N/A Speech Language Pathologist: Yina Luis M.S., CCC-CURATOR OF PHOTOGRAPHY AND PRINTS
--- NOTE | 2024-12-08 15:56 | P.DS_ITS ---
DS: Providers Provider Date of Service: 12/08/24 Date of admission: 11/30/24 15:59 Date of discharge: 12/08/24 Primary care physician: Sean Roberts MD Consults: 12/02/24 10:46 Consult to Neurology Routine Consulting Provider: [facility] Reason for consultation: encephalopathy Has provider been notified: No Consult to Psychiatry Routine Consulting Provider: [facility] Reason for consultation: encephalopathy ? psych vs dementia Has provider been notified: No 12/02/24 16:15 Consult to Urology Routine Consulting Provider: [facility] Reason for consultation: 3mm obstructing UPJ stone on CT, possible uti Has provider been notified: No DS: Diagnosis Discharge Diagnosis (1) Delirium due to another medical condition: Status: Acute (2) Alzheimer's type dementia: Status: Acute (3) Fracture, ribs: Status: Acute (4) Acute UTI: Status: Acute (5) Pneumonia: Status: Acute DS: Summary Hospital Course Hospital Course: History and physical as per admitting provider. 74-year-old female history of dementia UTI, Alzheimer's presents to ED for left flank left lower abdominal pain. Patient states flank. It is worse on movement. Patient denies any r ecent trauma. Due to pain patient rather not walk due to pain. Patient has sent me she moves her torso and walk she has flank low back pain. Patient denies any urinary/bowel incontinence. GREY WASHER was presents to confirm patient's history. Patient and GREY WASHER denies any fever or chills or coughing. Admitted to physician observation after fall in ER with fracture of left 5th and 6th ribs; urine with active sediment empirically started on Ceftin orally. Alzheimer's dementia worsened in the backdrop of UTI. Patient lives alone and unable to return home Acute metabolic encephalopathy vs hospital delirium. more confused today, multifactorial due to UTI, obstructing kidney stone, pain medication, in the setting of alzheimer's dementia, seen by neuro>significant cerebral degeneration especially in temporal lobes, more so on the left side, which would typically result in cognitive and behavioral symptoms. can consider addition of namenda as outpatient. seen by psych>recommend to avoid hydroxyzine; recommend scheduled risperidone. tsh, B12, folate wnl. PT eval> pt noted to have right knee buckling/ favoring one side (possibly due to left side rib fractures/pain) but no over extremity weakness on exam. d/w neuro, MRI would be only way to rule out stroke definitively, daughter did not want to pursue MRI. Daughter will be taking the patient home to [place] for a few days and then he will be coming back here because her brother is returning from out of town. Patient will follow up with the primary care provider for further management and care. Sepsis due to pneumonia. Sepsis resolved . Treated with Rocephin and then Levaquin. RPP well as blood cultures Diarrhea. GI panel negative may use Lomotil as needed Hypokalemia. Secondary to diarrhea, resolved Group B strep UTI. Treated with IV Rocephin Kidney stone initial CT scan 0 3 mm obstructing stone, seen by Urology recommended conservative management, no need for surgical procedure Nondisplaced fractures left 5th 6th ribs, treated with IV morphine, IV Tylenol. May use Lidoderm patch as needed. Can alternate with Tylenol and NSAID and IV tylenol for pain control HTN continue baseline diltiazem, valsartan Time Attestation Discharge Coordination Time (in mins): 42 Quality: Safe Use of Opioids Does Pt have an Active Cancer Diagnosis on the Problem List?: No Quality: Stroke Does the patient have a stroke diagnosis?: No Physical Exam Vital Signs: Vital Signs: Last Vital Signs Temp 97.2 F 12/08/24 07:23 Pulse 61 12/08/24 07:23 Resp 18 12/08/24 07:23 BP 150/75 H 12/08/24 07:23 Pulse Ox 93 12/08/24 07:23 O2 Del Method Room Air 12/08/24 07:23 O2 Flow Rate 4 12/03/24 16:00 BMI result Body Mass Index 26.9 Appearing in no acute distress head is normocephalic atraumatic eyes pupils are PERRLA sclera is anicteric mouth throat mucous membranes are intact and moist neck is supple no lymphadenopathy, no JVD noted lung sounds are clear to auscultation heart regular rate rhythm, clear S1, S2 positive bowel sounds, abdomen is soft, nontender neuro patient is alert x3, no focal deficits DS: Data Data Completed and Pending Labs on day of discharge: Preliminary micro results at discharge 12/05/24 08:43 Blood Culture - Preliminary Blood - Venous No growth after 48 hours. 12/05/24 08:43 Blood Culture - Preliminary Blood - Venous No growth after 48 hours. Discharge Plan Discharge Anticipated Discharge Date/Time: 12/08/24 14:39 Patient Disposition: Home, Self-Care Discharge Diagnosis: Acute metabolic encephalopathy Hospital delirium Sepsis Pneumonia Diarrhea Hypokalemia Group B strep UTI Nondisplaced fracture left 5th, 6th rib Referrals: [facility] [[place] Group] (3 mm obstructing UVJ stone. UTI) Sean Roberts MD [Primary Care Provider] - 1 Week Discharge Medications: New risperidone 0.5 mg Tablet 0.5 mg PO BID Qty: 60 0RF meloxicam 7.5 mg tablet 7.5 mg PO BID Qty: 60 0RF (DME) Wheel chair Kit See Rx Instructions .Route Qty: 1 0RF Rx Instructions: As directed Continued atorvastatin 20 mg Tablet 20 mg PO DAILY hydrocortisone acetate 1 % Cream 1 appl TOPICAL DAILY PRN (Reason: Rash) lidocaine 5 % Cream 1 appl TOPICAL DAILY PRN (Reason: Pain) acetaminophen 650 mg Tablet Extended Release 1,300 mg PO BID vitamin B complex Tablet 1 tab PO DAILY hydroxyzine HCl 25 mg Tablet 25 mg PO TID PRN (Reason: Anxiety) fluticasone propionate 50 mcg/actuation [place],Suspension 1 spray INTRANASAL DAILY Rx Instructions: administer into each nostril olmesartan 5 mg Tablet 5 mg PO DAILY Ensure Liquid 1 ea PO DAILY cholecalciferol (vitamin D3) [Vitamin D3] 50 mcg (2,000 unit) Tablet 50 mcg PO DAILY diltiazem HCl 240 mg capsule,extended release 24hr 240 mg PO DAILY loratadine 10 mg tablet 10 mg PO DAILY PRN (Reason: Allergy Symptoms) fluoxetine 20 mg capsule 20 mg PO DAILY Discharge Orders: Discharge Order (Routine); Ordered 12/08/24 Ordered By: Anali Durham Diet: Advance to usual diet Activity on Discharge: As tolerated Stand Alone Forms: Patient Portal Discharge page Print Language: [place] Care Plan Goals: Take medications as prescribed Health Concerns: Acute metabolic encephalopathy Hospital delirium Sepsis Pneumonia Diarrhea Hypokalemia Group B strep UTI Nondisplaced fracture left 5th, 6th rib Plan of Treatment: Follow-up with primary care provider as needed Assessment: See discharge summary Patient Instructions: Urinary Tract Infection in Women (ED), Ureteral Stones (ED)
--- NOTE | 2024-12-08 16:06 | MHC.CM.PN ---
Pt. has been medically cleared for DC, she will go home to her daughter's home and she will have family care. Family to transport.
== END 2024-12-08 18:13 | disposition home or self-care (01) | DRG 689 ==
LOC: HO.ED 11-30 15:31 → HO.EDOVER 11-30 16:27 → HO.IMC 11-30 19:28
PROVIDERS: Internal Medicine; Nurse Practitioner Family; Physician Assistant; Physician Assistant Medical; Admitting Provider Hospitalist; Emergency Provider Emergency Medicine; PCP Internal Medicine; Visit Provider Nurse Practitioner Acute Care
DX: N39.0 Urinary tract infection, site not specified (principal); A41.9 Sepsis, unspecified organism; G93.41 Metabolic encephalopathy; J18.9 Pneumonia, unspecified organism; S22.42XA Multiple fractures of ribs, left side, initial encounter for closed fracture; F05 Delirium due to known physiological condition; F02.818 Dementia in other diseases classified elsewhere, unspecified severity, with other behavioral disturbance; N20.1 Calculus of ureter; J91.8 Pleural effusion in other conditions classified elsewhere; S01.01XA Laceration without foreign body of scalp, initial encounter; I10 Essential (primary) hypertension; B95.1 Streptococcus, group B, as the cause of diseases classified elsewhere; E87.6 Hypokalemia; G30.9 Alzheimer's disease, unspecified; W19.XXXA Unspecified fall, initial encounter; Z20.822 Contact with and (suspected) exposure to COVID-19; Z79.899 Other long term (current) drug therapy
CPT/HCPCS: 0241U; 36415; 70450; 71045; 71250; 72125; 74176; 80048; 80053; 80076; 81001; 82140; 82607; 82746; 83605; 83690; 83735; 83880; 84443; 85025; 86140; 87040; 87086; 87147; 87507; 87633; 87640; 87641; 92526; 92610; 97112; 97162; 97530; 99285; J0131; J0696; J1650; J1885; J1956; J2060; J2270; J2359; J3410; J7120

== ENCOUNTER → 2024-11-29 11:46 | Outpatient (BNV) | payer OTHER, SELFPAY | PROVIDERS: Emergency Provider Emergency Medicine; Visit Provider Hospitalist | DX: G30.9 Alzheimer's disease, unspecified (principal); F02.80 Dementia in other diseases classified elsewhere, unspecified severity, without behavioral disturbance, psychotic disturbance, mood disturbance, and anxiety; F05 Delirium due to known physiological condition; S22.49XA Multiple fractures of ribs, unspecified side, initial encounter for closed fracture | CPT/HCPCS: 99223; 99232 ==

== ENCOUNTER → 2024-11-29 15:25 | Outpatient (BNV) | payer OTHER, SELFPAY | PROVIDERS: Emergency Provider Emergency Medicine; Visit Provider Radiology Diagnostic Radiology | DX: N13.0 Hydronephrosis with ureteropelvic junction obstruction (principal); M47.892 Other spondylosis, cervical region; J34.89 Other specified disorders of nose and nasal sinuses | CPT/HCPCS: 70450; 72125; 74176 ==

== ENCOUNTER → 2024-11-30 01:02 | Outpatient (BNV) | payer OTHER, SELFPAY | PROVIDERS: Emergency Provider Emergency Medicine; Visit Provider Radiology Diagnostic Radiology | DX: S22.42XA Multiple fractures of ribs, left side, initial encounter for closed fracture (principal); J90 Pleural effusion, not elsewhere classified; J98.11 Atelectasis; R09.89 Other specified symptoms and signs involving the circulatory and respiratory systems; R45.1 Restlessness and agitation | CPT/HCPCS: 71045; 71250 ==

== ENCOUNTER 2024-11-30 15:59 | Outpatient (BNV) | payer MEDICARE, SELFPAY | END 2024-12-05 07:54 | PROVIDERS: Admitting Provider Hospitalist; Emergency Provider Emergency Medicine; PCP Internal Medicine; Visit Provider Radiology Diagnostic Radiology | DX: S22.42XA Multiple fractures of ribs, left side, initial encounter for closed fracture (principal); J90 Pleural effusion, not elsewhere classified; R91.8 Other nonspecific abnormal finding of lung field | CPT/HCPCS: 71045; 71250 ==

== ENCOUNTER → 2024-11-30 15:59 | Outpatient (BNV) | payer MEDICARE, SELFPAY | PROVIDERS: Admitting Provider Hospitalist; Emergency Provider Emergency Medicine; PCP Internal Medicine; Visit Provider Urology | DX: N30.01 Acute cystitis with hematuria (principal); N20.1 Calculus of ureter | CPT/HCPCS: 99222 ==

== ENCOUNTER → 2024-11-30 15:59 | Outpatient (BNV) | payer MEDICARE, SELFPAY | PROVIDERS: Admitting Provider Hospitalist; Emergency Provider Emergency Medicine; PCP Internal Medicine; Visit Provider Psychiatry & Neurology Neurology | DX: G93.40 Encephalopathy, unspecified (principal) | CPT/HCPCS: 99222 ==

== ENCOUNTER → 2024-11-30 15:59 | Outpatient (BNV) | payer MEDICARE, SELFPAY | PROVIDERS: Admitting Provider Hospitalist; Emergency Provider Emergency Medicine; PCP Internal Medicine; Visit Provider Social Worker | DX: F03.90 Unspecified dementia, unspecified severity, without behavioral disturbance, psychotic disturbance, mood disturbance, and anxiety (principal) | CPT/HCPCS: 99232 ==